=== PATIENT | male | born 1975 | race American Indian/Alaskan Native ===

== ENCOUNTER 2017-11-12 01:58 | Inpatient (IN) | payer OTHER ==
[2017-11-12 03:41] LABS: Hematocrit 23.9 % (35.5-45.6); Mean Corpuscular HGB Conc 33 % (32-34); Mean Corpuscular Hemoglobin 30 pg (28-32); Mean Corpuscular Volume 89 fl (84-94); Platelet Count 671 K/mm3 (140-440); Red Cell Distribution Width 14.8 % (13.2-15.2)
[2017-11-12 03:52] LABS: Albumin 1.8 g/dL (3.9-5); Calcium 8.4 mg/dL (8.4-10.2)
[2017-11-12 04:20] LABS: Total Cells Counted 100
[2017-11-12 04:21] LABS: Anisocytosis 1+; Band Neutrophils # (Manual) 0.3 K/mm3; Basophils % (Manual) 0 % (0.0-1.8); Eosinophils % (Manual) 0 % (0.0-4.3); Giant Platelets Few; Hypochromasia 1+; Large Platelets Few; Platelet Estimate Appears Increased; Stomatocytes Few
[2017-11-12 04:22] LABS: Color,Urine Yellow (Yellow)
[2017-11-12 04:23] LABS: Bacteria,Urine 1+ /HPF (Negative); Bilirubin,Urine NEG (Negative); Blood,Urine SM (Negative); Mucus,Urine FEW /HPF; Protein,Urine >500 mg/dL (Negative); Urobilinogen,Urine < 2.0 mg/dL (<2.0)
[2017-11-12] MEDS ORDERED: NACL 0.9% 250ML 250 ML IV ONE (06:16)
[2017-11-12] MEDS ORDERED: PEPCID IV ONE (06:20)
[2017-11-12] MEDS ORDERED: MORPHINE IV ONE (06:20)
[2017-11-12] MEDS ORDERED: ZOFRAN IV ONE (06:20)
[2017-11-12] MEDS ORDERED: HumuLIN R IV ONE (07:36)
--- NOTE | 2017-11-12 07:42 | Emergency Department Report ---
ED N/V/D HPI - General Chief complaint: Nausea/Vomiting/Diarrhea Stated complaint: NAUSEA AND VOMITING, WEAKNESS Time Seen by Provider: 11/12/17 06:09 Source: patient, family Mode of arrival: Wheelchair Limitations: No Limitations - History of Present Illness Initial comments: Patient is a 42-year-old -[place] male with a past medical history of diabetes who states 8 days ago he started having some swelling to the right knee. At this point he states that he is having difficulty walking on that leg. Patient has pain in the leg and he states is 8 out of 10 in severity. Patient states that the swelling is mostly on the lateral portion of the leg and extending into the thigh. One week ago patient started having some nausea vomiting he states that when he eats he feels as though food goes through them very quickly and he has some diarrhea. Patient does not been able to control his diabetes well secondary to not being able to eat and take his medications. Patient denies any fevers, cough congestion or abdominal pain at this time. - Related Data Home Medications Medication Instructions Recorded Confirmed Last Taken metFORMIN [Glucophage] 500 mg PO BID 05/06/13 05/06/13 Unknown Allergies Allergy/AdvReac Type Severity Reaction Status Date / Time No Known Allergies Allergy Unverified 05/06/13 07:08 ED Review of Systems ROS: Stated complaint: NAUSEA AND VOMITING, WEAKNESS Other details as noted in HPI Comment: All other systems reviewed and negative ED Past Medical Hx - Past Medical History Previous Medical History?: Yes Hx Hypertension: Yes Hx Congestive Heart Failure: No Hx Diabetes: Yes Hx Deep Vein Thrombosis: No Hx Asthma: No Hx COPD: No - Surgical History Past Surgical History?: Yes Hx Pacemaker: No Hx Internal Defibrillator: No Additional Surgical History: 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, great toe and 2nd toe on left foot - Social History Smoking Status: Never Smoker Substance Use Type: Alcohol - Medications Home Medications: Home Medications Medication Instructions Recorded Confirmed Last Taken Type metFORMIN [Glucophage] 500 mg PO BID 05/06/13 05/06/13 Unknown History ED Physical Exam - General Limitations: No Limitations General appearance: alert, in no apparent distress - Head Head exam: Present: atraumatic, normocephalic - Eye Eye exam: Present: normal appearance - ENT ENT exam: Present: mucous membranes moist - Neck Neck exam: Present: normal inspection - Respiratory Respiratory exam: Present: normal lung sounds bilaterally. Absent: respiratory distress, wheezes, rales, rhonchi - Cardiovascular Cardiovascular Exam: Present: normal rhythm, tachycardia. Absent: systolic murmur, diastolic murmur, rubs, gallop - GI/Abdominal GI/Abdominal exam: Present: soft, normal bowel sounds. Absent: distended, tenderness, guarding, rebound, rigid - Rectal Rectal exam: Present: deferred - Extremities Exam Extremities exam: Present: tenderness, joint swelling (patient's right knee shows extensive induration from the proximal calf laterally to the lateral thigh. Patient has knee effusion. The medial knee shows minimal tenderness compared to the lateral aspect of the knee. There is no obvious fluctuance.) - Back Exam Back exam: Present: normal inspection - Neurological Exam Neurological exam: Present: alert, oriented X3 - Psychiatric Psychiatric exam: Present: normal affect, normal mood - Skin Skin exam: Present: warm, dry, intact, normal color. Absent: rash ED Course Vital Signs 11/12/17 11/12/17 11/12/17 02:22 05:04 05:16 Temperature 98.5 F 100 F H Pulse Rate 110 H 101 H Respiratory 18 12 Rate Blood Pressure 126/87 Blood Pressure 131/70 [Left] O2 Sat by Pulse 99 97 97 Oximetry 11/12/17 11/12/17 11/12/17 05:31 06:00 06:30 Temperature Pulse Rate 103 H 101 H 99 H Respiratory 23 17 25 H Rate Blood Pressure 148/64 159/73 146/60 Blood Pressure [Left] O2 Sat by Pulse 95 91 91 Oximetry 11/12/17 07:00 Temperature Pulse Rate 95 H Respiratory 14 Rate Blood Pressure 137/65 Blood Pressure [Left] O2 Sat by Pulse 97 Oximetry ED Medical Decision Making - Lab Data Result diagrams: 11/12/17 03:15 11/12/17 03:15 Lab Results 11/12/17 11/12/17 11/12/17 Range/Units 02:38 03:15 03:15 WBC 30.7 H (4.5-11.0) K/mm3 RBC 2.70 L (3.65-5.03) M/mm3 Hgb 8.0 L (11.8-15.2) gm/dl Hct 23.9 L (35.5-45.6) % MCV 89 (84-94) fl MCH 30 (28-32) pg MCHC 33 (32-34) % RDW 14.8 (13.2-15.2) % Plt Count 671 H (140-440) K/mm3 Add Manual Diff Complete Total Counted 100 Seg Neuts % (Manual) 88.0 H (40.0-70.0) % Band Neutrophils % 1.0 % Lymphocytes % (Manual) 10.0 L (13.4-35.0) % Reactive Lymphs % (Man) 0 % Monocytes % (Manual) 1.0 (0.0-7.3) % Eosinophils % (Manual) 0 (0.0-4.3) % Basophils % (Manual) 0 (0.0-1.8) % Metamyelocytes % 0 % Myelocytes % 0 % Promyelocytes % 0 % Blast Cells % 0 % Nucleated RBC % Not Reportable Seg Neutrophils # Man 27.0 H (1.8-7.7) K/mm3 Band Neutrophils # 0.3 K/mm3 Lymphocytes # (Manual) 3.1 (1.2-5.4) K/mm3 Abs React Lymphs (Man) 0.0 K/mm3 Monocytes # (Manual) 0.3 (0.0-0.8) K/mm3 Eosinophils # (Manual) 0.0 (0.0-0.4) K/mm3 Basophils # (Manual) 0.0 (0.0-0.1) K/mm3 Metamyelocytes # 0.0 K/mm3 Myelocytes # 0.0 K/mm3 Promyelocytes # 0.0 K/mm3 Blast Cells # 0.0 K/mm3 WBC Morphology Not Reportable Hypersegmented Neuts Not Reportable Hyposegmented Neuts Not Reportable Hypogranular Neuts Not Reportable Smudge Cells Not Reportable Toxic Granulation Not Reportable Toxic Vacuolation Not Reportable Dohle Bodies Not Reportable Pelger-Huet Anomaly Not Reportable Romeo Rods Not Reportable Platelet Estimate Appears increased Clumped Platelets Not Reportable Plt Clumps, EDTA Not Reportable Large Platelets Few Giant Platelets Few Platelet Satelliting Not Reportable Plt Morphology Comment Not Reportable RBC Morphology Not Reportable Dimorphic RBCs Not Reportable Polychromasia Not Reportable Hypochromasia 1+ Poikilocytosis Not Reportable Anisocytosis 1+ Microcytosis Not Reportable Macrocytosis Not Reportable Spherocytes Not Reportable Pappenheimer Bodies Not Reportable Sickle Cells Not Reportable Target Cells Not Reportable Tear Drop Cells Not Reportable Ovalocytes Not Reportable Stomatocytes Few Helmet Cells Not Reportable [place] Bodies Not Reportable [place] Not Reportable [place] Cells Not Reportable Bite Cells Not Reportable Crenated Cell Not Reportable Elliptocytes Not Reportable Acanthocytes (Spur) Not Reportable Rouleaux Not Reportable Hemoglobin C Crystals Not Reportable Schistocytes Not Reportable Malaria parasites Not Reportable Roman Bodies Not Reportable Hem Pathologist Commnt No VBG pH (7.320-7.420) Sodium 133 L (137-145) mmol/L Potassium 4.5 (3.6-5.0) mmol/L Chloride 92.7 L (98-107) mmol/L Carbon Dioxide 23 (22-30) mmol/L Anion Gap 22 mmol/L BUN 41 H (9-20) mg/dL Creatinine 2.3 H (0.8-1.5) mg/dL Estimated GFR 38 ml/min BUN/Creatinine Ratio 18 % Glucose 404 H (75-100) mg/dL POC Glucose 438 H (70-105) Lactic Acid (0.7-2.0) mmol/L Calcium 8.4 (8.4-10.2) mg/dL Total Bilirubin 0.40 (0.1-1.2) mg/dL AST 15 (5-40) units/L ALT 7 (7-56) units/L Alkaline Phosphatase 140 H (35-129) units/L Total Creatine Kinase (55-170) units/L Troponin T (0.00-0.029) ng/mL Total Protein 8.1 (6.3-8.2) g/dL Albumin 1.8 L (3.9-5) g/dL Albumin/Globulin Ratio 0.3 % Triglycerides (2-149) mg/dL Cholesterol (50-199) mg/dL LDL Cholesterol Direct (50-130) mg/dL Urine Color (Yellow) Urine Turbidity (Clear) Urine pH (5.0-7.0) Ur Specific [place] (1.003-1.030) Urine Protein (Negative) mg/dL Urine Glucose (UA) (Negative) mg/dL Urine Ketones (Negative) mg/dL Urine Blood (Negative) Urine Nitrite (Negative) Urine Bilirubin (Negative) Urine Urobilinogen (<2.0) mg/dL Ur Leukocyte Esterase (Negative) Urine WBC (Auto) (0.0-6.0) /HPF Urine RBC (Auto) (0.0-6.0) /HPF U Epithel Cells (Auto) (0-13.0) /HPF Urine Bacteria (Auto) (Negative) /HPF Urine Mucus /HPF 11/12/17 11/12/17 11/12/17 Range/Units 03:15 03:15 03:15 WBC (4.5-11.0) K/mm3 RBC (3.65-5.03) M/mm3 Hgb (11.8-15.2) gm/dl Hct (35.5-45.6) % MCV (84-94) fl MCH (28-32) pg MCHC (32-34) % RDW (13.2-15.2) % Plt Count (140-440) K/mm3 Add Manual Diff Total Counted Seg Neuts % (Manual) (40.0-70.0) % Band Neutrophils % % Lymphocytes % (Manual) (13.4-35.0) % Reactive Lymphs % (Man) % Monocytes % (Manual) (0.0-7.3) % Eosinophils % (Manual) (0.0-4.3) % Basophils % (Manual) (0.0-1.8) % Metamyelocytes % % Myelocytes % % Promyelocytes % % Blast Cells % % Nucleated RBC % Seg Neutrophils # Man (1.8-7.7) K/mm3 Band Neutrophils # K/mm3 Lymphocytes # (Manual) (1.2-5.4) K/mm3 Abs React Lymphs (Man) K/mm3 Monocytes # (Manual) (0.0-0.8) K/mm3 Eosinophils # (Manual) (0.0-0.4) K/mm3 Basophils # (Manual) (0.0-0.1) K/mm3 Metamyelocytes # K/mm3 Myelocytes # K/mm3 Promyelocytes # K/mm3 Blast Cells # K/mm3 WBC Morphology Hypersegmented Neuts Hyposegmented Neuts Hypogranular Neuts Smudge Cells Toxic Granulation Toxic Vacuolation Dohle Bodies Pelger-Huet Anomaly Romeo Rods Platelet Estimate Clumped Platelets Plt Clumps, EDTA Large Platelets Giant Platelets Platelet Satelliting Plt Morphology Comment RBC Morphology Dimorphic RBCs Polychromasia Hypochromasia Poikilocytosis Anisocytosis Microcytosis Macrocytosis Spherocytes Pappenheimer Bodies Sickle Cells Target Cells Tear Drop Cells Ovalocytes Stomatocytes Helmet Cells [place] Bodies [place] Cells Bite Cells Crenated Cell Elliptocytes Acanthocytes (Spur) Rouleaux Hemoglobin C Crystals Schistocytes Malaria parasites Roman Bodies Hem Pathologist Commnt VBG pH 7.382 (7.320-7.420) Sodium (137-145) mmol/L Potassium (3.6-5.0) mmol/L Chloride (98-107) mmol/L Carbon Dioxide (22-30) mmol/L Anion Gap mmol/L BUN (9-20) mg/dL Creatinine (0.8-1.5) mg/dL Estimated GFR ml/min BUN/Creatinine Ratio % Glucose (75-100) mg/dL POC Glucose (70-105) Lactic Acid 1.50 (0.7-2.0) mmol/L Calcium (8.4-10.2) mg/dL Total Bilirubin (0.1-1.2) mg/dL AST (5-40) units/L ALT (7-56) units/L Alkaline Phosphatase (35-129) units/L Total Creatine Kinase 63 (55-170) units/L Troponin T 0.106 H* (0.00-0.029) ng/mL Total Protein (6.3-8.2) g/dL Albumin (3.9-5) g/dL Albumin/Globulin Ratio % Triglycerides 95 (2-149) mg/dL Cholesterol 102 (50-199) mg/dL LDL Cholesterol Direct 47 L (50-130) mg/dL Urine Color (Yellow) Urine Turbidity (Clear) Urine pH (5.0-7.0) Ur Specific [place] (1.003-1.030) Urine Protein (Negative) mg/dL Urine Glucose (UA) (Negative) mg/dL Urine Ketones (Negative) mg/dL Urine Blood (Negative) Urine Nitrite (Negative) Urine Bilirubin (Negative) Urine Urobilinogen (<2.0) mg/dL Ur Leukocyte Esterase (Negative) Urine WBC (Auto) (0.0-6.0) /HPF Urine RBC (Auto) (0.0-6.0) /HPF U Epithel Cells (Auto) (0-13.0) /HPF Urine Bacteria (Auto) (Negative) /HPF Urine Mucus /HPF 11/12/17 11/12/17 Range/Units 03:37 05:58 WBC (4.5-11.0) K/mm3 RBC (3.65-5.03) M/mm3 Hgb (11.8-15.2) gm/dl Hct (35.5-45.6) % MCV (84-94) fl MCH (28-32) pg MCHC (32-34) % RDW (13.2-15.2) % Plt Count (140-440) K/mm3 Add Manual Diff Total Counted Seg Neuts % (Manual) (40.0-70.0) % Band Neutrophils % % Lymphocytes % (Manual) (13.4-35.0) % Reactive Lymphs % (Man) % Monocytes % (Manual) (0.0-7.3) % Eosinophils % (Manual) (0.0-4.3) % Basophils % (Manual) (0.0-1.8) % Metamyelocytes % % Myelocytes % % Promyelocytes % % Blast Cells % % Nucleated RBC % Seg Neutrophils # Man (1.8-7.7) K/mm3 Band Neutrophils # K/mm3 Lymphocytes # (Manual) (1.2-5.4) K/mm3 Abs React Lymphs (Man) K/mm3 Monocytes # (Manual) (0.0-0.8) K/mm3 Eosinophils # (Manual) (0.0-0.4) K/mm3 Basophils # (Manual) (0.0-0.1) K/mm3 Metamyelocytes # K/mm3 Myelocytes # K/mm3 Promyelocytes # K/mm3 Blast Cells # K/mm3 WBC Morphology Hypersegmented Neuts Hyposegmented Neuts Hypogranular Neuts Smudge Cells Toxic Granulation Toxic Vacuolation Dohle Bodies Pelger-Huet Anomaly Romeo Rods Platelet Estimate Clumped Platelets Plt Clumps, EDTA Large Platelets Giant Platelets Platelet Satelliting Plt Morphology Comment RBC Morphology Dimorphic RBCs Polychromasia Hypochromasia Poikilocytosis Anisocytosis Microcytosis Macrocytosis Spherocytes Pappenheimer Bodies Sickle Cells Target Cells Tear Drop Cells Ovalocytes Stomatocytes Helmet Cells [place] Bodies [place] Kimber[place] Cells Bite Cells Crenated Cell Elliptocytes Acanthocytes (Spur) Rouleaux Hemoglobin C Crystals Schistocytes Malaria parasites Roman Bodies Hem Pathologist Commnt VBG pH (7.320-7.420) Sodium (137-145) mmol/L Potassium (3.6-5.0) mmol/L Chloride (98-107) mmol/L Carbon Dioxide (22-30) mmol/L Anion Gap mmol/L BUN (9-20) mg/dL Creatinine (0.8-1.5) mg/dL Estimated GFR ml/min BUN/Creatinine Ratio % Glucose (75-100) mg/dL POC Glucose 390 H (70-105) Lactic Acid (0.7-2.0) mmol/L Calcium (8.4-10.2) mg/dL Total Bilirubin (0.1-1.2) mg/dL AST (5-40) units/L ALT (7-56) units/L Alkaline Phosphatase (35-129) units/L Total Creatine Kinase (55-170) units/L Troponin T (0.00-0.029) ng/mL Total Protein (6.3-8.2) g/dL Albumin (3.9-5) g/dL Albumin/Globulin Ratio % Triglycerides (2-149) mg/dL Cholesterol (50-199) mg/dL LDL Cholesterol Direct (50-130) mg/dL Urine Color Yellow (Yellow) Urine Turbidity Clear (Clear) Urine pH 5.0 (5.0-7.0) Ur Specific [place] 1.024 (1.003-1.030) Urine Protein >500 (Negative) mg/dL Urine Glucose (UA) >=500 (Negative) mg/dL Urine Ketones Tr (Negative) mg/dL Urine Blood Sm (Negative) Urine Nitrite Neg (Negative) Urine Bilirubin Neg (Negative) Urine Urobilinogen < 2.0 (<2.0) mg/dL Ur Leukocyte Esterase Neg (Negative) Urine WBC (Auto) 14.0 H (0.0-6.0) /HPF Urine RBC (Auto) 13.0 (0.0-6.0) /HPF U Epithel Cells (Auto) 2.0 (0-13.0) /HPF Urine Bacteria (Auto) 1+ (Negative) /HPF Urine Mucus Few /HPF - EKG Data -: EKG Interpreted by Pr - EKG Data Interpretation: other (EKG shows sinus tachycardia 101, axis normal intervals no ST segment elevation or depression. Interpretation is 303) - Medical Decision Making She is a 42-year-old male past medical history diabetes who appears to have a extensive cellulitis to the right lateral lower extremity. Patient is [place] service criteria. Patient will start on IV fluids. The patient did not require 30 mL per KG bolus since his lactic acid is 1.5 and his blood pressures stayed within normal limits. Patient was started on clindamycin. Blood cultures have been obtained. Patient admitted to the hospitalist service at this time. Critical Care Time: Yes Critical care time in (mins) excluding proc time.: 30 Critical care attestation.: If time is entered above; I have spent that time in minutes in the direct care of this critically ill patient, excluding procedure time. ED Disposition Clinical Impression: Cellulitis, Hyperglycemia, Acute renal injury, SIRS (systemic inflammatory response syndrome) Disposition: OP ADMIT IP TO THIS HOSP Is pt being admited?: Yes Does the pt Need Aspirin: No Condition: Stable Referrals: MIGUEL BENOIT DO [Primary Care Provider] - 3-5 Days
[2017-11-12 07:51] LABS: Chol/HDL Ratio 3.4 %
[2017-11-12] MEDS ORDERED: D50W (25GM) Syringe IV PRN (08:05)
--- NOTE | 2017-11-12 08:08 | History and Physical Report ---
History of Present Illness Date of examination: 11/12/17 Chief complaint: Right knee swelling History of present illness: 42-year-old -[place] male with past medical history significant for diabetes, diabetic foot ulcer s/p amputation of multiple toe; presented to the emergency department complaining of right knee swelling of 8 days duration. Patient is complaining swelling, sharp pain, 10 out of 10 intensity, no radiation, associated with fever ,nausea, vomiting and diarrhea. Patient trauma to the site or insect bite. Patient said he had watery diarrhea for the last 6 days. Denied abdominal pain. Patient had DM which is uncontrolled. REVIEW OF SYSTEMS: GENERAL: no weight change, no fatigue, + fever HEAD: no head ache EYES: no blurry vision, no acute visual loss EARS: no hearing loss, no discharge, no earache NOSE: no stuffiness, no sneezing, no discharge MOUTH, THROAT AND NECK: no bleeding gums, no sore throat, no swollen neck CARDIAC: no palpitations, no dyspnea on exertion, no orthopnea, no PND, no edema , no chest pain RESPIRATORY: no shortness of breath, no wheeze, no cough, no sputum, no hemoptysis, no asthma GI: As stated in HPI. URINARY: no change in frequency, no urgency, no polyuria, no hematuria, no incontinence MUSCULOSKELETAL: As stated in HPI. NEUROLOGIC: no loss of sensation/numbness, no tingling, no tremors, no weakness/ paralysis HEMATOLOGIC: no anemia, no easy bruising ENDOCRINE: no heat/cold intolerance, no polyuria, no polydipsia, no thyroid problems, + diabetes PSYCHIATRIC: no anxiety, no depression, no suicidal ideations Past History Past Medical History: diabetes Past Surgical History: Other (Amputation of left great and 2nd toe, Right great and 5th toe) Social history: full code. denies: smoking, alcohol abuse, prescription drug abuse, IV drug use Family history: diabetes (mother), hypertension (father) Medications and Allergies Allergies Allergy/AdvReac Type Severity Reaction Status Date / Time No Known Allergies Allergy Unverified 05/06/13 07:08 Home Medications Medication Instructions Recorded Confirmed Last Taken Type metFORMIN [Glucophage] 500 mg PO BID 05/06/13 05/06/13 Unknown History Active Meds: Active Medications Dextrose (D50w (25gm) Syringe) 50 ml IV PRN PRN PRN Reason: Hypoglycemia Clindamycin HCl (Cleocin 600 Mg/50 Ml) 600 mg in 50 mls @ 100 mls/hr IV Q8HR DOTTIE; Protocol Sodium Chloride (Nacl 0.9% 1000 Ml) 1,000 mls @ 125 mls/hr IV DIRECT DOTTIE Insulin Human Isoph/Insulin Regular (Humulin 70/30) 10 unit SUB-Q BIDDIAB DOTTIE Insulin Human Lispro (Humalog) 0 unit SUB-Q ACHS DOTTIE; Protocol Exam - Physical Exam Narrative exam: Not in cardiopulmonary distress. The patient is obese. Vital signs as documented. Head exam is unremarkable. No scleral icterus . Neck is without jugular venous distension, thyromegaly, or carotid bruits. Lungs are clear to auscultation. Cardiac exam reveals regular rate and Rhythm. First and second heart sounds normal. No murmurs, rubs or gallops. Abdominal exam reveals normal bowel sounds, no masses, no organomegaly and no aortic enlargement. Extremities swelling, erythema and tenderness of the right leg extending from the right thigh to the bynum. PR[employer] BR[employer]ER: Alert and oriented 3. No focal weakness. - Constitutional Vitals: Temp Pulse Resp BP Pulse Ox 99.8 F H 95 H 12 138/59 96 11/12/17 07:42 11/12/17 07:42 11/12/17 07:42 11/12/17 07:42 11/12/17 07:42 Results - Labs CBC & Chem 7: 11/12/17 03:15 11/12/17 03:15 Labs: Laboratory Last Values WBC 30.7 K/mm3 (4.5-11.0) H 11/12/17 03:15 RBC 2.70 M/mm3 (3.65-5.03) L 11/12/17 03:15 Hgb 8.0 gm/dl (11.8-15.2) L 11/12/17 03:15 Hct 23.9 % (35.5-45.6) L 11/12/17 03:15 MCV 89 fl (84-94) 11/12/17 03:15 MCH 30 pg (28-32) 11/12/17 03:15 MCHC 33 % (32-34) 11/12/17 03:15 RDW 14.8 % (13.2-15.2) 11/12/17 03:15 Plt Count 671 K/mm3 (140-440) H 11/12/17 03:15 Add Manual Diff Complete 11/12/17 03:15 Total Counted 100 11/12/17 03:15 Seg Neuts % (Manual) 88.0 % (40.0-70.0) H 11/12/17 03:15 Band Neutrophils % 1.0 % 11/12/17 03:15 Lymphocytes % (Manual) 10.0 % (13.4-35.0) L 11/12/17 03:15 Reactive Lymphs % (Man) 0 % 11/12/17 03:15 Monocytes % (Manual) 1.0 % (0.0-7.3) 11/12/17 03:15 Eosinophils % (Manual) 0 % (0.0-4.3) 11/12/17 03:15 Basophils % (Manual) 0 % (0.0-1.8) 11/12/17 03:15 Metamyelocytes % 0 % 11/12/17 03:15 Myelocytes % 0 % 11/12/17 03:15 Promyelocytes % 0 % 11/12/17 03:15 Blast Cells % 0 % 11/12/17 03:15 Nucleated RBC % Not Reportable 11/12/17 03:15 Seg Neutrophils # Man 27.0 K/mm3 (1.8-7.7) H 11/12/17 03:15 Band Neutrophils # 0.3 K/mm3 11/12/17 03:15 Lymphocytes # (Manual) 3.1 K/mm3 (1.2-5.4) 11/12/17 03:15 Abs React Lymphs (Man) 0.0 K/mm3 11/12/17 03:15 Monocytes # (Manual) 0.3 K/mm3 (0.0-0.8) 11/12/17 03:15 Eosinophils # (Manual) 0.0 K/mm3 (0.0-0.4) 11/12/17 03:15 Basophils # (Manual) 0.0 K/mm3 (0.0-0.1) 11/12/17 03:15 Metamyelocytes # 0.0 K/mm3 11/12/17 03:15 Myelocytes # 0.0 K/mm3 11/12/17 03:15 Promyelocytes # 0.0 K/mm3 11/12/17 03:15 Blast Cells # 0.0 K/mm3 11/12/17 03:15 WBC Morphology Not Reportable 11/12/17 03:15 Hypersegmented Neuts Not Reportable 11/12/17 03:15 Hyposegmented Neuts Not Reportable 11/12/17 03:15 Hypogranular Neuts Not Reportable 11/12/17 03:15 Smudge Cells Not Reportable 11/12/17 03:15 Toxic Granulation Not Reportable 11/12/17 03:15 Toxic Vacuolation Not Reportable 11/12/17 03:15 Dohle Bodies Not Reportable 11/12/17 03:15 Pelger-Huet Anomaly Not Reportable 11/12/17 03:15 Romeo Rods Not Reportable 11/12/17 03:15 Platelet Estimate Appears increased 11/12/17 03:15 Clumped Platelets Not Reportable 11/12/17 03:15 Plt Clumps, EDTA Not Reportable 11/12/17 03:15 Large Platelets Few 11/12/17 03:15 Giant Platelets Few 11/12/17 03:15 Platelet Satelliting Not Reportable 11/12/17 03:15 Plt Morphology Comment Not Reportable 11/12/17 03:15 RBC Morphology Not Reportable 11/12/17 03:15 Dimorphic RBCs Not Reportable 11/12/17 03:15 Polychromasia Not Reportable 11/12/17 03:15 Hypochromasia 1+ 11/12/17 03:15 Poikilocytosis Not Reportable 11/12/17 03:15 Anisocytosis 1+ 11/12/17 03:15 Microcytosis Not Reportable 11/12/17 03:15 Macrocytosis Not Reportable 11/12/17 03:15 Spherocytes Not Reportable 11/12/17 03:15 Pappenheimer Bodies Not Reportable 11/12/17 03:15 Sickle Cells Not Reportable 11/12/17 03:15 Target Cells Not Reportable 11/12/17 03:15 Tear Drop Cells Not Reportable 11/12/17 03:15 Ovalocytes Not Reportable 11/12/17 03:15 Stomatocytes Few 11/12/17 03:15 Helmet Cells Not Reportable 11/12/17 03:15 [place] Bodies Not Reportable 11/12/17 03:15 [place] Rings Not Reportable 11/12/17 03:15 [place] Cells Not Reportable 11/12/17 03:15 Bite Cells Not Reportable 11/12/17 03:15 Crenated Cell Not Reportable 11/12/17 03:15 Elliptocytes Not Reportable 11/12/17 03:15 Acanthocytes (Spur) Not Reportable 11/12/17 03:15 Rouleaux Not Reportable 11/12/17 03:15 Hemoglobin C Crystals Not Reportable 11/12/17 03:15 Schistocytes Not Reportable 11/12/17 03:15 Malaria parasites Not Reportable 11/12/17 03:15 Roman Bodies Not Reportable 11/12/17 03:15 Hem Pathologist Commnt No 11/12/17 03:15 VBG pH 7.382 (7.320-7.420) 11/12/17 03:15 Sodium 133 mmol/L (137-145) L 11/12/17 03:15 Potassium 4.5 mmol/L (3.6-5.0) 11/12/17 03:15 Chloride 92.7 mmol/L (98-107) L 11/12/17 03:15 Carbon Dioxide 23 mmol/L (22-30) 11/12/17 03:15 Anion Gap 22 mmol/L 11/12/17 03:15 BUN 41 mg/dL (9-20) H 11/12/17 03:15 Creatinine 2.3 mg/dL (0.8-1.5) H 11/12/17 03:15 Estimated GFR 38 ml/min 11/12/17 03:15 BUN/Creatinine Ratio 18 % 11/12/17 03:15 Glucose 404 mg/dL (75-100) H 11/12/17 03:15 POC Glucose 390 (70-105) H 11/12/17 05:58 Lactic Acid 1.50 mmol/L (0.7-2.0) 11/12/17 03:15 Calcium 8.4 mg/dL (8.4-10.2) 11/12/17 03:15 Total Bilirubin 0.40 mg/dL (0.1-1.2) 11/12/17 03:15 AST 15 units/L (5-40) 11/12/17 03:15 ALT 7 units/L (7-56) 11/12/17 03:15 Alkaline Phosphatase 140 units/L (35-129) H 11/12/17 03:15 Total Creatine Kinase 63 units/L (55-170) 11/12/17 03:15 Troponin T 0.106 ng/mL (0.00-0.029) H* 11/12/17 03:15 Total Protein 8.1 g/dL (6.3-8.2) 11/12/17 03:15 Albumin 1.8 g/dL (3.9-5) L 11/12/17 03:15 Albumin/Globulin Ratio 0.3 % 11/12/17 03:15 Triglycerides 95 mg/dL (2-149) 11/12/17 03:15 Cholesterol 102 mg/dL (50-199) 11/12/17 03:15 LDL Cholesterol Direct 47 mg/dL (50-130) L 11/12/17 03:15 HDL Cholesterol 30 mg/dL (40-59) L 11/12/17 03:15 Cholesterol/HDL Ratio 3.40 % 11/12/17 03:15 Urine Color Yellow (Yellow) 11/12/17 03:37 Urine Turbidity Clear (Clear) 11/12/17 03:37 Urine pH 5.0 (5.0-7.0) 11/12/17 03:37 Ur Specific [place] 1.024 (1.003-1.030) 11/12/17 03:37 Urine Protein >500 mg/dL (Negative) 11/12/17 03:37 Urine Glucose (UA) >=500 mg/dL (Negative) 11/12/17 03:37 Urine Ketones Tr mg/dL (Negative) 11/12/17 03:37 Urine Blood Sm (Negative) 11/12/17 03:37 Urine Nitrite Neg (Negative) 11/12/17 03:37 Urine Bilirubin Neg (Negative) 11/12/17 03:37 Urine Urobilinogen < 2.0 mg/dL (<2.0) 11/12/17 03:37 Ur Leukocyte Esterase Neg (Negative) 11/12/17 03:37 Urine WBC (Auto) 14.0 /HPF (0.0-6.0) H 11/12/17 03:37 Urine RBC (Auto) 13.0 /HPF (0.0-6.0) 11/12/17 03:37 U Epithel Cells (Auto) 2.0 /HPF (0-13.0) 11/12/17 03:37 Urine Bacteria (Auto) 1+ /HPF (Negative) 11/12/17 03:37 Urine Mucus Few /HPF 11/12/17 03:37 - Imaging and Cardiology Imaging and Cardiology: MRI right knee Assessment and Plan Assessment and plan: 42-year-old -[place] male with past medical history significant for uncontrolled diabetes mellitus, obesity, status post multiple toe amputation presented to the emergency department complaining of right knee swelling and pain Sepsis - leukocytosis, fever - Patient is on IV vancomycin and Zosyn, IV fluids - ID consulted Right knee cellulitis - Patient is on IV vancomycin and Zosyn - MRI of the right leg was done Large joint effusion is present. Medial meniscus is mildly displaced anteriorly, I suspect there is meniscal capsular separation possibly disruption of the medial meniscal anchor as well. No meniscal tear however is visualized. Mild tendinosis patellar tendon. Large amount of subcutaneous edema visualized medially greater than laterally. I cannot exclude cellulitis. - Orthopedics consulted Obesity - patient is counseled about weight loss, diet and exercise Diabetes mellitus with hyperglycemia - Resumed his home dose of humolog 15 mg TID - Started on insulin 70/30 20 twice a day - Will Monitor Accu-Chek and adjust as needed DVT prophylaxis - Lovenox [facility] Advance Directives: Yes VTE prophylaxis?: Chemical Plan of care discussed with patient/family: Yes
[2017-11-12] MEDS ORDERED: ZOFRAN IV PRN (08:27)
[2017-11-12] MEDS ORDERED: VANCOMYCIN PHARMACY TO DOSE IV SCH (09:00)
[2017-11-12 09:11] LABS: Bilirubin,Urine NEG (Negative); Blood,Urine MOD (Negative); Color,Urine Yellow (Yellow); Hyaline Casts,Urine 1 /LPF; Mucus,Urine FEW /HPF; Urobilinogen,Urine < 2.0 mg/dL (<2.0)
[2017-11-12 09:12] LABS: Protein,Urine >500 mg/dL (Negative)
[2017-11-12] MEDS ORDERED: VANCOMYCIN 2,000 MG in NACL 0.9% 500 ML 500 ML IV ONE (10:00)
[2017-11-12] MEDS ORDERED: PEPCID PO ONE (10:00)
[2017-11-12] MEDS ORDERED: HumaLOG SUB-Q SCH (11:30)
[2017-11-12] MEDS: ZOSYN/NS 3.375GM/50ML 3.375 GM/50 ML BAG IV SCH ×3 (11:58→21:40)
[2017-11-12] MEDS: HumuLIN R SUB-Q SCH ×3 (12:30→22:05)
[2017-11-12] MEDS ORDERED: CLEOCIN 600 MG/50 mL 600 MG/50 ML BAG IV SCH (14:00)
--- NOTE | 2017-11-12 14:57 | Magnetic Resonance Report ---
FINAL REPORT PROCEDURE: MR LE JOINT RT WO CON TECHNIQUE: Magnetic resonance imaging of the RIGHT knee was performed using standard pulse sequences. CPT 42617 HISTORY: Right knee joint pain and swelling COMPARISON: No prior studies are available for comparison. FINDINGS: Due to the patient's body habitus the knee coil would not fit. The knee was visualized in the body coil. This does decrease image quality. The signal intensity from the bones of the knee appear normal. No fracture is visualized. A large joint effusion is present. The anterior and the posterior cruciate ligaments as well as the medial and lateral collateral ligaments and iliotibial band are intact. Patellar retinaculum are intact. There is minimal heterogeneous increased signal in the patellar tendon suggesting mild tendinosis. No discrete meniscal tears are identified. The medial meniscus appears to be mildly displaced anteriorly. The anterior horn no longer completely articulates in the joint space. I cannot exclude disruption of the meniscal anchor as well as meniscal capsular separation. No discrete tear of the meniscus however is visualized. The lateral meniscus is intact. No articular cartilage defects are identified. Large amount of subcutaneous edema present throughout the knee. This is greatest anterior medial aspect of the knee. IMPRESSION: Large joint effusion is present. Medial meniscus is mildly displaced anteriorly, I suspect there is meniscal capsular separation possibly disruption of the medial meniscal anchor as well. No meniscal tear however is visualized. Mild tendinosis patellar tendon. Large amount of subcutaneous edema visualized medially greater than laterally. I cannot exclude cellulitis.
--- NOTE | 2017-11-12 18:19 | Consultation ---
History of Present Illness - Reason for Consult Consult date: 11/12/17 anemia. Requesting physician: LAURY CHRISTENSEN - History of Present Illness Thank you for this consult, patient seen/examined, records reviewed, case d/w patient. He presented to the ER, with intractable N/V, labs revealed elevated BG , mild uti, elevated WBC, with possible cellulites.also low hgb., elevated PLT as a reactive process.Pls see w/u labs.follow you. Past History Past Medical History: diabetes Past Surgical History: Other (Amputation of left great and 2nd toe, Right great and 5th toe) Social history: full code. denies: smoking, alcohol abuse, prescription drug abuse, IV drug use Family history: diabetes (mother), hypertension (father) Medications and Allergies Allergies Allergy/AdvReac Type Severity Reaction Status Date / Time No Known Allergies Allergy Unverified 05/06/13 07:08 Home Medications Medication Instructions Recorded Confirmed Last Taken Type metFORMIN [Glucophage] 500 mg PO BID 05/06/13 05/06/13 Unknown History Active Meds: Active Medications Dextrose (D50w (25gm) Syringe) 50 ml IV PRN PRN PRN Reason: Hypoglycemia Heparin Sodium (Porcine) (Heparin) 5,000 unit SUB-Q Q12HR DOTTIE Sodium Chloride (Nacl 0.9% 1000 Ml) 1,000 mls @ 125 mls/hr IV DIRECT DTOTIE Vancomycin HCl 2,000 mg/ (Sodium Chloride) 520 mls @ 250 mls/hr IV Q12H DOTTIE Piperacillin Sod/Tazobactam Sod (Zosyn/Ns 3.375gm/50ml) 3.375 gm in 50 mls @ 100 mls/hr IV Q8H DOTTIE; Protocol Sodium Chloride (Nacl 0.9% 1000 Ml) 1,000 mls @ 100 mls/hr IV DIRECT DOTTIE Insulin Human Isoph/Insulin Regular (Humulin 70/30) 20 unit SUB-Q BID DOTTIE Insulin Human Regular (Humulin R) 15 units SUB-Q ACHS DOTTIE Last Admin: 11/12/17 17:29 Dose: 15 units Ondansetron HCl (Zofran) 4 mg IV Q8H PRN PRN Reason: N/V unrelieved by Reglan Oxycodone/Acetaminophen (Percocet 5/325) 2 tab PO Q6H PRN PRN Reason: Pain, Moderate (4-6) Vancomycin HCl (Vancomycin Pharmacy To Dose) 1 each IV PKCONSULT DOTTIE; Protocol Review of Systems Constitutional: fatigue, malaise, chronic pain Gastrointestinal: abdominal pain, nausea, vomiting Exam - Constitutional Vitals: Temp Pulse Resp BP Pulse Ox 98.8 F 87 20 147/77 97 11/12/17 15:03 11/12/17 15:03 11/12/17 15:03 11/12/17 15:03 11/12/17 15:03 General appearance: Present: mild distress - EENT Eyes: Present: PERRL ENT: hearing intact, clear oral mucosa - Neck Neck: Present: supple, normal ROM - Respiratory Respiratory effort: normal Respiratory: bilateral: CTA - Cardiovascular Heart Sounds: Present: S1 & S2. Absent: rub, click - Extremities Extremities: pulses symmetrical, No edema Peripheral Pulses: within normal limits - Abdominal General gastrointestinal: Present: soft, non-tender, non-distended, normal bowel sounds Male genitourinary: Present: deferred - Rectal Rectal Exam: deferred - Integumentary Integumentary: Present: clear, warm, dry - Musculoskeletal Musculoskeletal: gait normal, strength equal bilaterally - Psychiatric Psychiatric: appropriate mood/affect, intact judgment & insight - Neurologic Neurologic: CNII-XII intact, moves all extremities Results - Labs CBC & Chem 7: 11/12/17 03:15 11/12/17 03:15 Labs: Abnormal lab results 11/12/17 11/12/17 11/12/17 Range/Units 02:38 03:15 03:15 WBC 30.7 H (4.5-11.0) K/mm3 RBC 2.70 L (3.65-5.03) M/mm3 Hgb 8.0 L (11.8-15.2) gm/dl Hct 23.9 L (35.5-45.6) % Plt Count 671 H (140-440) K/mm3 Seg Neuts % (Manual) 88.0 H (40.0-70.0) % Lymphocytes % (Manual) 10.0 L (13.4-35.0) % Seg Neutrophils # Man 27.0 H (1.8-7.7) K/mm3 Sodium 133 L (137-145) mmol/L Chloride 92.7 L (98-107) mmol/L BUN 41 H (9-20) mg/dL Creatinine 2.3 H (0.8-1.5) mg/dL Glucose 404 H (75-100) mg/dL POC Glucose 438 H (70-105) Hemoglobin A1c (4-6) % Alkaline Phosphatase 140 H (35-129) units/L Troponin T (0.00-0.029) ng/mL Albumin 1.8 L (3.9-5) g/dL LDL Cholesterol Direct (50-130) mg/dL HDL Cholesterol (40-59) mg/dL Urine WBC (Auto) (0.0-6.0) /HPF 11/12/17 11/12/17 11/12/17 Range/Units 03:15 03:15 03:37 WBC (4.5-11.0) K/mm3 RBC (3.65-5.03) M/mm3 Hgb (11.8-15.2) gm/dl Hct (35.5-45.6) % Plt Count (140-440) K/mm3 Seg Neuts % (Manual) (40.0-70.0) % Lymphocytes % (Manual) (13.4-35.0) % Seg Neutrophils # Man (1.8-7.7) K/mm3 Sodium (137-145) mmol/L Chloride (98-107) mmol/L BUN (9-20) mg/dL Creatinine (0.8-1.5) mg/dL Glucose (75-100) mg/dL POC Glucose (70-105) Hemoglobin A1c 9.7 H (4-6) % Alkaline Phosphatase (35-129) units/L Troponin T 0.106 H* (0.00-0.029) ng/mL Albumin (3.9-5) g/dL LDL Cholesterol Direct 47 L (50-130) mg/dL HDL Cholesterol 30 L (40-59) mg/dL Urine WBC (Auto) 14.0 H (0.0-6.0) /HPF 11/12/17 11/12/17 11/12/17 Range/Units 05:58 12:03 Unknown WBC (4.5-11.0) K/mm3 RBC (3.65-5.03) M/mm3 Hgb (11.8-15.2) gm/dl Hct (35.5-45.6) % Plt Count (140-440) K/mm3 Seg Neuts % (Manual) (40.0-70.0) % Lymphocytes % (Manual) (13.4-35.0) % Seg Neutrophils # Man (1.8-7.7) K/mm3 Sodium (137-145) mmol/L Chloride (98-107) mmol/L BUN (9-20) mg/dL Creatinine (0.8-1.5) mg/dL Glucose (75-100) mg/dL POC Glucose 390 H 349 H (70-105) Hemoglobin A1c (4-6) % Alkaline Phosphatase (35-129) units/L Troponin T (0.00-0.029) ng/mL Albumin (3.9-5) g/dL LDL Cholesterol Direct (50-130) mg/dL HDL Cholesterol (40-59) mg/dL Urine WBC (Auto) 14.0 H (0.0-6.0) /HPF Assessment and Plan - Patient Problems (1) Acute renal injury Current Visit: Yes Status: Acute Plan to address problem: probably due to dehydration, due ti N/V.. hydrate, and monitor labs. (2) Cellulitis Current Visit: Yes Status: Acute Plan to address problem: ABX therapy. (3) Hyperglycemia Current Visit: Yes Status: Acute Plan to address problem: Better control of BG. (4) Anemia Current Visit: No Status: Chronic Plan to address problem: see w/up, continue to monitor labs. 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 (6) Leukocytosis Current Visit: No Status: Chronic Plan to address problem: due to uti/cellulites. (7) Osteomyelitis of left foot Current Visit: No Status: Chronic Plan to address problem: once established/confirmed, prolonged ABX.
[2017-11-12] MEDS: NACL 0.9% 1000 ML 1,000 ML IV SCH (21:39)
[2017-11-12] MEDS: HEPARIN SUB-Q SCH (21:43)
[2017-11-12 22:18] LABS: Bilirubin,Direct < 0.2 mg/dL (0-0.2)
[2017-11-13] MEDS ORDERED: VANCOMYCIN 2,000 MG in NACL 0.9% 500 ML 500 ML IV SCH
[2017-11-13] MEDS: ZOSYN/NS 3.375GM/50ML 3.375 GM/50 ML BAG IV SCH (04:22)
[2017-11-13 07:33] LABS: Hematocrit 20.8 % (35.5-45.6); Hemoglobin 6.6 gm/dl (11.8-15.2); Mean Corpuscular HGB Conc 32 % (32-34); Mean Corpuscular Hemoglobin 29 pg (28-32); Mean Corpuscular Volume 91 fl (84-94); Platelet Count 560 K/mm3 (140-440); Red Blood Count 2.29 M/mm3 (3.65-5.03); Red Cell Distribution Width 14.5 % (13.2-15.2)
[2017-11-13 07:52] LABS: Calcium 8.4 mg/dL (8.4-10.2)
[2017-11-13] MEDS ORDERED: NACL 0.9% 500 ML 500 ML IV NR (08:09)
[2017-11-13] MEDS ORDERED: K-DUR PO NR (08:17)
--- NOTE | 2017-11-13 08:18 | Progress Note ---
Assessment and Plan Assessment and plan: 42-year-old -[place] male with past medical history significant for uncontrolled diabetes mellitus, obesity, status post multiple toe amputation presented to the emergency department complaining of right knee swelling and pain Sepsis - leukocytosis, fever - Patient is on IV vancomycin and Zosyn, IV fluids - ID consulted Right knee cellulitis - Patient is on IV vancomycin and Zosyn - MRI of the right leg was done Large joint effusion is present. Medial meniscus is mildly displaced anteriorly, I suspect there is meniscal capsular separation possibly disruption of the medial meniscal anchor as well. No meniscal tear however is visualized. Mild tendinosis patellar tendon. Large amount of subcutaneous edema visualized medially greater than laterally. I cannot exclude cellulitis. - Orthopedics consulted for joint aspiration Obesity - patient is counseled about weight loss, diet and exercise Diabetes mellitus with hyperglycemia - Resumed his home dose of humolog 15 mg TID - Started on insulin 70/30 20 twice a day - Blood sugar is will controlled Acute kidney injury - IV fluids - Nephrology consult DVT prophylaxis - Lovenox Disposition - Continue inpatient care. History Interval history: Patient was seen and evaluated this morning, swelling and pain is getting better. Hospitalist Physical - Physical exam Narrative exam: Not in cardiopulmonary distress. The patient is obese. Vital signs as documented. Head exam is unremarkable. No scleral icterus . Neck is without jugular venous distension, thyromegaly, or carotid bruits. Lungs are clear to auscultation. Cardiac exam reveals regular rate and Rhythm. First and second heart sounds normal. No murmurs, rubs or gallops. Abdominal exam reveals normal bowel sounds, no masses, no organomegaly and no aortic enlargement. Extremities swelling, erythema and tenderness of the right leg extending from the right thigh to the bynum. COMPLIANCE SPECIALIST: Alert and oriented 3. No focal weakness. - Constitutional Vitals: Temp Pulse Resp BP Pulse Ox 99.3 F 86 18 129/69 100 11/12/17 22:59 11/12/17 22:59 11/13/17 00:57 11/12/17 22:59 11/12/17 22:59 General appearance: Present: mild distress Results - Labs CBC & Chem 7: 11/13/17 05:49 11/13/17 05:49 Labs: Laboratory Last Values WBC 26.2 K/mm3 (4.5-11.0) H 11/13/17 05:49 RBC 2.29 M/mm3 (3.65-5.03) L 11/13/17 05:49 Hgb 6.6 gm/dl (11.8-15.2) L 11/13/17 05:49 Hct 20.8 % (35.5-45.6) L 11/13/17 05:49 MCV 91 fl (84-94) 11/13/17 05:49 MCH 29 pg (28-32) 11/13/17 05:49 MCHC 32 % (32-34) 11/13/17 05:49 RDW 14.5 % (13.2-15.2) 11/13/17 05:49 Plt Count 560 K/mm3 (140-440) H 11/13/17 05:49 Add Manual Diff Complete 11/12/17 03:15 Total Counted 100 11/12/17 03:15 Seg Neuts % (Manual) 88.0 % (40.0-70.0) H 11/12/17 03:15 Band Neutrophils % 1.0 % 11/12/17 03:15 Lymphocytes % (Manual) 10.0 % (13.4-35.0) L 11/12/17 03:15 Reactive Lymphs % (Man) 0 % 11/12/17 03:15 Monocytes % (Manual) 1.0 % (0.0-7.3) 11/12/17 03:15 Eosinophils % (Manual) 0 % (0.0-4.3) 11/12/17 03:15 Basophils % (Manual) 0 % (0.0-1.8) 11/12/17 03:15 Metamyelocytes % 0 % 11/12/17 03:15 Myelocytes % 0 % 11/12/17 03:15 Promyelocytes % 0 % 11/12/17 03:15 Blast Cells % 0 % 11/12/17 03:15 Nucleated RBC % Not Reportable 11/12/17 03:15 Seg Neutrophils # Man 27.0 K/mm3 (1.8-7.7) H 11/12/17 03:15 Band Neutrophils # 0.3 K/mm3 11/12/17 03:15 Lymphocytes # (Manual) 3.1 K/mm3 (1.2-5.4) 11/12/17 03:15 Abs React Lymphs (Man) 0.0 K/mm3 11/12/17 03:15 Monocytes # (Manual) 0.3 K/mm3 (0.0-0.8) 11/12/17 03:15 Eosinophils # (Manual) 0.0 K/mm3 (0.0-0.4) 11/12/17 03:15 Basophils # (Manual) 0.0 K/mm3 (0.0-0.1) 11/12/17 03:15 Metamyelocytes # 0.0 K/mm3 11/12/17 03:15 Myelocytes # 0.0 K/mm3 11/12/17 03:15 Promyelocytes # 0.0 K/mm3 11/12/17 03:15 Blast Cells # 0.0 K/mm3 11/12/17 03:15 WBC Morphology Not Reportable 11/12/17 03:15 Hypersegmented Neuts Not Reportable 11/12/17 03:15 Hyposegmented Neuts Not Reportable 11/12/17 03:15 Hypogranular Neuts Not Reportable 11/12/17 03:15 Smudge Cells Not Reportable 11/12/17 03:15 Toxic Granulation Not Reportable 11/12/17 03:15 Toxic Vacuolation Not Reportable 11/12/17 03:15 Dohle Bodies Not Reportable 11/12/17 03:15 Pelger-Huet Anomaly Not Reportable 11/12/17 03:15 Romeo Rods Not Reportable 11/12/17 03:15 Platelet Estimate Appears increased 11/12/17 03:15 Clumped Platelets Not Reportable 11/12/17 03:15 Plt Clumps, EDTA Not Reportable 11/12/17 03:15 Large Platelets Few 11/12/17 03:15 Giant Platelets Few 11/12/17 03:15 Platelet Satelliting Not Reportable 11/12/17 03:15 Plt Morphology Comment Not Reportable 11/12/17 03:15 RBC Morphology Not Reportable 11/12/17 03:15 Dimorphic RBCs Not Reportable 11/12/17 03:15 Polychromasia Not Reportable 11/12/17 03:15 Hypochromasia 1+ 11/12/17 03:15 Poikilocytosis Not Reportable 11/12/17 03:15 Anisocytosis 1+ 11/12/17 03:15 Microcytosis Not Reportable 11/12/17 03:15 Macrocytosis Not Reportable 11/12/17 03:15 Spherocytes Not Reportable 11/12/17 03:15 Pappenheimer Bodies Not Reportable 11/12/17 03:15 Sickle Cells Not Reportable 11/12/17 03:15 Target Cells Not Reportable 11/12/17 03:15 Tear Drop Cells Not Reportable 11/12/17 03:15 Ovalocytes Not Reportable 11/12/17 03:15 Stomatocytes Few 11/12/17 03:15 Helmet Cells Not Reportable 11/12/17 03:15 Valenzuela-Mcgehee Bodies Not Reportable 11/12/17 03:15 [place] Rings Not Reportable 11/12/17 03:15 Canal [place] Cells Not Reportable 11/12/17 03:15 Bite Cells Not Reportable 11/12/17 03:15 Crenated Cell Not Reportable 11/12/17 03:15 Elliptocytes Not Reportable 11/12/17 03:15 Acanthocytes (Spur) Not Reportable 11/12/17 03:15 Rouleaux Not Reportable 11/12/17 03:15 Hemoglobin C Crystals Not Reportable 11/12/17 03:15 Schistocytes Not Reportable 11/12/17 03:15 Malaria parasites Not Reportable 11/12/17 03:15 ESR > 140.0 mm/Hr (0-20) 11/12/17 19:10 Roman Bodies Not Reportable 11/12/17 03:15 Hem Pathologist Commnt No 11/12/17 03:15 VBG pH 7.382 (7.320-7.420) 11/12/17 03:15 Sodium 137 mmol/L (137-145) 11/13/17 05:49 Potassium 3.5 mmol/L (3.6-5.0) L D 11/13/17 05:49 Chloride 100.5 mmol/L (98-107) 11/13/17 05:49 Carbon Dioxide 25 mmol/L (22-30) 11/13/17 05:49 Anion Gap 15 mmol/L 11/13/17 05:49 BUN 45 mg/dL (9-20) H 11/13/17 05:49 Creatinine 3.0 mg/dL (0.8-1.5) H 11/13/17 05:49 Estimated GFR 28 ml/min 11/13/17 05:49 BUN/Creatinine Ratio 15 % 11/13/17 05:49 Glucose 87 mg/dL (75-100) 11/13/17 05:49 POC Glucose 349 (70-105) H 11/12/17 12:03 Hemoglobin A1c 9.7 % (4-6) H 11/12/17 03:15 Lactic Acid 1.10 mmol/L (0.7-2.0) 11/12/17 08:34 Calcium 8.4 mg/dL (8.4-10.2) 11/13/17 05:49 Total Bilirubin 0.30 mg/dL (0.1-1.2) 11/12/17 19:10 Direct Bilirubin < 0.2 mg/dL (0-0.2) 11/12/17 19:10 Indirect Bilirubin 0.1 mg/dL 11/12/17 19:10 AST 15 units/L (5-40) 11/12/17 03:15 ALT 7 units/L (7-56) 11/12/17 03:15 Alkaline Phosphatase 140 units/L (35-129) H 11/12/17 03:15 Lactate Dehydrogenase 425 units/L (91-180) H 11/12/17 19:10 Total Creatine Kinase 63 units/L (55-170) 11/12/17 03:15 Troponin T 0.106 ng/mL (0.00-0.029) H* 11/12/17 03:15 Total Protein 8.1 g/dL (6.3-8.2) 11/12/17 03:15 Albumin 1.8 g/dL (3.9-5) L 11/12/17 03:15 Albumin/Globulin Ratio 0.3 % 11/12/17 03:15 Triglycerides 95 mg/dL (2-149) 11/12/17 03:15 Cholesterol 102 mg/dL (50-199) 11/12/17 03:15 LDL Cholesterol Direct 47 mg/dL (50-130) L 11/12/17 03:15 HDL Cholesterol 30 mg/dL (40-59) L 11/12/17 03:15 Cholesterol/HDL Ratio 3.40 % 11/12/17 03:15 Vitamin B12 1267 pg/mL (211-911) H 11/12/17 19:10 Urine Color Yellow (Yellow) 11/12/17 Unknown Urine Turbidity Clear (Clear) 11/12/17 Unknown Urine pH 5.0 (5.0-7.0) 11/12/17 Unknown Ur Specific [place] 1.022 (1.003-1.030) 11/12/17 Unknown Urine Protein >500 mg/dL (Negative) 11/12/17 Unknown Urine Glucose (UA) >=500 mg/dL (Negative) 11/12/17 Unknown Urine Ketones Tr mg/dL (Negative) 11/12/17 Unknown Urine Blood Mod (Negative) 11/12/17 Unknown Urine Nitrite Neg (Negative) 11/12/17 Unknown Urine Bilirubin Neg (Negative) 11/12/17 Unknown Urine Urobilinogen < 2.0 mg/dL (<2.0) 11/12/17 Unknown Ur Leukocyte Esterase Neg (Negative) 11/12/17 Unknown Urine WBC (Auto) 14.0 /HPF (0.0-6.0) H 11/12/17 Unknown Urine RBC (Auto) 16.0 /HPF (0.0-6.0) 11/12/17 Unknown U Epithel Cells (Auto) < 1.0 /HPF (0-13.0) 11/12/17 Unknown Urine Bacteria (Auto) 1+ /HPF (Negative) 11/12/17 03:37 Hyaline Casts 1 /LPF 11/12/17 Unknown Urine Mucus Few /HPF 11/12/17 Unknown Direct Antiglob Test Negative 11/12/17 19:10 MELINA, Poly Interpret Negative 11/12/17 19:10
[2017-11-13] MEDS: HumuLIN R SUB-Q SCH ×4 (08:41→23:39)
[2017-11-13] MEDS: HEPARIN SUB-Q SCH ×2 (10:21→21:22)
[2017-11-13] MEDS: NACL 0.9% 1000 ML 1,000 ML IV SCH (10:50)
[2017-11-13] MEDS ORDERED: TYLENOL PO ONE (11:00)
[2017-11-13 11:41] LABS: Band Neutrophils # (Manual) 0.4 K/mm3; Basophils % (Manual) 0 % (0.0-1.8); Eosinophils % (Manual) 0.5 % (0.0-4.3); Total Cells Counted 200
[2017-11-13 11:42] LABS: Anisocytosis 1+; Hypochromasia 1+; Ovalocytes Few
--- NOTE | 2017-11-13 13:53 | Consultation ---
History of Present Illness - HPI Consult date: 11/13/17 Consult reason: joint pain History of present illness: 42 y/o male with c/o right knee pain and swelling, hx of DM admitted for cellulitis ...asked to see and aspirate knee joint...6cc straw colored fluid aspirated from knee joint and given to nurse for C/S... Past History Past Medical History: diabetes Past Surgical History: Other (Amputation of left great and 2nd toe, Right great and 5th toe) Social history: full code. denies: smoking, alcohol abuse, prescription drug abuse, IV drug use Family history: diabetes (mother), hypertension (father) Medications and Allergies Allergies Allergy/AdvReac Type Severity Reaction Status Date / Time No Known Allergies Allergy Unverified 05/06/13 07:08 Home Medications Medication Instructions Recorded Confirmed Last Taken Type metFORMIN [Glucophage] 500 mg PO BID 05/06/13 05/06/13 Unknown History Active Meds: Active Medications Dextrose (D50w (25gm) Syringe) 50 ml IV PRN PRN PRN Reason: Hypoglycemia Heparin Sodium (Porcine) (Heparin) 5,000 unit SUB-Q Q12HR COUNT INCLUDES THE [facility] Last Admin: 11/12/17 21:43 Dose: 5,000 unit Sodium Chloride (Nacl 0.9% 1000 Ml) 1,000 mls @ 125 mls/hr IV DIRECT DOTTIE Last Admin: 11/13/17 10:50 Dose: 125 mls/hr Sodium Chloride (Nacl 0.9% 1000 Ml) 1,000 mls @ 100 mls/hr IV DIRECT DOTTIE Last Admin: 11/12/17 21:39 Dose: 100 mls/hr Piperacillin Sod/Tazobactam Sod (Zosyn/Ns 4.5gm/100ml) 4.5 gm in 100 mls @ 200 mls/hr IV Q8HR COUNT INCLUDES THE [facility] Insulin Human Isoph/Insulin Regular (Humulin 70/30) 20 unit SUB-Q BID DOTTIE Last Admin: 11/13/17 10:45 Dose: 20 unit Insulin Human Regular (Humulin R) 15 units SUB-Q ACHS COUNT INCLUDES THE [facility] Last Admin: 11/13/17 08:41 Dose: Not Given Ondansetron HCl (Zofran) 4 mg IV Q8H PRN PRN Reason: N/V unrelieved by Reglan Oxycodone/Acetaminophen (Percocet 5/325) 2 tab PO Q6H PRN PRN Reason: Pain, Moderate (4-6) Vancomycin HCl (Vancomycin Pharmacy To Dose) 1 each IV PKCONSULT DOTTIE; Protocol
--- NOTE | 2017-11-13 14:03 | Consultation ---
History of Present Illness - Reason for Consult Consult date: 11/13/17 acute renal failure, chronic renal failure - History of Present Illness patient with h/o DM who was admitted to [facility] yesterday for worsening swelling and pain of right knee, he was started IN antibiotics for possible septic arthritis and ortho consult was requested for knee aspiration. kidney function was not to be abnormal and renal consult was requested Past History Past Medical History: diabetes Past Surgical History: Other (Amputation of left great and 2nd toe, Right great and 5th toe) Social history: full code. denies: smoking, alcohol abuse, prescription drug abuse, IV drug use Family history: diabetes (mother), hypertension (father) Medications and Allergies Allergies Allergy/AdvReac Type Severity Reaction Status Date / Time No Known Allergies Allergy Unverified 05/06/13 07:08 Home Medications Medication Instructions Recorded Confirmed Last Taken Type metFORMIN [Glucophage] 500 mg PO BID 05/06/13 05/06/13 Unknown History Active Meds: Active Medications Dextrose (D50w (25gm) Syringe) 50 ml IV PRN PRN PRN Reason: Hypoglycemia Heparin Sodium (Porcine) (Heparin) 5,000 unit SUB-Q Q12HR [facility] Last Admin: 11/12/17 21:43 Dose: 5,000 unit Sodium Chloride (Nacl 0.9% 1000 Ml) 1,000 mls @ 125 mls/hr IV DIRECT DOTTIE Last Admin: 11/13/17 10:50 Dose: 125 mls/hr Sodium Chloride (Nacl 0.9% 1000 Ml) 1,000 mls @ 100 mls/hr IV DIRECT DOTTIE Last Admin: 11/12/17 21:39 Dose: 100 mls/hr Piperacillin Sod/Tazobactam Sod (Zosyn/Ns 4.5gm/100ml) 4.5 gm in 100 mls @ 200 mls/hr IV Q8HR [facility] Insulin Human Isoph/Insulin Regular (Humulin 70/30) 20 unit SUB-Q BID DOTTIE Last Admin: 11/13/17 10:45 Dose: 20 unit Insulin Human Regular (Humulin R) 15 units SUB-Q ACHS DOTTIE Last Admin: 11/13/17 08:41 Dose: Not Given Ondansetron HCl (Zofran) 4 mg IV Q8H PRN PRN Reason: N/V unrelieved by Reglan Oxycodone/Acetaminophen (Percocet 5/325) 2 tab PO Q6H PRN PRN Reason: Pain, Moderate (4-6) Vancomycin HCl (Vancomycin Pharmacy To Dose) 1 each IV PKCONSULT DOTTIE; Protocol Review of Systems All systems: negative (R knee pain) Exam - Vital Signs Vital signs: Vital Signs Temp Pulse Resp BP Pulse Ox 98.5 F 110 H 18 126/87 99 11/12/17 02:22 11/12/17 02:22 11/12/17 02:22 11/12/17 02:11/12/17 02:22 - General Appearance General appearance: well-developed, well-nourished, appears stated age EENT: ATNC, PERRL, mucous membranes moist Neck: Present: neck supple Respiratory: Clear to Ascultation Heart: regular, S1S2 Gastrointestinal: Present: normoactive bowel sounds. 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, Cr in 2012 was 1.8, possibel progression of CKD - no signs of volume overload, will cnt IVF - noted have proteinuria, very likely due to DM, but will order secondary GN and vasculitia work up (HCV, HBV, HIV, SPEP, ANCA, NATHAN, C3,C4 and anti GBM) - will check urine lytes and protein - will check renal US - no indication for [employer] - renally dose meds - strict I&O - daily weights Sepsis Right knee cellulites - s/p R knee aspiration, cultures and cell count are pending - on vanc and zosyn - ID consult is pending Anemia - being transfused today - could be due to CKD DM type II - off metformin now - per primary team please call me if you have questions. cell phone [phone]
[2017-11-13] MEDS: ZOSYN/NS 4.5GM/100ML 4.5 GM/100 ML VIAL IV SCH ×2 (16:03→21:21)
[2017-11-13 17:04] LABS: Smear for Schistocytes None Seen
--- NOTE | 2017-11-13 17:10 | Ultrasound Report ---
FINAL REPORT EXAM: US RENAL BILAT HISTORY: renal failure TECHNIQUE: Retroperitoneal ultrasound PRIORS: None. FINDINGS: The right kidney measures 15.2 x 5.3 x 5.7 centimeters The left kidney measures 15.5 x 6.6 x 5.1 centimeters There is no evidence of hydronephrosis or nephrolithiasis. Renal parenchyma is within normal limits. IMPRESSION: No evidence of obstructive uropathy.
[2017-11-13] MEDS: PERCOCET 5/325 PO PRN (21:19)
--- NOTE | 2017-11-13 21:40 | Progress Note ---
Assessment and Plan - Patient Problems (1) Acute renal injury Current Visit: Yes Status: Acute Plan to address problem: probably due to dehydration, due ti N/V.. hydrate, and monitor labs. (2) Cellulitis Current Visit: Yes Status: Acute Plan to address problem: ABX therapy. (3) Hyperglycemia Current Visit: Yes Status: Acute Plan to address problem: Better control of BG. (4) Anemia Current Visit: No Status: Chronic Plan to address problem: see w/up, continue to monitor labs. 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 (6) Leukocytosis Current Visit: No Status: Chronic Plan to address problem: due to uti/cellulites. (7) Osteomyelitis of left foot Current Visit: No Status: Chronic Plan to address problem: once established/confirmed, prolonged ABX. Subjective Date of service: 11/13/17 Interval history: Patient seen/examined, resting in bed, vss, afebrile, family at the bed side.Records reviewed, case d/w patient. Hgb dropped, and replacement transfusion given. Patient s/p small right knee fluid asp. Objective - Constitutional Vitals: Vital Signs - 12hr 11/13/17 11/13/17 11/13/17 12:12 12:23 12:27 Temperature 99.4 F 98.9 F 98.8 F Pulse Rate 91 H 93 H 95 H Respiratory 16 16 16 Rate Blood Pressure 129/62 131/66 118/61 O2 Sat by Pulse 97 Oximetry 11/13/17 11/13/17 11/13/17 12:57 17:45 19:32 Temperature 98.8 F 99.1 F 101.9 F H Pulse Rate 89 94 H 93 H Respiratory 16 20 19 Rate Blood Pressure 145/71 144/65 163/75 O2 Sat by Pulse 92 96 97 Oximetry 11/13/17 21:19 Temperature Pulse Rate Respiratory 18 Rate Blood Pressure O2 Sat by Pulse Oximetry General appearance: Present: mild distress, well-nourished - EENT Eyes: PERRL, EOM intact ENT: hearing intact, clear oral mucosa Ears: bilateral: normal - Neck Neck: supple, normal ROM - Respiratory Respiratory effort: normal Respiratory: bilateral: CTA - Breasts Breasts: deferred - Cardiovascular Rhythm: regular Heart Sounds: Present: S1 & S2. Absent: gallop, rub Extremities: pulses intact, No edema, normal color, Full ROM - Gastrointestinal General gastrointestinal: Present: soft, non-tender, non-distended, normal bowel sounds Rectal Exam: deferred - Genitourinary Male genitourinary: deferred - Integumentary Integumentary: clear, warm, dry - Musculoskeletal Musculoskeletal: 1, strength equal bilaterally - Neurologic Neurologic: moves all extremities - Psychiatric Psychiatric: memory intact, appropriate mood/affect, intact judgment & insight - Labs CBC & Chem 7: 11/13/17 05:49 11/13/17 05:49 Labs: Abnormal lab results 11/12/17 11/12/17 11/13/17 Range/Units 17:01 21:07 05:49 WBC 26.2 H (4.5-11.0) K/mm3 RBC 2.29 L (3.65-5.03) M/mm3 Hgb 6.6 L (11.8-15.2) gm/dl Hct 20.8 L (35.5-45.6) % Plt Count 560 H (140-440) K/mm3 Seg Neuts % (Manual) 76.5 H (40.0-70.0) % Seg Neutrophils # Man 20.0 H (1.8-7.7) K/mm3 Monocytes # (Manual) 1.8 H (0.0-0.8) K/mm3 Potassium (3.6-5.0) mmol/L BUN (9-20) mg/dL Creatinine (0.8-1.5) mg/dL POC Glucose 291 H 184 H (70-105) Lactate Dehydrogenase (91-180) units/L Crossmatch 11/13/17 11/13/17 11/13/17 Range/Units 05:49 06:37 08:20 WBC (4.5-11.0) K/mm3 RBC (3.65-5.03) M/mm3 Hgb (11.8-15.2) gm/dl Hct (35.5-45.6) % Plt Count (140-440) K/mm3 Seg Neuts % (Manual) (40.0-70.0) % Seg Neutrophils # Man (1.8-7.7) K/mm3 Monocytes # (Manual) (0.0-0.8) K/mm3 Potassium 3.5 L D (3.6-5.0) mmol/L BUN 45 H (9-20) mg/dL Creatinine 3.0 H (0.8-1.5) mg/dL POC Glucose 129 H (70-105) Lactate Dehydrogenase (91-180) units/L Crossmatch See Detail 11/13/17 11/13/17 11/13/17 Range/Units 11:31 15:22 17:55 WBC (4.5-11.0) K/mm3 RBC (3.65-5.03) M/mm3 Hgb (11.8-15.2) gm/dl Hct (35.5-45.6) % Plt Count (140-440) K/mm3 Seg Neuts % (Manual) (40.0-70.0) % Seg Neutrophils # Man (1.8-7.7) K/mm3 Monocytes # (Manual) (0.0-0.8) K/mm3 Potassium (3.6-5.0) mmol/L BUN (9-20) mg/dL Creatinine (0.8-1.5) mg/dL POC Glucose 154 H 143 H (70-105) Lactate Dehydrogenase 342 H (91-180) units/L Crossmatch 11/13/17 Range/Units 21:07 WBC (4.5-11.0) K/mm3 RBC (3.65-5.03) M/mm3 Hgb (11.8-15.2) gm/dl Hct (35.5-45.6) % Plt Count (140-440) K/mm3 Seg Neuts % (Manual) (40.0-70.0) % Seg Neutrophils # Man (1.8-7.7) K/mm3 Monocytes # (Manual) (0.0-0.8) K/mm3 Potassium (3.6-5.0) mmol/L BUN (9-20) mg/dL Creatinine (0.8-1.5) mg/dL POC Glucose 124 H (70-105) Lactate Dehydrogenase (91-180) units/L Crossmatch
[2017-11-14] MEDS: ZOSYN/NS 4.5GM/100ML 4.5 GM/100 ML VIAL IV SCH (06:13)
[2017-11-14 07:18] LABS: Bacteria,Urine 1+ /HPF (Negative); Bilirubin,Urine NEG (Negative); Blood,Urine SM (Negative); Color,Urine Yellow (Yellow); Mucus,Urine FEW /HPF; Urobilinogen,Urine < 2.0 mg/dL (<2.0)
[2017-11-14 07:48] LABS: Creatinine,Urine 112.3 mg/dL (0.1-20.0)
[2017-11-14 08:01] LABS: Protein/Creatinine Ratio,Urine 4.47
[2017-11-14 08:11] LABS: Creatinine,Urine 109.8 mg/dL (0.1-20.0)
[2017-11-14] MEDS: HumuLIN R SUB-Q SCH ×4 (08:39→23:38)
[2017-11-14 10:12] LABS: Hematocrit 26.3 % (35.5-45.6); Mean Corpuscular HGB Conc 31 % (32-34); Mean Corpuscular Hemoglobin 29 pg (28-32); Mean Corpuscular Volume 96 fl (84-94); Platelet Count 588 K/mm3 (140-440); Red Blood Count 2.74 M/mm3 (3.65-5.03); Red Cell Distribution Width 16.6 % (13.2-15.2)
[2017-11-14 10:28] LABS: Calcium 8.3 mg/dL (8.4-10.2)
[2017-11-14] MEDS: HEPARIN SUB-Q SCH ×2 (10:56→23:36)
[2017-11-14 11:01] LABS: Band Neutrophils # (Manual) 0.3 K/mm3; Basophils % (Manual) 0 % (0.0-1.8); Hypochromasia 2+; Monocytes % (Manual) 3.5 % (0.0-7.3); Total Cells Counted 200
[2017-11-14 11:02] LABS: Platelet Estimate Consistent w Auto
--- NOTE | 2017-11-14 11:03 | Consultation ---
History of Present Illness - Reason for Consult Consult date: 11/13/17 right knee infection Requesting physician: ARIA DURÁN - History of Present Illness LATE ENTRY- patient seen on 11/13/17 42 y/o male with history of diabetes, diabetic foot ulcer s/p amputation of multiple toes; admitted on 11/12/17 due to a week-history of right knee swelling and pain. Pain is 10/10. Denies any injury or falls. Denies fever ,nausea, vomiting. He also was c/o watery diarrhea for the last 6 days. Denied abdominal pain. Denies sick contact. In the ED, temp 100 --> 101.2, HR 110, R 18, BP 126/87. WBC 30.7. Hg 8. Plat 671. Crat 2.3. A1C 9.7. Flucose 404. UA 14 wbc no LE. HIV neg. MRI showed large joint effusion ? disrruption of medial meniscus. Micro: Blood cx: 11/12 ngtd Urine culture: 11/12 neg Synovial fluid: Many PMN, no organism Past History Past Medical History: diabetes Past Surgical History: Other (Amputation of left great and 2nd toe, Right great and 5th toe) Social history: full code. denies: smoking, alcohol abuse, prescription drug abuse, IV drug use Family history: diabetes (mother), hypertension (father) Medications and Allergies Allergies Allergy/AdvReac Type Severity Reaction Status Date / Time No Known Allergies Allergy Unverified 05/06/13 07:08 Home Medications Medication Instructions Recorded Confirmed Last Taken Type metFORMIN [Glucophage] 500 mg PO BID 05/06/13 05/06/13 Unknown History Active Meds: Active Medications Dextrose (D50w (25gm) Syringe) 50 ml IV PRN PRN PRN Reason: Hypoglycemia Heparin Sodium (Porcine) (Heparin) 5,000 unit SUB-Q Q12HR DOTTIE Last Admin: 11/14/17 10:56 Dose: 5,000 unit Sodium Chloride (Nacl 0.9% 1000 Ml) 1,000 mls @ 125 mls/hr IV DIRECT DOTTIE Last Admin: 11/13/17 10:50 Dose: 125 mls/hr Sodium Chloride (Nacl 0.9% 1000 Ml) 1,000 mls @ 100 mls/hr IV DIRECT DOTTIE Last Admin: 11/12/17 21:39 Dose: 100 mls/hr Piperacillin Sod/Tazobactam Sod (Zosyn/Ns 4.5gm/100ml) 4.5 gm in 100 mls @ 200 mls/hr IV Q8HR [facility] Last Admin: 11/14/17 06:13 Dose: 200 mls/hr Insulin Human Isoph/Insulin Regular (Humulin 70/30) 20 unit SUB-Q BID [facility] Last Admin: 11/14/17 10:52 Dose: 20 unit Insulin Human Regular (Humulin R) 15 units SUB-Q ACHS [facility] Last Admin: 11/14/17 08:39 Dose: Not Given Ondansetron HCl (Zofran) 4 mg IV Q8H PRN PRN Reason: N/V unrelieved by Reglan Oxycodone/Acetaminophen (Percocet 5/325) 2 tab PO Q6H PRN PRN Reason: Pain, Moderate (4-6) Last Admin: 11/13/17 21:19 Dose: 2 tab Vancomycin HCl (Vancomycin Pharmacy To Dose) 1 each IV PKCONSULT [facility]; Protocol Review of Systems All systems: negative (as per HPI rest negative) Physical Examination - Physical Exam Narrative exam: Alert in NAD Clear OP Lungs CTA yuriy CV RRR Abd soft NT ND Ext right knee swelling, heat and mild tenderness, no erythema. Multiple missing yuriy toes. Left fore foot deformity - Constitutional Vitals: Vital Signs Temp Pulse Resp BP Pulse Ox 100.0 F H 94 H 20 162/87 96 11/14/17 08:22 11/14/17 08:22 11/14/17 08:22 11/14/17 08:22 11/14/17 08:22 Temperature -Last 24 Hours Temperature 100.0 F Temperature 98.2 F Temperature 99.2 F Temperature 101.9 F Temperature 99.1 F Temperature 98.8 F Temperature 98.8 F Temperature 98.9 F Temperature 99.4 F Results - Labs CBC & Chem 7: 11/14/17 09:30 11/14/17 09:30 Labs: Abnormal lab results 11/13/17 11/13/17 11/13/17 Range/Units 05:49 08:20 11:31 WBC (4.5-11.0) K/mm3 RBC (3.65-5.03) M/mm3 Hgb (11.8-15.2) gm/dl Hct (35.5-45.6) % MCV (84-94) fl MCHC (32-34) % RDW (13.2-15.2) % Plt Count (140-440) K/mm3 Seg Neuts % (Manual) 76.5 H (40.0-70.0) % Seg Neutrophils # Man 20.0 H (1.8-7.7) K/mm3 Monocytes # (Manual) 1.8 H (0.0-0.8) K/mm3 Carbon Dioxide (22-30) mmol/L BUN (9-20) mg/dL Creatinine (0.8-1.5) mg/dL Glucose (75-100) mg/dL POC Glucose 154 H (70-105) Calcium (8.4-10.2) mg/dL Lactate Dehydrogenase (91-180) units/L Urine WBC (Auto) (0.0-6.0) /HPF Urine Creatinine (0.1-20.0) mg/dL Urine Total Protein (5-11.8) mg/dL Crossmatch See Detail 11/13/17 11/13/17 11/13/17 Range/Units 15:22 17:55 21:07 WBC (4.5-11.0) K/mm3 RBC (3.65-5.03) M/mm3 Hgb (11.8-15.2) gm/dl Hct (35.5-45.6) % MCV (84-94) fl MCHC (32-34) % RDW (13.2-15.2) % Plt Count (140-440) K/mm3 Seg Neuts % (Manual) (40.0-70.0) % Seg Neutrophils # Man (1.8-7.7) K/mm3 Monocytes # (Manual) (0.0-0.8) K/mm3 Carbon Dioxide (22-30) mmol/L BUN (9-20) mg/dL Creatinine (0.8-1.5) mg/dL Glucose (75-100) mg/dL POC Glucose 143 H 124 H (70-105) Calcium (8.4-10.2) mg/dL Lactate Dehydrogenase 342 H (91-180) units/L Urine WBC (Auto) (0.0-6.0) /HPF Urine Creatinine (0.1-20.0) mg/dL Urine Total Protein (5-11.8) mg/dL Crossmatch 11/14/17 11/14/17 11/14/17 Range/Units 06:31 07:03 07:03 WBC (4.5-11.0) K/mm3 RBC (3.65-5.03) M/mm3 Hgb (11.8-15.2) gm/dl Hct (35.5-45.6) % MCV (84-94) fl MCHC (32-34) % RDW (13.2-15.2) % Plt Count (140-440) K/mm3 Seg Neuts % (Manual) (40.0-70.0) % Seg Neutrophils # Man (1.8-7.7) K/mm3 Monocytes # (Manual) (0.0-0.8) K/mm3 Carbon Dioxide (22-30) mmol/L BUN (9-20) mg/dL Creatinine (0.8-1.5) mg/dL Glucose (75-100) mg/dL POC Glucose 121 H (70-105) Calcium (8.4-10.2) mg/dL Lactate Dehydrogenase (91-180) units/L Urine WBC (Auto) 8.0 H (0.0-6.0) /HPF Urine Creatinine 109.8 H (0.1-20.0) mg/dL Urine Total Protein (5-11.8) mg/dL Crossmatch 11/14/17 11/14/17 11/14/17 Range/Units 07:03 09:30 09:30 WBC 26.6 H (4.5-11.0) K/mm3 RBC 2.74 L (3.65-5.03) M/mm3 Hgb 8.0 L (11.8-15.2) gm/dl Hct 26.3 L (35.5-45.6) % MCV 96 H (84-94) fl MCHC 31 L (32-34) % RDW 16.6 H (13.2-15.2) % Plt Count 588 H (140-440) K/mm3 Seg Neuts % (Manual) (40.0-70.0) % Seg Neutrophils # Man (1.8-7.7) K/mm3 Monocytes # (Manual) (0.0-0.8) K/mm3 Carbon Dioxide 21 L (22-30) mmol/L BUN 43 H (9-20) mg/dL Creatinine 2.9 H (0.8-1.5) mg/dL Glucose 127 H (75-100) mg/dL POC Glucose (70-105) Calcium 8.3 L (8.4-10.2) mg/dL Lactate Dehydrogenase (91-180) units/L Urine WBC (Auto) (0.0-6.0) /HPF Urine Creatinine 112.3 H (0.1-20.0) mg/dL Urine Total Protein 502 H (5-11.8) mg/dL Crossmatch Assessment and Plan Assessment: 1) Sepsis: present on admission with fever, tachycardia and leukocytosis; likely due to right knee arthritis 2) Right knee arthritis: Septic vs. reactive (gout/pseudogout/other inflammatory arthritis) -MRI showed large effusion -S/P joint aspiration fluid with many PMNs and no organism 3) DM-uncontrolled 4) Anemia 5) BLAS 6) Recent diarrhea Plan: -f/u synovial fluid crystals and cell count and differential -f/u synovial fluid cultures -check uric acid, CCP, CRP -stop zosynh -continue vancomycin -start ceftriaxone -will need to see WBC count to determine if he needs antibiotics Thanks for consultation Perla No MD
[2017-11-14] MEDS ORDERED: ROCEPHIN/NS 2 GM/100 ML 2 GM/100 ML BAG IV SCH (12:00)
--- NOTE | 2017-11-14 14:20 | Progress Note ---
Assessment and Plan Acute on chronic kidney disease: -Renal function reviewed, SCr level was 2.9 today, yesterday's SCr level was 3.0 -CKD possibly secondary to Diabetic nephropathy, review of labs in 2012 showed SCr level between 1.5-2.0 -Calculated protein/cr ratio > 4 g, possibly secondary to diabetic nephropathy, however, will obtain secondary GN and vasculitis work up -HBV, HCV, HIV - negative -ANCA, NATHAN, C3, C4, Anti-GBM pending -Renal US showed no hydronephrosis -On 0.9% NS infusion at 100 ml/hr -Renally dose meds -Strict intake and output -[place] Catheter: No -Renal plan d/w Dr Lamb -Continue supportive therapy Sepsis: Possible Right Knee cellulitis: -S/p Right knee aspiration, cultures and cell count are pending -Uric acid level was 9.3 today -On rocephin -MRI showed large joint effusion, questionable disruption of medial meniscus. -ID and Ortho consulted, f/u recs Anemia: -Possibly secondary to CKD -S/p transfusion of 1 unit of PRBCs on 11/13/17 -Monitor for need for blood transfusion Diabetes Mellitus Type 2 insulin dependent: -On insulin -As per primary team Subjective Date of service: 11/14/17 Interval history: Pt reports feeling better today, no acute distress. No family at bedside Objective - Vital Signs Vital signs: Vital Signs - 12hr 11/14/17 11/14/17 04:15 08:22 Temperature 98.2 F 100.0 F H Pulse Rate 82 94 H Respiratory 18 20 Rate Blood Pressure 158/86 162/87 O2 Sat by Pulse 93 96 Oximetry - General Appearance General appearance: well-developed (no acute distress) EENT: ATNC Neck: no JVD Respiratory: Present: Clear to Ascultation Cardiology: regular, S1S2 Gastrointestinal: normoactive bowel sounds, no tenderness Integumentary: other (left foot wound with dressing in place) Neurologic: alert and oriented x3 Musculoskeletal: joint swelling (right knee swelling) Psychiatric: mood/affect appropriate, cooperative - Lab 11/14/17 09:30 11/14/17 09:30 Most recent lab results Calcium 8.3 mg/dL (8.4-10.2) L 11/14/17 09:30 Phosphorus 4.50 mg/dL (2.5-4.5) 11/14/17 09:30 Urine Creatinine 109.8 mg/dL (0.1-20.0) H 11/14/17 07:03 Urine Sodium 33 mmol/L 11/14/17 07:03 Urine Total Protein 502 mg/dL (5-11.8) H 11/14/17 07:03
--- NOTE | 2017-11-14 14:28 | Progress Note ---
Assessment and Plan Assessment and plan: 42-year-old -[place] male with past medical history significant for uncontrolled diabetes mellitus, obesity, status post multiple toe amputation presented to the emergency department complaining of right knee swelling and pain Sepsis - leukocytosis - Patient is on IV vancomycin and Zosyn - ID consulted Right knee cellulitis - Patient is on IV vancomycin and Zosyn - MRI of the right leg was done Large joint effusion is present. Medial meniscus is mildly displaced anteriorly, I suspect there is meniscal capsular separation possibly disruption of the medial meniscal anchor as well. No meniscal tear however is visualized. Mild tendinosis patellar tendon. Large amount of subcutaneous edema visualized medially greater than laterally. I cannot exclude cellulitis. - Orthopedics consulted for joint aspiration 6ml Obesity - patient is counseled about weight loss, diet and exercise Diabetes mellitus with hyperglycemia - Resumed his home dose of humolog 15 mg TID - Started on insulin 70/30 20 twice a day - Blood sugar is will controlled Acute kidney injury - IV fluids - Nephrology consult Severe Anemia - Hgb was 6.6, and post transfusion hgb is 8 DVT prophylaxis - Lovenox Disposition - Continue inpatient care. History Interval history: Patient was seen and evaluated this morning, swelling and pain is getting better. Management plan was discussed with the patient and his who was in the room with him. Hospitalist Physical - Physical exam Narrative exam: Not in cardiopulmonary distress. The patient is obese. Vital signs as documented. Head exam is unremarkable. No scleral icterus . Neck is without jugular venous distension, thyromegaly, or carotid bruits. Lungs are clear to auscultation. Cardiac exam reveals regular rate and Rhythm. First and second heart sounds normal. No murmurs, rubs or gallops. Abdominal exam reveals normal bowel sounds, no masses, no organomegaly and no aortic enlargement. Extremities swelling, erythema and tenderness of the right leg extending from the right thigh to the bynum. FLORIST DESIGNER: Alert and oriented 3. No focal weakness. - Constitutional Vitals: Temp Pulse Resp BP Pulse Ox 100.0 F H 94 H 20 162/87 96 11/14/17 08:22 11/14/17 08:22 11/14/17 08:22 11/14/17 08:22 11/14/17 08:22 General appearance: Present: mild distress, well-nourished Results - Labs CBC & Chem 7: 11/14/17 09:30 11/14/17 09:30 Labs: Laboratory Last Values WBC 26.6 K/mm3 (4.5-11.0) H 11/14/17 09:30 RBC 2.74 M/mm3 (3.65-5.03) L 11/14/17 09:30 Hgb 8.0 gm/dl (11.8-15.2) L 11/14/17 09:30 Hct 26.3 % (35.5-45.6) L 11/14/17 09:30 MCV 96 fl (84-94) H 11/14/17 09:30 MCH 29 pg (28-32) 11/14/17 09:30 MCHC 31 % (32-34) L 11/14/17 09:30 RDW 16.6 % (13.2-15.2) H 11/14/17 09:30 Plt Count 588 K/mm3 (140-440) H 11/14/17 09:30 Lymph % (Auto) Counter Roller 11/14/17 09:30 [place] % (Auto) Counter Roller 11/14/17 09:30 Eos % (Auto) Counter Roller 11/14/17 09:30 Baso % (Auto) Counter Roller 11/14/17 09:30 Lymph # Counter Roller 11/14/17 09:30 [place] # Counter Roller 11/14/17 09:30 Eos # Counter Roller 11/14/17 09:30 Baso # Counter Roller 11/14/17 09:30 Add Manual Diff Complete 11/14/17 09:30 Total Counted 200 11/14/17 09:30 Seg Neutrophils % Counter Roller 11/14/17 09:30 Seg Neuts % (Manual) 90.5 % (40.0-70.0) H 11/14/17 09:30 Band Neutrophils % 1.0 % 11/14/17 09:30 Lymphocytes % (Manual) 3.0 % (13.4-35.0) L 11/14/17 09:30 Reactive Lymphs % (Man) 0 % 11/14/17 09:30 Monocytes % (Manual) 3.5 % (0.0-7.3) 11/14/17 09:30 Eosinophils % (Manual) 2.0 % (0.0-4.3) 11/14/17 09:30 Basophils % (Manual) 0 % (0.0-1.8) 11/14/17 09:30 Metamyelocytes % 0 % 11/14/17 09:30 Myelocytes % 0 % 11/14/17 09:30 Promyelocytes % 0 % 11/14/17 09:30 Blast Cells % 0 % 11/14/17 09:30 Nucleated RBC % Not Reportable 11/14/17 09:30 Seg Neutrophils # Counter Roller 11/14/17 09:30 Seg Neutrophils # Man 24.1 K/mm3 (1.8-7.7) H 11/14/17 09:30 Band Neutrophils # 0.3 K/mm3 11/14/17 09:30 Lymphocytes # (Manual) 0.8 K/mm3 (1.2-5.4) L 11/14/17 09:30 Abs React Lymphs (Man) 0.0 K/mm3 11/14/17 09:30 Monocytes # (Manual) 0.9 K/mm3 (0.0-0.8) H 11/14/17 09:30 Eosinophils # (Manual) 0.5 K/mm3 (0.0-0.4) H 11/14/17 09:30 Basophils # (Manual) 0.0 K/mm3 (0.0-0.1) 11/14/17 09:30 Metamyelocytes # 0.0 K/mm3 11/14/17 09:30 Myelocytes # 0.0 K/mm3 11/14/17 09:30 Promyelocytes # 0.0 K/mm3 11/14/17 09:30 Blast Cells # 0.0 K/mm3 11/14/17 09:30 WBC Morphology Not Reportable 11/14/17 09:30 Hypersegmented Neuts Not Reportable 11/14/17 09:30 Hyposegmented Neuts Not Reportable 11/14/17 09:30 Hypogranular Neuts Not Reportable 11/14/17 09:30 Smudge Cells Not Reportable 11/14/17 09:30 Toxic Granulation Not Reportable 11/14/17 09:30 Toxic Vacuolation Not Reportable 11/14/17 09:30 Dohle Bodies Not Reportable 11/14/17 09:30 Pelger-Huet Anomaly Not Reportable 11/14/17 09:30 Romeo Rods Not Reportable 11/14/17 09:30 Platelet Estimate Consistent w auto 11/14/17 09:30 Clumped Platelets Not Reportable 11/14/17 09:30 Plt Clumps, EDTA Not Reportable 11/14/17 09:30 Large Platelets Not Reportable 11/14/17 09:30 Giant Platelets Not Reportable 11/14/17 09:30 Platelet Satelliting Not Reportable 11/14/17 09:30 Plt Morphology Comment Not Reportable 11/14/17 09:30 RBC Morphology Not Reportable 11/14/17 09:30 Dimorphic RBCs Not Reportable 11/14/17 09:30 Polychromasia Not Reportable 11/14/17 09:30 Hypochromasia 2+ 11/14/17 09:30 Poikilocytosis Not Reportable 11/14/17 09:30 Anisocytosis Not Reportable 11/14/17 09:30 Microcytosis Not Reportable 11/14/17 09:30 Macrocytosis Not Reportable 11/14/17 09:30 Spherocytes Not Reportable 11/14/17 09:30 Pappenheimer Bodies Not Reportable 11/14/17 09:30 Sickle Cells Not Reportable 11/14/17 09:30 Target Cells Not Reportable 11/14/17 09:30 Tear Drop Cells Not Reportable 11/14/17 09:30 Ovalocytes Not Reportable 11/14/17 09:30 Stomatocytes Few 11/12/17 03:15 Helmet Cells Not Reportable 11/14/17 09:30 Val[place] Bodies Not Reportable 11/14/17 09:30 [place] Rings Not Reportable 11/14/17 09:30 Kimberly Cells Not Reportable 11/14/17 09:30 Bite Cells Not Reportable 11/14/17 09:30 Crenated Cell Not Reportable 11/14/17 09:30 Elliptocytes Not Reportable 11/14/17 09:30 Acanthocytes (Spur) Not Reportable 11/14/17 09:30 Rouleaux Not Reportable 11/14/17 09:30 Hemoglobin C Crystals Not Reportable 11/14/17 09:30 Schistocytes Not Reportable 11/14/17 09:30 Malaria parasites Not Reportable 11/14/17 09:30 ESR > 140.0 mm/Hr (0-20) 11/12/17 19:10 Roman Bodies Not Reportable 11/14/17 09:30 Hem Pathologist Commnt No 11/14/17 09:30 VBG pH 7.382 (7.320-7.420) 11/12/17 03:15 Sodium 138 mmol/L (137-145) 11/14/17 09:30 Potassium 4.2 mmol/L (3.6-5.0) 11/14/17 09:30 Chloride 101.4 mmol/L (98-107) 11/14/17 09:30 Carbon Dioxide 21 mmol/L (22-30) L 11/14/17 09:30 Anion Gap 20 mmol/L 11/14/17 09:30 BUN 43 mg/dL (9-20) H 11/14/17 09:30 Creatinine 2.9 mg/dL (0.8-1.5) H 11/14/17 09:30 Estimated GFR 29 ml/min 11/14/17 09:30 BUN/Creatinine Ratio 15 % 11/14/17 09:30 Glucose 127 mg/dL (75-100) H 11/14/17 09:30 POC Glucose 121 (70-105) H 11/14/17 06:31 Hemoglobin A1c 9.7 % (4-6) H 11/12/17 03:15 Lactic Acid 1.10 mmol/L (0.7-2.0) 11/12/17 08:34 Uric Acid 9.3 mg/dL (3.5-7.6) H 11/14/17 09:30 Calcium 8.3 mg/dL (8.4-10.2) L 11/14/17 09:30 Phosphorus 4.50 mg/dL (2.5-4.5) 11/14/17 09:30 Total Bilirubin 0.30 mg/dL (0.1-1.2) 11/12/17 19:10 Direct Bilirubin < 0.2 mg/dL (0-0.2) 11/12/17 19:10 Indirect Bilirubin 0.1 mg/dL 11/12/17 19:10 AST 15 units/L (5-40) 11/12/17 03:15 ALT 7 units/L (7-56) 11/12/17 03:15 Alkaline Phosphatase 140 units/L (35-129) H 11/12/17 03:15 Lactate Dehydrogenase 342 units/L (91-180) H 11/13/17 15:22 Total Creatine Kinase 63 units/L (55-170) 11/12/17 03:15 Troponin T 0.106 ng/mL (0.00-0.029) H* 11/12/17 03:15 C-Reactive Protein 26.60 mg/dL (0.00-1.30) H 11/14/17 09:30 Total Protein 8.1 g/dL (6.3-8.2) 11/12/17 03:15 Albumin 1.8 g/dL (3.9-5) L 11/12/17 03:15 Albumin/Globulin Ratio 0.3 % 11/12/17 03:15 Triglycerides 95 mg/dL (2-149) 11/12/17 03:15 Cholesterol 102 mg/dL (50-199) 11/12/17 03:15 LDL Cholesterol Direct 47 mg/dL (50-130) L 11/12/17 03:15 HDL Cholesterol 30 mg/dL (40-59) L 11/12/17 03:15 Cholesterol/HDL Ratio 3.40 % 11/12/17 03:15 Vitamin B12 1267 pg/mL (211-911) H 11/12/17 19:10 Urine Color Yellow (Yellow) 11/14/17 07:03 Urine Turbidity Clear (Clear) 11/14/17 07:03 Urine pH 5.0 (5.0-7.0) 11/14/17 07:03 Ur Specific [place] 1.016 (1.003-1.030) 11/14/17 07:03 Urine Protein 100 mg/dl mg/dL (Negative) 11/14/17 07:03 Urine Glucose (UA) 50 mg/dL (Negative) 11/14/17 07:03 Urine Ketones Neg mg/dL (Negative) 11/14/17 07:03 Urine Blood Sm (Negative) 11/14/17 07:03 Urine Nitrite Neg (Negative) 11/14/17 07:03 Urine Bilirubin Neg (Negative) 11/14/17 07:03 Urine Urobilinogen < 2.0 mg/dL (<2.0) 11/14/17 07:03 Ur Leukocyte Esterase Neg (Negative) 11/14/17 07:03 Urine WBC (Auto) 8.0 /HPF (0.0-6.0) H 11/14/17 07:03 Urine RBC (Auto) 10.0 /HPF (0.0-6.0) 11/14/17 07:03 U Epithel Cells (Auto) < 1.0 /HPF (0-13.0) 11/14/17 07:03 Urine Bacteria (Auto) 1+ /HPF (Negative) 11/14/17 07:03 Hyaline Casts 1 /LPF 11/12/17 Unknown Urine Mucus Few /HPF 11/14/17 07:03 Urine Creatinine 109.8 mg/dL (0.1-20.0) H 11/14/17 07:03 Protein/Creatinin Ratio 4.47 11/14/17 07:03 Urine Sodium 33 mmol/L 11/14/17 07:03 Urine Total Protein 502 mg/dL (5-11.8) H 11/14/17 07:03 Random Vancomycin 35.9 ug/mL (0-40.0) 11/14/17 09:30 Hep Bs Antigen Non-reactive (Negative) 11/13/17 15:23 Hepatitis C Antibody Non-reactive (NonReactive) 11/13/17 15:22 HIV 1&2 Antibody Rapid Non react (Non React) 11/13/17 15:10 HIV P24 Antigen Non react (Non React) 11/13/17 15:10 Schistocytes Smear None seen 11/13/17 15:10 Blood Type O POSITIVE 11/13/17 08:20 Antibody Screen Negative 11/13/17 08:20 Direct Antiglob Test Negative 11/12/17 19:10 MELINA, Poly Interpret Negative 11/12/17 19:10 Crossmatch See Detail 11/13/17 08:20
[2017-11-14] MEDS: NACL 0.9% 1000 ML 1,000 ML IV SCH (14:49)
[2017-11-14] MEDS: cefTRIAXone 2 GM in NACL 0.9% 20 ML IV SCH (14:50)
--- NOTE | 2017-11-14 18:40 | Progress Note ---
Assessment and Plan - Patient Problems (1) Acute renal injury Current Visit: Yes Status: Acute Plan to address problem: probably due to dehydration, due ti N/V.. hydrate, and monitor labs. (2) Cellulitis Current Visit: Yes Status: Acute Plan to address problem: ABX therapy. (3) Hyperglycemia Current Visit: Yes Status: Acute Plan to address problem: Better control of BG. (4) Anemia Current Visit: No Status: Chronic Plan to address problem: see w/up, continue to monitor labs. 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 (6) Leukocytosis Current Visit: No Status: Chronic Plan to address problem: due to uti/cellulites. (7) Osteomyelitis of left foot Current Visit: No Status: Chronic Plan to address problem: once established/confirmed, prolonged ABX. Subjective Date of service: 11/14/17 Interval history: Patient seen/examined, resting in bed, vss, afebrile, family at the bed side.Records reviewed, case d/w patient. Hgb dropped, and replacement transfusion given. Patient s/p small right knee fluid asp. Patient seen/examined, resting in bed, records reviewed, case d/w patient.he still complains of right leg pain. Objective - Constitutional Vitals: Vital Signs - 12hr 11/14/17 08:22 Temperature 100.0 F H Pulse Rate 94 H Respiratory 20 Rate Blood Pressure 162/87 O2 Sat by Pulse 96 Oximetry General appearance: Present: mild distress, well-nourished - EENT Eyes: PERRL, EOM intact ENT: hearing intact, clear oral mucosa Ears: bilateral: normal - Neck Neck: supple, normal ROM - Respiratory Respiratory effort: normal Respiratory: bilateral: CTA - Breasts Breasts: deferred - Cardiovascular Rhythm: regular Heart Sounds: Present: S1 & S2. Absent: gallop, rub Extremities: pulses intact, No edema, normal color, Full ROM - Gastrointestinal General gastrointestinal: Present: soft, non-tender, non-distended, normal bowel sounds Rectal Exam: deferred - Genitourinary Male genitourinary: deferred - Integumentary Integumentary: clear, warm, dry - Musculoskeletal Musculoskeletal: 1, strength equal bilaterally - Neurologic Neurologic: moves all extremities - Psychiatric Psychiatric: memory intact, appropriate mood/affect, intact judgment & insight - Labs CBC & Chem 7: 11/14/17 09:30 11/14/17 09:30 Labs: Abnormal lab results 11/13/17 11/13/17 11/14/17 Range/Units 08:20 21:07 06:31 WBC (4.5-11.0) K/mm3 RBC (3.65-5.03) M/mm3 Hgb (11.8-15.2) gm/dl Hct (35.5-45.6) % MCV (84-94) fl MCHC (32-34) % RDW (13.2-15.2) % Plt Count (140-440) K/mm3 Seg Neuts % (Manual) (40.0-70.0) % Lymphocytes % (Manual) (13.4-35.0) % Seg Neutrophils # Man (1.8-7.7) K/mm3 Lymphocytes # (Manual) (1.2-5.4) K/mm3 Monocytes # (Manual) (0.0-0.8) K/mm3 Eosinophils # (Manual) (0.0-0.4) K/mm3 Carbon Dioxide (22-30) mmol/L BUN (9-20) mg/dL Creatinine (0.8-1.5) mg/dL Glucose (75-100) mg/dL POC Glucose 124 H 121 H (70-105) Uric Acid (3.5-7.6) mg/dL Calcium (8.4-10.2) mg/dL C-Reactive Protein (0.00-1.30) mg/dL Urine WBC (Auto) (0.0-6.0) /HPF Urine Creatinine (0.1-20.0) mg/dL Urine Total Protein (5-11.8) mg/dL Crossmatch See Detail 11/14/17 11/14/17 11/14/17 Range/Units 07:03 07:03 07:03 WBC (4.5-11.0) K/mm3 RBC (3.65-5.03) M/mm3 Hgb (11.8-15.2) gm/dl Hct (35.5-45.6) % MCV (84-94) fl MCHC (32-34) % RDW (13.2-15.2) % Plt Count (140-440) K/mm3 Seg Neuts % (Manual) (40.0-70.0) % Lymphocytes % (Manual) (13.4-35.0) % Seg Neutrophils # Man (1.8-7.7) K/mm3 Lymphocytes # (Manual) (1.2-5.4) K/mm3 Monocytes # (Manual) (0.0-0.8) K/mm3 Eosinophils # (Manual) (0.0-0.4) K/mm3 Carbon Dioxide (22-30) mmol/L BUN (9-20) mg/dL Creatinine (0.8-1.5) mg/dL Glucose (75-100) mg/dL POC Glucose (70-105) Uric Acid (3.5-7.6) mg/dL Calcium (8.4-10.2) mg/dL C-Reactive Protein (0.00-1.30) mg/dL Urine WBC (Auto) 8.0 H (0.0-6.0) /HPF Urine Creatinine 109.8 H 112.3 H (0.1-20.0) mg/dL Urine Total Protein 502 H (5-11.8) mg/dL Crossmatch 11/14/17 11/14/17 11/14/17 Range/Units 09:30 09:30 09:30 WBC 26.6 H (4.5-11.0) K/mm3 RBC 2.74 L (3.65-5.03) M/mm3 Hgb 8.0 L (11.8-15.2) gm/dl Hct 26.3 L (35.5-45.6) % MCV 96 H (84-94) fl MCHC 31 L (32-34) % RDW 16.6 H (13.2-15.2) % Plt Count 588 H (140-440) K/mm3 Seg Neuts % (Manual) 90.5 H (40.0-70.0) % Lymphocytes % (Manual) 3.0 L (13.4-35.0) % Seg Neutrophils # Man 24.1 H (1.8-7.7) K/mm3 Lymphocytes # (Manual) 0.8 L (1.2-5.4) K/mm3 Monocytes # (Manual) 0.9 H (0.0-0.8) K/mm3 Eosinophils # (Manual) 0.5 H (0.0-0.4) K/mm3 Carbon Dioxide 21 L (22-30) mmol/L BUN 43 H (9-20) mg/dL Creatinine 2.9 H (0.8-1.5) mg/dL Glucose 127 H (75-100) mg/dL POC Glucose (70-105) Uric Acid (3.5-7.6) mg/dL Calcium 8.3 L (8.4-10.2) mg/dL C-Reactive Protein 26.60 H (0.00-1.30) mg/dL Urine WBC (Auto) (0.0-6.0) /HPF Urine Creatinine (0.1-20.0) mg/dL Urine Total Protein (5-11.8) mg/dL Crossmatch 11/14/17 11/14/17 Range/Units 09:30 11:54 WBC (4.5-11.0) K/mm3 RBC (3.65-5.03) M/mm3 Hgb (11.8-15.2) gm/dl Hct (35.5-45.6) % MCV (84-94) fl MCHC (32-34) % RDW (13.2-15.2) % Plt Count (140-440) K/mm3 Seg Neuts % (Manual) (40.0-70.0) % Lymphocytes % (Manual) (13.4-35.0) % Seg Neutrophils # Man (1.8-7.7) K/mm3 Lymphocytes # (Manual) (1.2-5.4) K/mm3 Monocytes # (Manual) (0.0-0.8) K/mm3 Eosinophils # (Manual) (0.0-0.4) K/mm3 Carbon Dioxide (22-30) mmol/L BUN (9-20) mg/dL Creatinine (0.8-1.5) mg/dL Glucose (75-100) mg/dL POC Glucose 169 H (70-105) Uric Acid 9.3 H (3.5-7.6) mg/dL Calcium (8.4-10.2) mg/dL C-Reactive Protein (0.00-1.30) mg/dL Urine WBC (Auto) (0.0-6.0) /HPF Urine Creatinine (0.1-20.0) mg/dL Urine Total Protein (5-11.8) mg/dL Crossmatch
[2017-11-14] MEDS: PERCOCET 5/325 PO PRN (23:32)
[2017-11-15] MEDS: NACL 0.9% 1000 ML 1,000 ML IV SCH ×3 (01:22→18:41)
[2017-11-15] MEDS: HumuLIN R SUB-Q SCH ×4 (09:31→23:48)
[2017-11-15] MEDS: HEPARIN SUB-Q SCH ×2 (09:32→23:49)
--- NOTE | 2017-11-15 10:16 | Progress Note ---
Assessment and Plan Acute on chronic kidney disease: -Labs pending today -CKD possibly secondary to Diabetic nephropathy, review of labs in 2013 showed SCr level between 1.5-2.0 -Calculated protein/cr ratio > 4 g, possibly secondary to diabetic nephropathy, however, will obtain secondary GN and vasculitis work up -HBV, HCV, HIV - negative -ANCA, NATHAN, C3, C4, Anti-GBM pending -Renal US showed no hydronephrosis -On 0.9% NS infusion at 100 ml/hr -Renally dose meds -Strict intake and output -[place] Catheter: No -Renal plan d/w Dr Lamb -Continue supportive therapy Sepsis: Possible Right Knee cellulitis: -S/p Right knee aspiration, follow up cultures and cell count -Uric acid level was 9.3 on 11/14/17 -On rocephin -MRI showed large joint effusion, questionable disruption of medial meniscus. -ID and Ortho consulted, f/u recs Anemia: -Possibly secondary to CKD -S/p transfusion of 1 unit of PRBCs on 11/13/17 -Monitor for need for blood transfusion Diabetes Mellitus Type 2 insulin dependent: -On insulin -As per primary team Subjective Date of service: 11/15/17 Interval history: Pt reports having right knee pain, no acute distress, family at bedside Objective - Vital Signs Vital signs: Vital Signs - 12hr 11/14/17 11/14/17 11/15/17 23:32 23:58 05:44 Temperature 100.1 F H 99.0 F Pulse Rate 92 H 93 H Respiratory 18 18 18 Rate Blood Pressure 136/66 139/72 O2 Sat by Pulse 94 93 Oximetry 11/15/17 09:17 Temperature 100.2 F H Pulse Rate 94 H Respiratory 20 Rate Blood Pressure 147/77 O2 Sat by Pulse 95 Oximetry - General Appearance General appearance: well-developed (no acute distress) EENT: ATNC Neck: no JVD Respiratory: Present: Clear to Ascultation Cardiology: regular, S1S2 Gastrointestinal: normoactive bowel sounds, no tenderness Integumentary: other (left foot wound with dressing in place) Neurologic: alert and oriented x3 Musculoskeletal: other (right knee edema) Psychiatric: mood/affect appropriate - Lab 11/14/17 09:30 11/14/17 09:30 Most recent lab results Calcium 8.3 mg/dL (8.4-10.2) L 11/14/17 09:30 Phosphorus 4.50 mg/dL (2.5-4.5) 11/14/17 09:30 Urine Creatinine 109.8 mg/dL (0.1-20.0) H 11/14/17 07:03 Urine Sodium 33 mmol/L 11/14/17 07:03 Urine Total Protein 502 mg/dL (5-11.8) H 11/14/17 07:03
[2017-11-15 10:44] LABS: Calcium 8.2 mg/dL (8.4-10.2)
[2017-11-15 10:49] LABS: Hematocrit 23.2 % (35.5-45.6); Hemoglobin 7.3 gm/dl (11.8-15.2); Mean Corpuscular HGB Conc 32 % (32-34); Mean Corpuscular Hemoglobin 29 pg (28-32); Mean Corpuscular Volume 90 fl (84-94); Red Blood Count 2.57 M/mm3 (3.65-5.03); Red Cell Distribution Width 16.8 % (13.2-15.2)
[2017-11-15 10:50] LABS: Platelet Count 612 K/mm3 (140-440)
[2017-11-15 10:56] LABS: Hematocrit 21.9 % (35.5-45.6); Hemoglobin 7.1 gm/dl (11.8-15.2); Mean Corpuscular HGB Conc 32 % (32-34); Mean Corpuscular Hemoglobin 29 pg (28-32); Mean Corpuscular Volume 89 fl (84-94); Platelet Count 575 K/mm3 (140-440); Red Blood Count 2.47 M/mm3 (3.65-5.03); Red Cell Distribution Width 16.4 % (13.2-15.2)
[2017-11-15 11:31] LABS: Band Neutrophils # (Manual) 0.3 K/mm3; Basophils % (Manual) 0 % (0.0-1.8); Total Cells Counted 100
[2017-11-15 11:33] LABS: Hypochromasia 2+; Platelet Estimate Consistent w Auto
[2017-11-15] MEDS: cefTRIAXone 2 GM in NACL 0.9% 20 ML IV SCH (12:46)
--- NOTE | 2017-11-15 13:17 | Progress Note ---
Assessment and Plan Assessment: 1) Sepsis: still fever and increasing WBC 29K; likely due to right knee arthritis 2) Right knee arthritis: unclear ? Septic vs. reactive (gout/pseudogout/other inflammatory arthritis) -MRI showed large effusion -S/P joint aspiration fluid with many PMNs and no organism -Uric acid 9.6 -CRP 26 3) DM-uncontrolled 4) Anemia 5) BLAS 6) Recent diarrhea Plan: -f/u synovial fluid crystals and cell count and differential -f/u synovial fluid cultures -f/u CCP -continue vancomycin and ceftriaxone for now -consider trial of IV steroids +/- colchinine (gouty arthritis) Thanks for consultation Perla No MD Subjective Date of service: 11/15/17 Principal diagnosis: right knee swelling Interval history: Feels better, still knee pain and swelling unable to walk on the leg, still fever at 100.2 Micro: Blood cx: 11/12 ngtd Urine culture: 11/12 neg Synovial fluid: Many PMN, no organism, no growth for 2 days Objective - Exam Narrative Exam: Alert in NAD Clear OP Lungs CTA yuriy CV RRR Abd soft NT ND Ext right knee swelling, heat and mild tenderness, no erythema. Multiple missing yuriy toes. Left fore foot deformity - Constitutional Vitals: Vital Signs Temp Pulse Resp BP Pulse Ox 100.2 F H 94 H 20 147/77 95 11/15/17 09:17 11/15/17 09:17 11/15/17 09:17 11/15/17 09:17 11/15/17 09:17 Temperature -Last 24 Hours Temperature 100.2 F Temperature 99.0 F Temperature 100.1 F Temperature 100.2 F Temperature 97.7 F - Labs CBC & Chem 7: 11/15/17 10:27 11/15/17 09:28 Labs: Abnormal lab results 11/14/17 11/14/17 11/15/17 Range/Units 11:54 21:38 06:58 WBC (4.5-11.0) K/mm3 RBC (3.65-5.03) M/mm3 Hgb (11.8-15.2) gm/dl Hct (35.5-45.6) % RDW (13.2-15.2) % Plt Count (140-440) K/mm3 Seg Neuts % (Manual) (40.0-70.0) % Lymphocytes % (Manual) (13.4-35.0) % Seg Neutrophils # Man (1.8-7.7) K/mm3 Monocytes # (Manual) (0.0-0.8) K/mm3 Eosinophils # (Manual) (0.0-0.4) K/mm3 BUN (9-20) mg/dL Creatinine (0.8-1.5) mg/dL Glucose (75-100) mg/dL POC Glucose 169 H 142 H 144 H (70-105) Calcium (8.4-10.2) mg/dL 11/15/17 11/15/17 11/15/17 Range/Units 09:28 09:28 10:27 WBC 30.8 H 29.5 H (4.5-11.0) K/mm3 RBC 2.57 L 2.47 L (3.65-5.03) M/mm3 Hgb 7.3 L 7.1 L (11.8-15.2) gm/dl Hct 23.2 L 21.9 L (35.5-45.6) % RDW 16.8 H 16.4 H (13.2-15.2) % Plt Count 612 H 575 H (140-440) K/mm3 Seg Neuts % (Manual) 86.0 H (40.0-70.0) % Lymphocytes % (Manual) 7.0 L (13.4-35.0) % Seg Neutrophils # Man 26.5 H (1.8-7.7) K/mm3 Monocytes # (Manual) 1.2 H (0.0-0.8) K/mm3 Eosinophils # (Manual) 0.6 H (0.0-0.4) K/mm3 BUN 44 H (9-20) mg/dL Creatinine 2.9 H (0.8-1.5) mg/dL Glucose 123 H (75-100) mg/dL POC Glucose (70-105) Calcium 8.2 L (8.4-10.2) mg/dL
--- NOTE | 2017-11-15 15:30 | Progress Note ---
Assessment and Plan Assessment and plan: 42-year-old -Iranian male with past medical history significant for uncontrolled diabetes mellitus, obesity, status post multiple toe amputation presented to the emergency department complaining of right knee swelling and pain Sepsis - leukocytosis getting worse - Patient is on IV vancomycin and ceftriaxone - ID consult appreciated Right knee cellulitis - Patient is on IV vancomycin and Zosyn - MRI of the right leg was done Large joint effusion is present. Medial meniscus is mildly displaced anteriorly, I suspect there is meniscal capsular separation possibly disruption of the medial meniscal anchor as well. No meniscal tear however is visualized. Mild tendinosis patellar tendon. Large amount of subcutaneous edema visualized medially greater than laterally. I cannot exclude cellulitis. - Orthopedics consulted for joint aspiration 6ml ? Gouty vs Septic Arthritis - Patient started with IV solu-medrol, and will reconsult surgery for therapeutic and diagnostic joint aspiration Obesity - patient is counseled about weight loss, diet and exercise Diabetes mellitus with hyperglycemia - Resumed his home dose of humolog 15 mg TID - Started on insulin 70/30 20 twice a day - Blood sugar is will controlled Acute kidney injury - IV fluids - Nephrology consult Severe Anemia - Hgb was 6.6, and post transfusion hgb is 7.1 DVT prophylaxis - Lovenox Disposition - Continue inpatient care. History Interval history: Patient was seen and evaluated this morning, swelling and pain is getting better. Management plan was discussed with the patient and his who was in the room with him. Hospitalist Physical - Physical exam Narrative exam: Not in cardiopulmonary distress. The patient is obese. Vital signs as documented. Head exam is unremarkable. No scleral icterus . Neck is without jugular venous distension, thyromegaly, or carotid bruits. Lungs are clear to auscultation. Cardiac exam reveals regular rate and Rhythm. First and second heart sounds normal. No murmurs, rubs or gallops. Abdominal exam reveals normal bowel sounds, no masses, no organomegaly and no aortic enlargement. Extremities swelling, erythema and tenderness of the right leg extending from the right thigh to the bynum. INSTRUMENTATION MANAGER: Alert and oriented 3. No focal weakness. - Constitutional Vitals: Temp Pulse Resp BP Pulse Ox 100.2 F H 94 H 20 147/77 95 11/15/17 09:17 11/15/17 09:17 11/15/17 09:17 11/15/17 09:17 11/15/17 09:17 General appearance: Present: mild distress, well-nourished Results - Labs CBC & Chem 7: 11/15/17 10:27 11/15/17 09:28 Labs: Laboratory Last Values WBC 29.5 K/mm3 (4.5-11.0) H 11/15/17 10:27 RBC 2.47 M/mm3 (3.65-5.03) L 11/15/17 10:27 Hgb 7.1 gm/dl (11.8-15.2) L 11/15/17 10:27 Hct 21.9 % (35.5-45.6) L 11/15/17 10:27 MCV 89 fl (84-94) 11/15/17 10:27 MCH 29 pg (28-32) 11/15/17 10:27 MCHC 32 % (32-34) 11/15/17 10:27 RDW 16.4 % (13.2-15.2) H 11/15/17 10:27 Plt Count 575 K/mm3 (140-440) H 11/15/17 10:27 Lymph % (Auto) Senior Copywriter 11/14/17 09:30 [place] % (Auto) Senior Copywriter 11/14/17 09:30 Eos % (Auto) Senior Copywriter 11/14/17 09:30 Baso % (Auto) Senior Copywriter 11/14/17 09:30 Lymph # Senior Copywriter 11/14/17 09:30 [place] # Senior Copywriter 11/14/17 09:30 Eos # Senior Copywriter 11/14/17 09:30 Baso # Senior Copywriter 11/14/17 09:30 Add Manual Diff Complete 11/15/17 09:28 Total Counted 100 11/15/17 09:28 Seg Neutrophils % Senior Copywriter 11/14/17 09:30 Seg Neuts % (Manual) 86.0 % (40.0-70.0) H 11/15/17 09:28 Band Neutrophils % 1.0 % 11/15/17 09:28 Lymphocytes % (Manual) 7.0 % (13.4-35.0) L 11/15/17 09:28 Reactive Lymphs % (Man) 0 % 11/15/17 09:28 Monocytes % (Manual) 4.0 % (0.0-7.3) 11/15/17 09:28 Eosinophils % (Manual) 2.0 % (0.0-4.3) 11/15/17 09:28 Basophils % (Manual) 0 % (0.0-1.8) 11/15/17 09:28 Metamyelocytes % 0 % 11/15/17 09:28 Myelocytes % 0 % 11/15/17 09:28 Promyelocytes % 0 % 11/15/17 09:28 Blast Cells % 0 % 11/15/17 09:28 Nucleated RBC % Not Reportable 11/15/17 09:28 Seg Neutrophils # Senior Copywriter 11/14/17 09:30 Seg Neutrophils # Man 26.5 K/mm3 (1.8-7.7) H 11/15/17 09:28 Band Neutrophils # 0.3 K/mm3 11/15/17 09:28 Lymphocytes # (Manual) 2.2 K/mm3 (1.2-5.4) 11/15/17 09:28 Abs React Lymphs (Man) 0.0 K/mm3 11/15/17 09:28 Monocytes # (Manual) 1.2 K/mm3 (0.0-0.8) H 11/15/17 09:28 Eosinophils # (Manual) 0.6 K/mm3 (0.0-0.4) H 11/15/17 09:28 Basophils # (Manual) 0.0 K/mm3 (0.0-0.1) 11/15/17 09:28 Metamyelocytes # 0.0 K/mm3 11/15/17 09:28 Myelocytes # 0.0 K/mm3 11/15/17 09:28 Promyelocytes # 0.0 K/mm3 11/15/17 09:28 Blast Cells # 0.0 K/mm3 11/15/17 09:28 WBC Morphology Not Reportable 11/15/17 09:28 Hypersegmented Neuts Not Reportable 11/15/17 09:28 Hyposegmented Neuts Not Reportable 11/15/17 09:28 Hypogranular Neuts Not Reportable 11/15/17 09:28 Smudge Cells Not Reportable 11/15/17 09:28 Toxic Granulation Not Reportable 11/15/17 09:28 Toxic Vacuolation Not Reportable 11/15/17 09:28 Dohle Bodies Not Reportable 11/15/17 09:28 Pelger-Huet Anomaly Not Reportable 11/15/17 09:28 Romeo Rods Not Reportable 11/15/17 09:28 Platelet Estimate Consistent w auto 11/15/17 09:28 Clumped Platelets Not Reportable 11/15/17 09:28 Plt Clumps, EDTA Not Reportable 11/15/17 09:28 Large Platelets Not Reportable 11/15/17 09:28 Giant Platelets Not Reportable 11/15/17 09:28 Platelet Satelliting Not Reportable 11/15/17 09:28 Plt Morphology Comment Not Reportable 11/15/17 09:28 RBC Morphology Not Reportable 11/15/17 09:28 Dimorphic RBCs Not Reportable 11/15/17 09:28 Polychromasia Not Reportable 11/15/17 09:28 Hypochromasia 2+ 11/15/17 09:28 Poikilocytosis Not Reportable 11/15/17 09:28 Anisocytosis Not Reportable 11/15/17 09:28 Microcytosis Not Reportable 11/15/17 09:28 Macrocytosis Not Reportable 11/15/17 09:28 Spherocytes Not Reportable 11/15/17 09:28 Pappenheimer Bodies Not Reportable 11/15/17 09:28 Sickle Cells Not Reportable 11/15/17 09:28 Target Cells Not Reportable 11/15/17 09:28 Tear Drop Cells Not Reportable 11/15/17 09:28 Ovalocytes Not Reportable 11/15/17 09:28 Stomatocytes Few 11/12/17 03:15 Helmet Cells Not Reportable 11/15/17 09:28 [place] Bodies Not Reportable 11/15/17 09:28 [place] Rings Not Reportable 11/15/17 09:28 [place] Cells Not Reportable 11/15/17 09:28 Bite Cells Not Reportable 11/15/17 09:28 Crenated Cell Not Reportable 11/15/17 09:28 Elliptocytes Not Reportable 11/15/17 09:28 Acanthocytes (Spur) Not Reportable 11/15/17 09:28 Rouleaux Not Reportable 11/15/17 09:28 Hemoglobin C Crystals Not Reportable 11/15/17 09:28 Schistocytes Not Reportable 11/15/17 09:28 Malaria parasites Not Reportable 11/15/17 09:28 ESR > 140.0 mm/Hr (0-20) 11/12/17 19:10 Roman Bodies Not Reportable 11/15/17 09:28 Hem Pathologist Commnt No 11/15/17 09:28 VBG pH 7.382 (7.320-7.420) 11/12/17 03:15 Sodium 139 mmol/L (137-145) 11/15/17 09:28 Potassium 4.0 mmol/L (3.6-5.0) 11/15/17 09:28 Chloride 104.8 mmol/L (98-107) 11/15/17 09:28 Carbon Dioxide 22 mmol/L (22-30) 11/15/17 09:28 Anion Gap 16 mmol/L 11/15/17 09:28 BUN 44 mg/dL (9-20) H 11/15/17 09:28 Creatinine 2.9 mg/dL (0.8-1.5) H 11/15/17 09:28 Estimated GFR 29 ml/min 11/15/17 09:28 BUN/Creatinine Ratio 15 % 11/15/17 09:28 Glucose 123 mg/dL (75-100) H 11/15/17 09:28 POC Glucose 101 (70-105) 11/15/17 12:35 Hemoglobin A1c 9.7 % (4-6) H 11/12/17 03:15 Lactic Acid 1.10 mmol/L (0.7-2.0) 11/12/17 08:34 Uric Acid 9.3 mg/dL (3.5-7.6) H 11/14/17 09:30 Calcium 8.2 mg/dL (8.4-10.2) L 11/15/17 09:28 Phosphorus 4.40 mg/dL (2.5-4.5) 11/15/17 09:28 Total Bilirubin 0.30 mg/dL (0.1-1.2) 11/12/17 19:10 Direct Bilirubin < 0.2 mg/dL (0-0.2) 11/12/17 19:10 Indirect Bilirubin 0.1 mg/dL 11/12/17 19:10 AST 15 units/L (5-40) 11/12/17 03:15 ALT 7 units/L (7-56) 11/12/17 03:15 Alkaline Phosphatase 140 units/L (35-129) H 11/12/17 03:15 Lactate Dehydrogenase 342 units/L (91-180) H 11/13/17 15:22 Total Creatine Kinase 63 units/L (55-170) 11/12/17 03:15 Troponin T 0.106 ng/mL (0.00-0.029) H* 11/12/17 03:15 C-Reactive Protein 26.60 mg/dL (0.00-1.30) H 11/14/17 09:30 Total Protein 8.1 g/dL (6.3-8.2) 11/12/17 03:15 Albumin 1.8 g/dL (3.9-5) L 11/12/17 03:15 Albumin/Globulin Ratio 0.3 % 11/12/17 03:15 Triglycerides 95 mg/dL (2-149) 11/12/17 03:15 Cholesterol 102 mg/dL (50-199) 11/12/17 03:15 LDL Cholesterol Direct 47 mg/dL (50-130) L 11/12/17 03:15 HDL Cholesterol 30 mg/dL (40-59) L 11/12/17 03:15 Cholesterol/HDL Ratio 3.40 % 11/12/17 03:15 Vitamin B12 1267 pg/mL (211-911) H 11/12/17 19:10 Urine Color Yellow (Yellow) 11/14/17 07:03 Urine Turbidity Clear (Clear) 11/14/17 07:03 Urine pH 5.0 (5.0-7.0) 11/14/17 07:03 Ur Specific [place] 1.016 (1.003-1.030) 11/14/17 07:03 Urine Protein 100 mg/dl mg/dL (Negative) 11/14/17 07:03 Urine Glucose (UA) 50 mg/dL (Negative) 11/14/17 07:03 Urine Ketones Neg mg/dL (Negative) 11/14/17 07:03 Urine Blood Sm (Negative) 11/14/17 07:03 Urine Nitrite Neg (Negative) 11/14/17 07:03 Urine Bilirubin Neg (Negative) 11/14/17 07:03 Urine Urobilinogen < 2.0 mg/dL (<2.0) 11/14/17 07:03 Ur Leukocyte Esterase Neg (Negative) 11/14/17 07:03 Urine WBC (Auto) 8.0 /HPF (0.0-6.0) H 11/14/17 07:03 Urine RBC (Auto) 10.0 /HPF (0.0-6.0) 11/14/17 07:03 U Epithel Cells (Auto) < 1.0 /HPF (0-13.0) 11/14/17 07:03 Urine Bacteria (Auto) 1+ /HPF (Negative) 11/14/17 07:03 Hyaline Casts 1 /LPF 11/12/17 Unknown Urine Mucus Few /HPF 11/14/17 07:03 Urine Creatinine 109.8 mg/dL (0.1-20.0) H 11/14/17 07:03 Protein/Creatinin Ratio 4.47 11/14/17 07:03 Urine Sodium 33 mmol/L 11/14/17 07:03 Urine Total Protein 502 mg/dL (5-11.8) H 11/14/17 07:03 Random Vancomycin 35.9 ug/mL (0-40.0) 11/14/17 09:30 Hep Bs Antigen Non-reactive (Negative) 11/13/17 15:23 Hepatitis C Antibody Non-reactive (NonReactive) 11/13/17 15:22 HIV 1&2 Antibody Rapid Non react (Non React) 11/13/17 15:10 HIV P24 Antigen Non react (Non React) 11/13/17 15:10 Schistocytes Smear None seen 11/13/17 15:10 Blood Type O POSITIVE 11/13/17 08:20 Antibody Screen Negative 11/13/17 08:20 Direct Antiglob Test Negative 11/12/17 19:10 MELINA, Poly Interpret Negative 11/12/17 19:10 Crossmatch See Detail 11/13/17 08:20
--- NOTE | 2017-11-15 21:49 | Progress Note ---
Assessment and Plan - Patient Problems (1) Acute renal injury Current Visit: Yes Status: Acute Plan to address problem: probably due to dehydration, due ti N/V.. hydrate, and monitor labs. (2) Cellulitis Current Visit: Yes Status: Acute Plan to address problem: ABX therapy. (3) Hyperglycemia Current Visit: Yes Status: Acute Plan to address problem: Better control of BG. known non compliant with office visit, and diabetes management in the office, same is true for his wound care, which again is dependent on diabetes tight control of his A1c. (4) Anemia Current Visit: No Status: Chronic Plan to address problem: see w/up, continue to monitor labs. 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 (6) Leukocytosis Current Visit: No Status: Chronic Plan to address problem: due to uti/cellulites. (7) Osteomyelitis of left foot Current Visit: No Status: Chronic Plan to address problem: once established/confirmed, prolonged ABX. Subjective Date of service: 11/15/17 Principal diagnosis: right knee swelling Interval history: Patient seen/examined, resting in bed, vss, afebrile, family at the bed side.Records reviewed, case d/w patient. Hgb dropped, and replacement transfusion given. Patient s/p small right knee fluid asp. Patient seen/examined, resting in bed, records reviewed, case d/w patient.he still complains of right leg pain. Patient seen/examined, resting in bed, spouse at the bed side, records reviewed , case d/w both. Hopefully, he will get right knee drainage tomorrow. Objective - Constitutional Vitals: Vital Signs - 12hr 11/15/17 16:30 Temperature 99.5 F Pulse Rate 96 H Respiratory 18 Rate Blood Pressure 138/76 [Left] O2 Sat by Pulse 97 Oximetry General appearance: Present: mild distress, well-nourished - EENT Eyes: PERRL, EOM intact ENT: hearing intact, clear oral mucosa Ears: bilateral: normal - Neck Neck: supple, normal ROM - Respiratory Respiratory effort: normal Respiratory: bilateral: CTA - Breasts Breasts: deferred - Cardiovascular Rhythm: regular Heart Sounds: Present: S1 & S2. Absent: gallop, rub Extremities: pulses intact, No edema, normal color, Full ROM - Gastrointestinal General gastrointestinal: Present: soft, non-tender, non-distended, normal bowel sounds Rectal Exam: deferred - Genitourinary Male genitourinary: deferred - Integumentary Integumentary: clear, warm, dry - Musculoskeletal Musculoskeletal: 1, strength equal bilaterally - Neurologic Neurologic: moves all extremities - Psychiatric Psychiatric: memory intact, appropriate mood/affect, intact judgment & insight - Labs CBC & Chem 7: 11/15/17 10:27 11/15/17 09:28 Labs: Abnormal lab results 11/12/17 11/14/17 11/15/17 Range/Units 19:10 21:38 06:58 WBC (4.5-11.0) K/mm3 RBC (3.65-5.03) M/mm3 Hgb (11.8-15.2) gm/dl Hct (35.5-45.6) % RDW (13.2-15.2) % Plt Count (140-440) K/mm3 Seg Neuts % (Manual) (40.0-70.0) % Lymphocytes % (Manual) (13.4-35.0) % Seg Neutrophils # Man (1.8-7.7) K/mm3 Monocytes # (Manual) (0.0-0.8) K/mm3 Eosinophils # (Manual) (0.0-0.4) K/mm3 Haptoglobin 793 H (43-212) mg/dL BUN (9-20) mg/dL Creatinine (0.8-1.5) mg/dL Glucose (75-100) mg/dL POC Glucose 142 H 144 H (70-105) Calcium (8.4-10.2) mg/dL 11/15/17 11/15/17 11/15/17 Range/Units 09:28 09:28 10:27 WBC 30.8 H 29.5 H (4.5-11.0) K/mm3 RBC 2.57 L 2.47 L (3.65-5.03) M/mm3 Hgb 7.3 L 7.1 L (11.8-15.2) gm/dl Hct 23.2 L 21.9 L (35.5-45.6) % RDW 16.8 H 16.4 H (13.2-15.2) % Plt Count 612 H 575 H (140-440) K/mm3 Seg Neuts % (Manual) 86.0 H (40.0-70.0) % Lymphocytes % (Manual) 7.0 L (13.4-35.0) % Seg Neutrophils # Man 26.5 H (1.8-7.7) K/mm3 Monocytes # (Manual) 1.2 H (0.0-0.8) K/mm3 Eosinophils # (Manual) 0.6 H (0.0-0.4) K/mm3 Haptoglobin (43-212) mg/dL BUN 44 H (9-20) mg/dL Creatinine 2.9 H (0.8-1.5) mg/dL Glucose 123 H (75-100) mg/dL POC Glucose (70-105) Calcium 8.2 L (8.4-10.2) mg/dL 11/15/17 Range/Units 18:21 WBC (4.5-11.0) K/mm3 RBC (3.65-5.03) M/mm3 Hgb (11.8-15.2) gm/dl Hct (35.5-45.6) % RDW (13.2-15.2) % Plt Count (140-440) K/mm3 Seg Neuts % (Manual) (40.0-70.0) % Lymphocytes % (Manual) (13.4-35.0) % Seg Neutrophils # Man (1.8-7.7) K/mm3 Monocytes # (Manual) (0.0-0.8) K/mm3 Eosinophils # (Manual) (0.0-0.4) K/mm3 Haptoglobin (43-212) mg/dL BUN (9-20) mg/dL Creatinine (0.8-1.5) mg/dL Glucose (75-100) mg/dL POC Glucose 144 H (70-105) Calcium (8.4-10.2) mg/dL
[2017-11-16 06:23] LABS: Hematocrit 22.2 % (35.5-45.6); Hemoglobin 6.8 gm/dl (11.8-15.2); Mean Corpuscular HGB Conc 31 % (32-34); Mean Corpuscular Hemoglobin 27 pg (28-32); Mean Corpuscular Volume 89 fl (84-94); Platelet Count 633 K/mm3 (140-440); Red Blood Count 2.49 M/mm3 (3.65-5.03); Red Cell Distribution Width 15.9 % (13.2-15.2)
[2017-11-16] MEDS: NACL 0.9% 1000 ML 1,000 ML IV SCH (06:26)
[2017-11-16 06:44] LABS: Calcium 8.1 mg/dL (8.4-10.2)
[2017-11-16 08:24] LABS: Band Neutrophils # (Manual) 3.1 K/mm3; Basophils % (Manual) 0 % (0.0-1.8); Eosinophils % (Manual) 0 % (0.0-4.3); Platelet Estimate Consistent w Auto; RBC Morphology Normal; Total Cells Counted 100
[2017-11-16] MEDS: HEPARIN SUB-Q SCH (10:43)
[2017-11-16 10:45] LABS: % Iron Saturation 33.33 %
[2017-11-16] MEDS: HumuLIN R SUB-Q SCH ×2 (10:45→12:07)
--- NOTE | 2017-11-16 11:10 | Progress Note ---
Assessment and Plan Acute on chronic kidney disease: -Renal function reviewed, SCr level was 3.0 today, yesterday's SCr level was 2.9 -CKD possibly secondary to Diabetic nephropathy, review of labs in 2012 showed SCr level between 1.5-2.0 -Calculated protein/cr ratio > 4 g, possibly secondary to diabetic nephropathy, however, will obtain secondary GN and vasculitis work up -HBV, HCV, HIV - negative -ANCA, NATHAN, C3, C4, Anti-GBM pending -Renal US showed no hydronephrosis -Decrease 0.9% NS infusion to 50 ml/hr for now, if no significant improvement in renal function tomorrow, will likely discontinue IV fluids -Renally dose meds -Strict intake and output -Encarnacion Catheter: No -Intake= 6120 ml Output= 2850 ml (Net= 3270 ml) -Renal plan d/w Dr Lamb -Continue supportive therapy Sepsis: Possible Right Knee cellulitis: -S/p Right knee aspiration, follow up cultures -Uric acid level was 9.3 on 11/14/17 -On rocephin, steroids -MRI showed large joint effusion, questionable disruption of medial meniscus. -ID and Ortho consulted, f/u recs Anemia: -Possibly secondary to CKD -S/p transfusion of 1 unit of PRBCs on 11/13/17 -Hgb level 6.8 today, 2 units of PRBCs ordered Diabetes Mellitus Type 2 insulin dependent: -On insulin -As per primary team Subjective Date of service: 11/16/17 Principal diagnosis: right knee swelling Interval history: Pt reports having right knee pain, no acute distress, family at bedside Objective - Vital Signs Vital signs: Vital Signs - 12hr 11/15/17 11/16/17 11/16/17 23:30 03:47 08:56 Temperature 99.3 F 97.8 F 98.5 F Pulse Rate 93 H 76 82 Respiratory 18 16 20 Rate Blood Pressure 158/80 145/81 150/75 O2 Sat by Pulse 94 92 97 Oximetry - General Appearance General appearance: well-developed (no acute distress) EENT: ATNC Neck: no JVD Respiratory: Present: Other (Lung sounds decreased bilaterally, unlabored) Cardiology: regular, S1S2 Gastrointestinal: normoactive bowel sounds, no tenderness Integumentary: other (left foot wound with dressing in place) Neurologic: alert and oriented x3 Musculoskeletal: other (right knee swelling/pain) Psychiatric: mood/affect appropriate - Lab 11/16/17 05:58 11/16/17 05:58 Most recent lab results Calcium 8.1 mg/dL (8.4-10.2) L 11/16/17 05:58 Phosphorus 4.60 mg/dL (2.5-4.5) H 11/16/17 05:58 Urine Creatinine 109.8 mg/dL (0.1-20.0) H 11/14/17 07:03 Urine Sodium 33 mmol/L 11/14/17 07:03 Urine Total Protein 502 mg/dL (5-11.8) H 11/14/17 07:03
[2017-11-16] MEDS ORDERED: NACL 0.9% 1000 ML 1,000 ML IV SCH (12:00)
[2017-11-16] MEDS: cefTRIAXone 2 GM in NACL 0.9% 20 ML IV SCH (12:11)
[2017-11-16] MEDS ORDERED: NACL 0.9% 500 ML 500 ML IV ONE (13:00)
--- NOTE | 2017-11-16 14:27 | Progress Note ---
Assessment and Plan Assessment and plan: 42-year-old -[place] male with past medical history significant for uncontrolled diabetes mellitus, obesity, status post multiple toe amputation presented to the emergency department complaining of right knee swelling and pain Sepsis - leukocytosis getting worse, likely due to the steroid - Patient is on IV vancomycin and ceftriaxone - ID consult appreciated Right knee cellulitis - Patient is on IV vancomycin and Zosyn - MRI of the right leg was done Large joint effusion is present. Medial meniscus is mildly displaced anteriorly, I suspect there is meniscal capsular separation possibly disruption of the medial meniscal anchor as well. No meniscal tear however is visualized. Mild tendinosis patellar tendon. Large amount of subcutaneous edema visualized medially greater than laterally. I cannot exclude cellulitis. - Orthopedics consulted for repeat joint aspiration ? Gouty vs Septic Arthritis - Patient started with IV solu-medrol, and will reconsult surgery for therapeutic and diagnostic joint aspiration Obesity - patient is counseled about weight loss, diet and exercise Diabetes mellitus with hyperglycemia - Resumed his home dose of humolog 15 mg TID - Started on insulin 70/30 20 twice a day - Blood sugar is will controlled Acute kidney injury - IV fluids - Nephrology consult Severe Anemia - Hgb was 6.8, and order 2 units of blood DVT prophylaxis - Lovenox Disposition - Continue inpatient care. History Interval history: Patient was seen and evaluated this morning, swelling and pain is getting better. Management plan was discussed with the patient about the management plan. I also notified Dr Calles for the repeat joint fluid aspirations. Hospitalist Physical - Physical exam Narrative exam: Not in cardiopulmonary distress. The patient is obese. Vital signs as documented. Head exam is unremarkable. No scleral icterus . Neck is without jugular venous distension, thyromegaly, or carotid bruits. Lungs are clear to auscultation. Cardiac exam reveals regular rate and Rhythm. First and second heart sounds normal. No murmurs, rubs or gallops. Abdominal exam reveals normal bowel sounds, no masses, no organomegaly and no aortic enlargement. Extremities swelling, erythema and tenderness of the right leg extending from the right thigh to the bynum. POURER BUGGY LADLE: Alert and oriented 3. No focal weakness. - Constitutional Vitals: Temp Pulse Resp BP Pulse Ox 98.5 F 82 20 150/75 97 11/16/17 08:56 11/16/17 08:56 11/16/17 08:56 11/16/17 08:56 11/16/17 08:56 General appearance: Present: mild distress, well-nourished Results - Labs CBC & Chem 7: 11/16/17 05:58 11/16/17 05:58 Labs: Laboratory Last Values WBC 34.1 K/mm3 (4.5-11.0) H 11/16/17 05:58 RBC 2.49 M/mm3 (3.65-5.03) L 11/16/17 05:58 Hgb 6.8 gm/dl (11.8-15.2) L 11/16/17 05:58 Hct 22.2 % (35.5-45.6) L 11/16/17 05:58 MCV 89 fl (84-94) 11/16/17 05:58 MCH 27 pg (28-32) L 11/16/17 05:58 MCHC 31 % (32-34) L 11/16/17 05:58 RDW 15.9 % (13.2-15.2) H 11/16/17 05:58 Plt Count 633 K/mm3 (140-440) H 11/16/17 05:58 Lymph % (Auto) Order Control Clerk Blood Bank 11/14/17 09:30 Irion % (Auto) Order Control Clerk Blood Bank 11/14/17 09:30 Eos % (Auto) Order Control Clerk Blood Bank 11/14/17 09:30 Baso % (Auto) Order Control Clerk Blood Bank 11/14/17 09:30 Lymph # Order Control Clerk Blood Bank 11/14/17 09:30 Irion # Order Control Clerk Blood Bank 11/14/17 09:30 Eos # Order Control Clerk Blood Bank 11/14/17 09:30 Baso # Order Control Clerk Blood Bank 11/14/17 09:30 Add Manual Diff Complete 11/16/17 05:58 Total Counted 100 11/16/17 05:58 Seg Neutrophils % Order Control Clerk Blood Bank 11/16/17 05:58 Seg Neuts % (Manual) 86.0 % (40.0-70.0) H 11/16/17 05:58 Band Neutrophils % 9.0 % 11/16/17 05:58 Lymphocytes % (Manual) 4.0 % (13.4-35.0) L 11/16/17 05:58 Reactive Lymphs % (Man) 0 % 11/16/17 05:58 Monocytes % (Manual) 1.0 % (0.0-7.3) 11/16/17 05:58 Eosinophils % (Manual) 0 % (0.0-4.3) 11/16/17 05:58 Basophils % (Manual) 0 % (0.0-1.8) 11/16/17 05:58 Metamyelocytes % 0 % 11/16/17 05:58 Myelocytes % 0 % 11/16/17 05:58 Promyelocytes % 0 % 11/16/17 05:58 Blast Cells % 0 % 11/16/17 05:58 Nucleated RBC % Not Reportable 11/16/17 05:58 Seg Neutrophils # Order Control Clerk Blood Bank 11/14/17 09:30 Seg Neutrophils # Man 29.3 K/mm3 (1.8-7.7) H 11/16/17 05:58 Band Neutrophils # 3.1 K/mm3 11/16/17 05:58 Lymphocytes # (Manual) 1.4 K/mm3 (1.2-5.4) 11/16/17 05:58 Abs React Lymphs (Man) 0.0 K/mm3 11/16/17 05:58 Monocytes # (Manual) 0.3 K/mm3 (0.0-0.8) 11/16/17 05:58 Eosinophils # (Manual) 0.0 K/mm3 (0.0-0.4) 11/16/17 05:58 Basophils # (Manual) 0.0 K/mm3 (0.0-0.1) 11/16/17 05:58 Metamyelocytes # 0.0 K/mm3 11/16/17 05:58 Myelocytes # 0.0 K/mm3 11/16/17 05:58 Promyelocytes # 0.0 K/mm3 11/16/17 05:58 Blast Cells # 0.0 K/mm3 11/16/17 05:58 WBC Morphology Not Reportable 11/16/17 05:58 Hypersegmented Neuts Not Reportable 11/16/17 05:58 Hyposegmented Neuts Not Reportable 11/16/17 05:58 Hypogranular Neuts Not Reportable 11/16/17 05:58 Smudge Cells Not Reportable 11/16/17 05:58 Toxic Granulation Not Reportable 11/16/17 05:58 Toxic Vacuolation Not Reportable 11/16/17 05:58 Dohle Bodies Not Reportable 11/16/17 05:58 Pelger-Huet Anomaly Not Reportable 11/16/17 05:58 Romeo Rods Not Reportable 11/16/17 05:58 Platelet Estimate Consistent w auto 11/16/17 05:58 Clumped Platelets Not Reportable 11/16/17 05:58 Plt Clumps, EDTA Not Reportable 11/16/17 05:58 Large Platelets Not Reportable 11/16/17 05:58 Giant Platelets Not Reportable 11/16/17 05:58 Platelet Satelliting Not Reportable 11/16/17 05:58 Plt Morphology Comment Not Reportable 11/16/17 05:58 RBC Morphology Normal 11/16/17 05:58 Dimorphic RBCs Not Reportable 11/16/17 05:58 Polychromasia Not Reportable 11/16/17 05:58 Hypochromasia Not Reportable 11/16/17 05:58 Poikilocytosis Not Reportable 11/16/17 05:58 Anisocytosis Not Reportable 11/16/17 05:58 Microcytosis Not Reportable 11/16/17 05:58 Macrocytosis Not Reportable 11/16/17 05:58 Spherocytes Not Reportable 11/16/17 05:58 Pappenheimer Bodies Not Reportable 11/16/17 05:58 Sickle Cells Not Reportable 11/16/17 05:58 Target Cells Not Reportable 11/16/17 05:58 Tear Drop Cells Not Reportable 11/16/17 05:58 Ovalocytes Not Reportable 11/16/17 05:58 Stomatocytes Few 11/12/17 03:15 Helmet Cells Not Reportable 11/16/17 05:58 Valenzuel[place] Bodies Not Reportable 11/16/17 05:58 [place] Rings Not Reportable 11/16/17 05:58 Allons Cells Not Reportable 11/16/17 05:58 Bite Cells Not Reportable 11/16/17 05:58 Crenated Cell Not Reportable 11/16/17 05:58 Elliptocytes Not Reportable 11/16/17 05:58 Acanthocytes (Spur) Not Reportable 11/16/17 05:58 Rouleaux Not Reportable 11/16/17 05:58 Hemoglobin C Crystals Not Reportable 11/16/17 05:58 Schistocytes Not Reportable 11/16/17 05:58 Malaria parasites Not Reportable 11/16/17 05:58 ESR > 140.0 mm/Hr (0-20) 11/12/17 19:10 Roman Bodies Not Reportable 11/16/17 05:58 Haptoglobin 793 mg/dL (43-212) H 11/12/17 19:10 Hem Pathologist Commnt No 11/16/17 05:58 VBG pH 7.382 (7.320-7.420) 11/12/17 03:15 Sodium 136 mmol/L (137-145) L 11/16/17 05:58 Potassium 4.6 mmol/L (3.6-5.0) 11/16/17 05:58 Chloride 101.3 mmol/L (98-107) 11/16/17 05:58 Carbon Dioxide 19 mmol/L (22-30) L 11/16/17 05:58 Anion Gap 20 mmol/L 11/16/17 05:58 BUN 48 mg/dL (9-20) H 11/16/17 05:58 Creatinine 3.0 mg/dL (0.8-1.5) H 11/16/17 05:58 Estimated GFR 28 ml/min 11/16/17 05:58 BUN/Creatinine Ratio 16 % 11/16/17 05:58 Glucose 288 mg/dL (75-100) H 11/16/17 05:58 POC Glucose 417 (70-105) H 11/16/17 12:13 Hemoglobin A1c 9.7 % (4-6) H 11/12/17 03:15 Lactic Acid 1.10 mmol/L (0.7-2.0) 11/12/17 08:34 Uric Acid 9.3 mg/dL (3.5-7.6) H 11/14/17 09:30 Calcium 8.1 mg/dL (8.4-10.2) L 11/16/17 05:58 Phosphorus 4.60 mg/dL (2.5-4.5) H 11/16/17 05:58 Iron 21 ug/dL (49-181) L 11/16/17 09:27 TIBC 63 mcg/dL (250-450) L 11/16/17 09:27 % Saturation 33.33 % 11/16/17 09:27 Transferrin 59 mg/dl (180-329) L 11/16/17 09:27 Ferritin 2000.0 ng/mL (13.0-400.0) H 11/16/17 09:27 Total Bilirubin 0.30 mg/dL (0.1-1.2) 11/12/17 19:10 Direct Bilirubin < 0.2 mg/dL (0-0.2) 11/12/17 19:10 Indirect Bilirubin 0.1 mg/dL 11/12/17 19:10 AST 15 units/L (5-40) 11/12/17 03:15 ALT 7 units/L (7-56) 11/12/17 03:15 Alkaline Phosphatase 140 units/L (35-129) H 11/12/17 03:15 Lactate Dehydrogenase 342 units/L (91-180) H 11/13/17 15:22 Total Creatine Kinase 63 units/L (55-170) 11/12/17 03:15 Troponin T 0.106 ng/mL (0.00-0.029) H* 11/12/17 03:15 C-Reactive Protein 26.60 mg/dL (0.00-1.30) H 11/14/17 09:30 Total Protein 8.1 g/dL (6.3-8.2) 11/12/17 03:15 Albumin 1.8 g/dL (3.9-5) L 11/12/17 03:15 Albumin/Globulin Ratio 0.3 % 11/12/17 03:15 Triglycerides 95 mg/dL (2-149) 11/12/17 03:15 Cholesterol 102 mg/dL (50-199) 11/12/17 03:15 LDL Cholesterol Direct 47 mg/dL (50-130) L 11/12/17 03:15 HDL Cholesterol 30 mg/dL (40-59) L 11/12/17 03:15 Cholesterol/HDL Ratio 3.40 % 11/12/17 03:15 Vitamin B12 1365 pg/mL (211-911) H 11/16/17 09:27 Folate 4.15 ng/mL (7.3-26.0) L 11/16/17 09:27 Urine Color Yellow (Yellow) 11/14/17 07:03 Urine Turbidity Clear (Clear) 11/14/17 07:03 Urine pH 5.0 (5.0-7.0) 11/14/17 07:03 Ur Specific Bryant 1.016 (1.003-1.030) 11/14/17 07:03 Urine Protein 100 mg/dl mg/dL (Negative) 11/14/17 07:03 Urine Glucose (UA) 50 mg/dL (Negative) 11/14/17 07:03 Urine Ketones Neg mg/dL (Negative) 11/14/17 07:03 Urine Blood Sm (Negative) 11/14/17 07:03 Urine Nitrite Neg (Negative) 11/14/17 07:03 Urine Bilirubin Neg (Negative) 11/14/17 07:03 Urine Urobilinogen < 2.0 mg/dL (<2.0) 11/14/17 07:03 Ur Leukocyte Esterase Neg (Negative) 11/14/17 07:03 Urine WBC (Auto) 8.0 /HPF (0.0-6.0) H 11/14/17 07:03 Urine RBC (Auto) 10.0 /HPF (0.0-6.0) 11/14/17 07:03 U Epithel Cells (Auto) < 1.0 /HPF (0-13.0) 11/14/17 07:03 Urine Bacteria (Auto) 1+ /HPF (Negative) 11/14/17 07:03 Hyaline Casts 1 /LPF 11/12/17 Unknown Urine Mucus Few /HPF 11/14/17 07:03 Urine Creatinine 109.8 mg/dL (0.1-20.0) H 11/14/17 07:03 Protein/Creatinin Ratio 4.47 11/14/17 07:03 Urine Sodium 33 mmol/L 11/14/17 07:03 Urine Total Protein 502 mg/dL (5-11.8) H 11/14/17 07:03 Random Vancomycin 18.6 ug/mL (0-40.0) 11/16/17 05:58 Hep Bs Antigen Non-reactive (Negative) 11/13/17 15:23 Hepatitis C Antibody Non-reactive (NonReactive) 11/13/17 15:22 HIV 1&2 Antibody Rapid Non react (Non React) 11/13/17 15:10 HIV P24 Antigen Non react (Non React) 11/13/17 15:10 Schistocytes Smear None seen 11/13/17 15:10 Blood Type O POSITIVE 11/16/17 09:27 Antibody Screen Negative 11/16/17 09:27 Direct Antiglob Test Negative 11/12/17 19:10 MELINA, Poly Interpret Negative 11/12/17 19:10 Crossmatch See Detail 11/16/17 09:27
[2017-11-16] MEDS ORDERED: HumuLIN R SUB-Q SCH (16:30)
[2017-11-16] MEDS ORDERED: VANCOMYCIN 2,000 MG in NACL 0.9% 500 ML 500 ML IV ONE (18:00)
[2017-11-16 21:31] VITALS: BP 142/76
--- NOTE | 2017-11-16 22:39 | Progress Note ---
Assessment and Plan Assessment: 1) Sepsis: fever trending down and increasing WBC 29-->34K; likely due to right knee arthritis + IV solumedrol 2) Right knee arthritis: unclear ? most likely reactive (gout/pseudogout/other inflammatory arthritis) -MRI showed large effusion -S/P joint aspiration fluid with many PMNs and no organism -Uric acid 9.6 -CRP 26 3) DM-uncontrolled 4) Anemia 5) BLAS 6) Recent diarrhea Plan: -f/u synovial fluid crystals and cell count and differential - pending -f/u CCP -continue vancomycin and ceftriaxone for now -will probably stop all abx soon Thanks for consultation Perla No MD Subjective Date of service: 11/16/17 Principal diagnosis: right knee swelling Interval history: Feels better, fever trending down. Micro: Blood cx: 11/12 ngtd Urine culture: 11/12 neg Synovial fluid: Many PMN, no organism, no growth for 3 days Objective - Exam Narrative Exam: Alert in NAD Clear OP Lungs CTA yuriy CV RRR Abd soft NT ND Ext decreased right knee swelling, heat and mild tenderness, no erythema. Multiple missing yuriy toes. Left fore foot deformity - Constitutional Vitals: Vital Signs Temp Pulse Resp BP Pulse Ox 98.0 F 76 20 142/76 96 11/16/17 16:28 11/16/17 16:28 11/16/17 16:28 11/16/17 16:28 11/16/17 16:28 Temperature -Last 24 Hours Temperature 98.0 F Temperature 98.5 F Temperature 97.8 F Temperature 99.3 F - Labs CBC & Chem 7: 11/16/17 05:58 11/16/17 05:58 Labs: Abnormal lab results 11/16/17 11/16/17 11/16/17 Range/Units 05:35 05:58 05:58 WBC 34.1 H (4.5-11.0) K/mm3 RBC 2.49 L (3.65-5.03) M/mm3 Hgb 6.8 L (11.8-15.2) gm/dl Hct 22.2 L (35.5-45.6) % MCH 27 L (28-32) pg MCHC 31 L (32-34) % RDW 15.9 H (13.2-15.2) % Plt Count 633 H (140-440) K/mm3 Seg Neuts % (Manual) 86.0 H (40.0-70.0) % Lymphocytes % (Manual) 4.0 L (13.4-35.0) % Seg Neutrophils # Man 29.3 H (1.8-7.7) K/mm3 Sodium 136 L (137-145) mmol/L Carbon Dioxide 19 L (22-30) mmol/L BUN 48 H (9-20) mg/dL Creatinine 3.0 H (0.8-1.5) mg/dL Glucose 288 H (75-100) mg/dL POC Glucose 286 H (70-105) Calcium 8.1 L (8.4-10.2) mg/dL Phosphorus 4.60 H (2.5-4.5) mg/dL Iron (49-181) ug/dL TIBC (250-450) mcg/dL Transferrin (180-329) mg/dl Ferritin (13.0-400.0) ng/mL Vitamin B12 (211-911) pg/mL Folate (7.3-26.0) ng/mL Crossmatch 11/16/17 11/16/17 11/16/17 Range/Units 09:27 09:27 09:27 WBC (4.5-11.0) K/mm3 RBC (3.65-5.03) M/mm3 Hgb (11.8-15.2) gm/dl Hct (35.5-45.6) % MCH (28-32) pg MCHC (32-34) % RDW (13.2-15.2) % Plt Count (140-440) K/mm3 Seg Neuts % (Manual) (40.0-70.0) % Lymphocytes % (Manual) (13.4-35.0) % Seg Neutrophils # Man (1.8-7.7) K/mm3 Sodium (137-145) mmol/L Carbon Dioxide (22-30) mmol/L BUN (9-20) mg/dL Creatinine (0.8-1.5) mg/dL Glucose (75-100) mg/dL POC Glucose (70-105) Calcium (8.4-10.2) mg/dL Phosphorus (2.5-4.5) mg/dL Iron 21 L (49-181) ug/dL TIBC 63 L (250-450) mcg/dL Transferrin 59 L (180-329) mg/dl Ferritin (13.0-400.0) ng/mL Vitamin B12 1365 H (211-911) pg/mL Folate (7.3-26.0) ng/mL Crossmatch See Detail 11/16/17 11/16/17 11/16/17 Range/Units 09:27 09:27 12:13 WBC (4.5-11.0) K/mm3 RBC (3.65-5.03) M/mm3 Hgb (11.8-15.2) gm/dl Hct (35.5-45.6) % MCH (28-32) pg MCHC (32-34) % RDW (13.2-15.2) % Plt Count (140-440) K/mm3 Seg Neuts % (Manual) (40.0-70.0) % Lymphocytes % (Manual) (13.4-35.0) % Seg Neutrophils # Man (1.8-7.7) K/mm3 Sodium (137-145) mmol/L Carbon Dioxide (22-30) mmol/L BUN (9-20) mg/dL Creatinine (0.8-1.5) mg/dL Glucose (75-100) mg/dL POC Glucose 417 H (70-105) Calcium (8.4-10.2) mg/dL Phosphorus (2.5-4.5) mg/dL Iron (49-181) ug/dL TIBC (250-450) mcg/dL Transferrin (180-329) mg/dl Ferritin 2000.0 H (13.0-400.0) ng/mL Vitamin B12 (211-911) pg/mL Folate 4.15 L (7.3-26.0) ng/mL Crossmatch 11/16/17 Range/Units 17:22 WBC (4.5-11.0) K/mm3 RBC (3.65-5.03) M/mm3 Hgb (11.8-15.2) gm/dl Hct (35.5-45.6) % MCH (28-32) pg MCHC (32-34) % RDW (13.2-15.2) % Plt Count (140-440) K/mm3 Seg Neuts % (Manual) (40.0-70.0) % Lymphocytes % (Manual) (13.4-35.0) % Seg Neutrophils # Man (1.8-7.7) K/mm3 Sodium (137-145) mmol/L Carbon Dioxide (22-30) mmol/L BUN (9-20) mg/dL Creatinine (0.8-1.5) mg/dL Glucose (75-100) mg/dL POC Glucose 338 H (70-105) Calcium (8.4-10.2) mg/dL Phosphorus (2.5-4.5) mg/dL Iron (49-181) ug/dL TIBC (250-450) mcg/dL Transferrin (180-329) mg/dl Ferritin (13.0-400.0) ng/mL Vitamin B12 (211-911) pg/mL Folate (7.3-26.0) ng/mL Crossmatch
--- NOTE | 2017-11-16 22:42 | Progress Note ---
Assessment and Plan - Patient Problems (1) Acute renal injury Current Visit: Yes Status: Acute Plan to address problem: probably due to dehydration, due ti N/V.. hydrate, and monitor labs. (2) Cellulitis Current Visit: Yes Status: Acute Plan to address problem: ABX therapy. (3) Hyperglycemia Current Visit: Yes Status: Acute Plan to address problem: Better control of BG. known non compliant with office visit, and diabetes management in the office, same is true for his wound care, which again is dependent on diabetes tight control of his A1c. (4) Anemia Current Visit: No Status: Chronic Plan to address problem: see w/up, continue to monitor labs. 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 (6) Leukocytosis Current Visit: No Status: Chronic Plan to address problem: due to uti/cellulites. (7) Osteomyelitis of left foot Current Visit: No Status: Chronic Plan to address problem: once established/confirmed, prolonged ABX. Subjective Date of service: 11/16/17 Principal diagnosis: right knee swelling Interval history: Patient seen/examined, resting in bed, vss, afebrile, family at the bed side.Records reviewed, case d/w patient. Hgb dropped, and replacement transfusion given. Patient s/p small right knee fluid asp. Patient seen/examined, resting in bed, records reviewed, case d/w patient.he still complains of right leg pain. Patient seen/examined, resting in bed, spouse at the bed side, records reviewed , case d/w both. Hopefully, he will get right knee drainage tomorrow. Patient seen/resting in bed, labs reviewed, hgb dropped by about 1gm, T/c/T already ordered.see further labs ordered. Objective - Constitutional Vitals: Vital Signs - 12hr 11/16/17 16:28 Temperature 98.0 F Pulse Rate 76 Respiratory 20 Rate Blood Pressure 142/76 O2 Sat by Pulse 96 Oximetry General appearance: Present: mild distress, well-nourished - EENT Eyes: PERRL, EOM intact ENT: hearing intact, clear oral mucosa Ears: bilateral: normal - Neck Neck: supple, normal ROM - Respiratory Respiratory effort: normal Respiratory: bilateral: CTA - Breasts Breasts: deferred - Cardiovascular Rhythm: regular Heart Sounds: Present: S1 & S2. Absent: gallop, rub Extremities: pulses intact, No edema, normal color, Full ROM - Gastrointestinal General gastrointestinal: Present: soft, non-tender, non-distended, normal bowel sounds Rectal Exam: deferred - Genitourinary Male genitourinary: deferred - Integumentary Integumentary: clear, warm, dry - Musculoskeletal Musculoskeletal: 1, strength equal bilaterally - Neurologic Neurologic: moves all extremities - Psychiatric Psychiatric: memory intact, appropriate mood/affect, intact judgment & insight - Labs CBC & Chem 7: 11/16/17 05:58 18 05:58 Labs: Abnormal lab results 11/16/17 11/16/1718 Range/Units 05:35 05:58 05:58 WBC 34.1 H (4.5-11.0) K/mm3 RBC 2.49 L (3.65-5.03) M/mm3 Hgb 6.8 L (11.8-15.2) gm/dl Hct 22.2 L (35.5-45.6) % MCH 27 L (28-32) pg MCHC 31 L (32-34) % RDW 15.9 H (13.2-15.2) % Plt Count 633 H (140-440) K/mm3 Seg Neuts % (Manual) 86.0 H (40.0-70.0) % Lymphocytes % (Manual) 4.0 L (13.4-35.0) % Seg Neutrophils # Man 29.3 H (1.8-7.7) K/mm3 Sodium 136 L (137-145) mmol/L Carbon Dioxide 19 L (22-30) mmol/L BUN 48 H (9-20) mg/dL Creatinine 3.0 H (0.8-1.5) mg/dL Glucose 288 H (75-100) mg/dL POC Glucose 286 H (70-105) Calcium 8.1 L (8.4-10.2) mg/dL Phosphorus 4.60 H (2.5-4.5) mg/dL Iron (49-181) ug/dL TIBC (250-450) mcg/dL Transferrin (180-329) mg/dl Ferritin (13.0-400.0) ng/mL Vitamin B12 (211-911) pg/mL Folate (7.3-26.0) ng/mL Crossmatch 11/16/17 11/16/17 11/16/17 Range/Units 09: 09:27 09:27 WBC (4.5-11.0) K/mm3 RBC (3.65-5.03) M/mm3 Hgb (11.8-15.2) gm/dl Hct (35.5-45.6) % MCH (28-32) pg MCHC (32-34) % RDW (13.2-15.2) % Plt Count (140-440) K/mm3 Seg Neuts % (Manual) (40.0-70.0) % Lymphocytes % (Manual) (13.4-35.0) % Seg Neutrophils # Man (1.8-7.7) K/mm3 Sodium (137-145) mmol/L Carbon Dioxide (22-30) mmol/L BUN (9-20) mg/dL Creatinine (0.8-1.5) mg/dL Glucose (75-100) mg/dL POC Glucose (70-105) Calcium (8.4-10.2) mg/dL Phosphorus (2.5-4.5) mg/dL Iron 21 L (49-181) ug/dL TIBC 63 L (250-450) mcg/dL Transferrin 59 L (180-329) mg/dl Ferritin (13.0-400.0) ng/mL Vitamin B12 1365 H (211-911) pg/mL Folate (7.3-26.0) ng/mL Crossmatch See Detail 11/16/17 11/16/17 11/16/17 Range/Units 09:27 09:27 12:13 WBC (4.5-11.0) K/mm3 RBC (3.65-5.03) M/mm3 Hgb (11.8-15.2) gm/dl Hct (35.5-45.6) % MCH (28-32) pg MCHC (32-34) % RDW (13.2-15.2) % Plt Count (140-440) K/mm3 Seg Neuts % (Manual) (40.0-70.0) % Lymphocytes % (Manual) (13.4-35.0) % Seg Neutrophils # Man (1.8-7.7) K/mm3 Sodium (137-145) mmol/L Carbon Dioxide (22-30) mmol/L BUN (9-20) mg/dL Creatinine (0.8-1.5) mg/dL Glucose (75-100) mg/dL POC Glucose 417 H (70-105) Calcium (8.4-10.2) mg/dL Phosphorus (2.5-4.5) mg/dL Iron (49-181) ug/dL TIBC (250-450) mcg/dL Transferrin (180-329) mg/dl Ferritin 2000.0 H (13.0-400.0) ng/mL Vitamin B12 (211-911) pg/mL Folate 4.15 L (7.3-26.0) ng/mL Crossmatch 11/16/17 Range/Units 17:22 WBC (4.5-11.0) K/mm3 RBC (3.65-5.03) M/mm3 Hgb (11.8-15.2) gm/dl Hct (35.5-45.6) % MCH (28-32) pg MCHC (32-34) % RDW (13.2-15.2) % Plt Count (140-440) K/mm3 Seg Neuts % (Manual) (40.0-70.0) % Lymphocytes % (Manual) (13.4-35.0) % Seg Neutrophils # Man (1.8-7.7) K/mm3 Sodium (137-145) mmol/L Carbon Dioxide (22-30) mmol/L BUN (9-20) mg/dL Creatinine (0.8-1.5) mg/dL Glucose (75-100) mg/dL POC Glucose 338 H (70-105) Calcium (8.4-10.2) mg/dL Phosphorus (2.5-4.5) mg/dL Iron (49-181) ug/dL TIBC (250-450) mcg/dL Transferrin (180-329) mg/dl Ferritin (13.0-400.0) ng/mL Vitamin B12 (211-911) pg/mL Folate (7.3-26.0) ng/mL Crossmatch
== END 2017-11-16 21:30 | disposition left against medical advice (07) | DRG 872 ==
LOC: ED 01:58 → 4A 07:44 → 3A 08:55
PROVIDERS: ADMIT Internal Medicine; ATTEND Internal Medicine
PROC: 30233N1 Transfusion of Nonautologous Red Blood Cells into Peripheral Vein, Percutaneous Approach (ICD-10-PCS; principal; 2017-11-13)
DX: A41.9 Sepsis, unspecified organism (principal); N17.9 Acute kidney failure, unspecified; L03.115 Cellulitis of right lower limb; M86.8X7 Other osteomyelitis, ankle and foot; M76.51 Patellar tendinitis, right knee; E66.9 Obesity, unspecified; E11.65 Type 2 diabetes mellitus with hyperglycemia; E11.69 Type 2 diabetes mellitus with other specified complication; E11.21 Type 2 diabetes mellitus with diabetic nephropathy; E11.22 Type 2 diabetes mellitus with diabetic chronic kidney disease; N18.9 Chronic kidney disease, unspecified; D64.9 Anemia, unspecified; I12.9 Hypertensive chronic kidney disease with stage 1 through stage 4 chronic kidney disease, or unspecified chronic kidney disease; Z83.3 Family history of diabetes mellitus; Z82.49 Family history of ischemic heart disease and other diseases of the circulatory system; Z89.421 Acquired absence of other right toe(s); Z89.411 Acquired absence of right great toe; Z89.412 Acquired absence of left great toe; Z89.422 Acquired absence of other left toe(s); Z79.84 Long term (current) use of oral hypoglycemic drugs; Z68.36 Body mass index [BMI] 36.0-36.9, adult
CPT/HCPCS: 36415; 73721; 76770; 80048; 80053; 80061; 80202; 81001; 82140; 82248; 82550; 82570; 82607; 82728; 82747; 82805; 82962; 83010; 83036; 83520; 83550; 83615; 84100; 84156; 84165; 84300; 84484; 84550; 85007; 85025; 85027; 85652; 86021; 86038; 86140; 86160; 86706; 86803; 86850; 86880; 86900; 86901; 86920; 87040; 87086; 87116; 87806; 93005; 93010; 96361; 96374; 96375; 99291; J0696; J1644; J1815; J2270; J2405; J2543; J2920; J3370; J7030; J7040; J7050; P9016

== ENCOUNTER 2017-12-03 08:04 | Day surgery (SDC) | payer MEDICARE ==
--- NOTE | 2017-12-03 10:42 | Ultrasound Report ---
ULTRASOUND ARTHROCENTESIS LARGE JOINT RIGHT HISTORY: Joint pain. DESCRIPTION OF PROCEDURE: Informed consent was obtained. A sterile technique was utilized. 1% lidocaine for skin anesthesia. Using ultrasound guidance, a 16-gauge needle was advanced into a large complex right knee effusion. There was spontaneous return of slightly brown cloudy fluid. 170 cc of fluid were aspirated. Samples were saved for laboratory analysis if needed. The patient tolerated the procedure without difficulty. IMPRESSION: Successful ultrasound guided arthrocentesis of the right knee.
--- NOTE | 2017-12-03 10:45 | Short Stay Summary ---
Short Stay Documentation Date of service: 12/03/17 - History Principal diagnosis: right knee effusion H&P: obtained from office - Allergies and Medications Current Medications: Allergies No Known Allergies Allergy (Unverified 05/06/13 07:08) Home Medications Medication Instructions Recorded Confirmed Last Taken Type Cholestyramine (with Sugar) 4 gm PO BID 12/03/17 12/03/17 12/02/17 History [Questran] 4gm Clindamycin [Clindamycin CAP] 150 mg PO TID 12/03/17 12/03/17 12/02/17 History 150mg Insulin Aspart Prot/Aspart(Nf) 15 units SQ TID 12/03/17 12/03/17 12/02/17 History [NovoLOG Mix 70/30 VIAL] 15 units traMADol [Ultram 50 MG tab] 50 mg PO BID PRN 12/03/17 12/03/17 11/30/17 History 50mg - Physical exam General appearance: no acute distress Extremities: abnormal (swollen right knee, no erythemia) - Brief post op/procedure progress note Date of procedure: 12/03/17 Pre-op diagnosis: right knee effusion Post-op diagnosis: same Procedure: US arthrocentesis Anesthesia: local Findings: large complex right knee effusion Surgeon: ELLEN VALDOVINOS Estimated blood loss: none Pathology: list (samples saved for lab but no lab orders from ordering MD) Condition: stable - Hospital course Hospital course: uneventful - Disposition Condition at discharge: Good Disposition: DC-01 TO HOME OR SELFCARE Short Stay Discharge Plan Follow up with: MIGUEL BENOIT DO [Primary Care Provider] - 7 Days
[2017-12-03 12:22] VITALS: BP 163/83
== END 2017-12-03 08:05 | disposition home or self-care (01) ==
LOC: CATHLABREC 08:04
PROVIDERS: ATTEND Internal Medicine Hematology & Oncology
DX: M25.461 Effusion, right knee (principal); E11.9 Type 2 diabetes mellitus without complications; Z79.4 Long term (current) use of insulin; Z79.899 Other long term (current) drug therapy
CPT/HCPCS: 76942; 87116; 88112

== ENCOUNTER 2017-12-28 10:45 | Day surgery (SDC) | payer MEDICARE ==
[~2017-12-28 10:45] MED LIST: NACL 0.9% 1000 ML 1,000 ML IV SCH
--- NOTE | 2017-12-28 11:06 | Short Stay Summary ---
Short Stay Documentation Date of service: 12/28/17 Narrative H&P: 42 year old referred for GI work up of anemia which was being treated with iron supplementation and which required blood transfusions. Per chart review, that patient reported having had colon polyps in the late , and denied any gross bleeding or other GI/abdominal symptoms. The [facility] provider scheduled patient for same-day EGD and colonoscopy and prescribed omeprazole. Subsequently his fecal occult blood test returned negative, and his iron studies returned showing elevated serum iron level and elevated serum ferritin level at 1585. Today patient describes problems with intermittent vomiting, including last night while taking his bowel prep. He confirms that he thinks he had polyps in late or early although he cannot recall being told that they were removed. - History Principal diagnosis: anemia, personal history colon polyps H&P: obtained from office - Allergies and Medications Current Medications: Allergies No Known Allergies Allergy (Verified 12/23/17 11:45) Home Medications Medication Instructions Recorded Confirmed Last Taken Type Cholestyramine (with Sugar) 4 gm PO BID 12/03/17 12/03/17 12/02/17 History [Questran] 4gm Clindamycin [Clindamycin CAP] 150 mg PO TID 12/03/17 12/03/17 12/02/17 History 150mg Insulin Aspart Prot/Aspart(Nf) 15 units SQ TID 12/03/17 12/03/17 12/02/17 History [NovoLOG Mix 70/30 VIAL] 15 units traMADol [Ultram 50 MG tab] 50 mg PO BID PRN 12/03/17 12/03/17 11/30/17 History 50mg Active Medications Sodium Chloride (Nacl 0.9% 1000 Ml) 1,000 mls @ 50 mls/hr IV DIRECT DOTTIE - Hospital course Hospital course: Uneventful EGD and colonoscopy. - Disposition Condition at discharge: Good Disposition: DC-01 TO HOME OR SELFCARE - Discharge Diagnoses (1) Personal history of colonic polyps Status: Acute (2) Gastritis Status: Acute (3) Hiatal hernia Status: Acute (4) Internal hemorrhoids Status: Acute (5) Anemia Status: Chronic Comment: Iron and ferritin level are elevated. Short Stay Discharge Plan Activity: other (no driving today) Diet: other (may resume usual diet) Additional Instructions: 1. Patient to call for biopsy results in 14 days if he has not heard from us by then. 2. Patient advised to repeat colonoscopy in 5 years in view of his stated previous history of colon polyps, and that if he indeed had polyps, his first degree relatives (siblings and children) should begin their colon screening when they are 10 years younger than he was at the time when he was first found to have polyps. 3. Patient advised that his iron levels are high and he likely does not require iron supplementation. 4. Patient advised that he may benefit from evaluation by a drop crew laborer. Follow up with: MIGUEL BENOIT DO [Primary Care Provider] - 7 Days
[2017-12-28] MEDS ORDERED: WATER FOR IRRIG STERILE IR ONE (11:40)
[2017-12-28] MEDS ORDERED: VERSED ONE (11:44)
[2017-12-28] MEDS ORDERED: DIPRIVAN 10 MG/ML IV ONE ×2 (11:44)
--- NOTE | 2017-12-28 11:50 | Anesthesia Day of Surgery ---
Anesthesia Day of Surgery - Day of Surgery Patient Examined: Yes Patient H&P Reviewed: Yes Patient is NPO: Yes Beta Blockers: No
--- NOTE | 2017-12-28 11:51 | Anesthesia Consultation ---
Anesthesia Consult and Med Hx - Airway Anesthetic Teeth Evaluation: Good, Partials (upper partial loose, pt aware of risks involved;possibility of permanent partial coming out ) ROM Head & Neck: Adequate Mental/Hyoid Distance: Adequate Mallampati Class: Class II Intubation Access Assessment: Probably Good - Pulmonary Exam CTA: Yes - Cardiac Exam Cardiac Exam: No Murmur - Pre-Operative Health Status ASA Pre-Surgery Classification: ASA3 Proposed Anesthetic Plan: MAC - Pulmonary Hx Asthma: No COPD: No Hx Pneumonia: No - Cardiovascular System Hx Hypertension: Yes Hx Pacemaker: No Hx Internal Defibrillator: No Hx Peripheral Vascular Disease: Yes (pt states he was seen at [facility]) - Central Nervous System Hx Psychiatric Problems: No - Endocrine Hx End Stage Renal Disease: No Hx Insulin Dependent Diabetes: Yes (admitted in DKA) - Hematic Hx Anemia: Yes - Other Systems Hx Cancer: No Hx Obesity: Yes
--- NOTE | 2017-12-28 12:42 | Operative Report ---
Operative Report Operative Report: Date: 12/28/2017 Preprocedure diagnoses: Anemia requiring transfusion, vomiting, stated personal history of colon polyps Postprocedure diagnoses: Possible mild gastritis, internal hemorrhoids Procedures: Esophagogastroduodenoscopy with biopsy, and colonoscopy Medication: Monitored anesthesia care Estimated blood loss: None Complication: None evident Description of procedures: The indications, techniques, dental complications and alternatives had been discussed with him in detail at his office visit prior to the date of the exam, and were completely reviewed again with him on the morning of the exam. His questions were encouraged and answered any granted consent for esophagogastroduodenoscopy and for colonoscopy. He was placed in the left lateral decubitus position and sedated by anesthesia services. The tip of a [employer] video panendoscope was passed without difficulty through the pharynx and into the esophagus which appeared normal throughout its entire length. A very small hiatal hernia was traversed as the endoscope was advanced into the stomach. Once in the stomach, air was insufflated. The stomach distended well, gastric folds were normal in thickness and contour, the pylorus was patent and there was no retained gastric content. The mucosal pattern in the antrum suggesting mild hemosiderosis or possibly gastritis, and biopsies were obtained for histology. The remainder of the gastric mucosa appeared normal. No pathology was seen in the duodenal bulb , the second or third portions of duodenum. Retroflexion in the stomach disclosed no pathology involving the lesser curvature or fundus. The cardia was remarkable only for the anatomic defect associated with the small hiatal hernia. The endoscope was then straightened and withdrawn, with repeat examination of the duodenum, stomach, esophagogastric junction and esophagus. There were no additional findings. The procedure was very well tolerated. He was then placed in position for colonoscopy. The anal sphincter was digitally dilated. The tip of a [employer] video colonoscope was inserted through the anal sphincter and into the rectal vault. It was advanced proximally under continuous visualization of the lumen to the cecum without difficulty. The prep was adequate. Lavage was employed as needed. No pathology was found in the cecum. The appendiceal orifice and ileocecal valve appeared normal. Cannulation of the valve revealed normal terminal ileum. The instrument was withdrawn back into the cecum, and then slowly withdrawn, with careful circumferential examination of the colonic mucosa. No pathology was found in the ascending colon, hepatic flexure, transverse colon, splenic flexure, descending colon, sigmoid colon or the rectum from the forward view. Retroflexion in the rectum revealed very small internal hemorrhoids. The instrument was straightened and withdrawn. The procedure was very well tolerated. He was then monitored in the recovery area of the GI lab to ensure stability prior to his release. See the outpatient record for details regarding instructions to patient, medications and plans for follow-up. Endoscopic assessments 1. Possible mild antral gastritis versus focal hemosiderosis or perhaps artifact 2. Very small hiatal hernia 3. Otherwise normal upper endoscopy 4. Very small internal hemorrhoids 5. Otherwise normal colonoscopy including terminal ileum Pedro Nolan M.D. Dictated 12/28/2017 at 12:36 PM
[2017-12-28 12:56] VITALS: BP 145/93
== END 2017-12-28 10:46 | disposition home or self-care (01) ==
LOC: GIO 10:45
PROVIDERS: ATTEND Internal Medicine Gastroenterology
DX: Z12.11 Encounter for screening for malignant neoplasm of colon (principal); K29.50 Unspecified chronic gastritis without bleeding; K64.8 Other hemorrhoids; K44.9 Diaphragmatic hernia without obstruction or gangrene; I10 Essential (primary) hypertension; E66.9 Obesity, unspecified; E11.9 Type 2 diabetes mellitus without complications; E11.51 Type 2 diabetes mellitus with diabetic peripheral angiopathy without gangrene; I73.9 Peripheral vascular disease, unspecified; Z98.890 Other specified postprocedural states; Z86.010 Personal history of colon polyps
CPT/HCPCS: 43239; 45378; 82962; 88305; 88342; J2250; J2704; J7030

== ENCOUNTER 2018-02-19 10:28 | Outpatient (CLI) | payer MEDICARE ==
[2018-02-19] MEDS ORDERED: XYLOCAINE TOPICAL 4% TP ONE ×2 (10:45→15:19)
== END 2018-02-19 10:29 | disposition home or self-care (01) ==
LOC: WOUND 10:28
PROVIDERS: ATTEND Surgery
DX: E11.621 Type 2 diabetes mellitus with foot ulcer (principal); L97.521 Non-pressure chronic ulcer of other part of left foot limited to breakdown of skin; L97.511 Non-pressure chronic ulcer of other part of right foot limited to breakdown of skin; E11.40 Type 2 diabetes mellitus with diabetic neuropathy, unspecified
CPT/HCPCS: 11042; G0463

== ENCOUNTER 2018-03-11 12:56 | Outpatient (CLI) | payer MEDICARE ==
--- NOTE | 2018-03-11 13:53 | XRay Report ---
RIGHT TOES, 2 views: History: Osteomyelitis of second toe. The great toe has been previously amputated. The remaining bony structures are mildly demineralized. There appears to be soft tissue ulceration and swelling of the distal second toe. The distal phalanx of the second toe appears irregular with possible bony destruction. Osteomyelitis cannot be excluded. The remaining bony structures are intact. No erosive joint pathology is appreciated. IMPRESSION: Probable osteomyelitis of the distal phalanx of the second toe.
== END 2018-03-11 12:57 | disposition home or self-care (01) ==
LOC: XRAY 12:56
PROVIDERS: ATTEND Surgery
DX: M86.171 Other acute osteomyelitis, right ankle and foot (principal); I10 Essential (primary) hypertension; E11.9 Type 2 diabetes mellitus without complications; I73.9 Peripheral vascular disease, unspecified; E66.9 Obesity, unspecified

== ENCOUNTER 2018-03-12 09:41 | Outpatient (CLI) | payer MEDICARE ==
[2018-03-12] MEDS ORDERED: AD OINTMENT TP ONE (10:01)
[2018-03-12] MEDS ORDERED: AD OINTMENT TP PRN (10:09)
== END 2018-03-12 09:42 | disposition home or self-care (01) ==
LOC: WOUND 09:41
PROVIDERS: ATTEND Surgery
DX: E11.621 Type 2 diabetes mellitus with foot ulcer (principal); L97.511 Non-pressure chronic ulcer of other part of right foot limited to breakdown of skin; L97.521 Non-pressure chronic ulcer of other part of left foot limited to breakdown of skin; E11.40 Type 2 diabetes mellitus with diabetic neuropathy, unspecified
CPT/HCPCS: A6250

== ENCOUNTER 2018-03-26 09:41 | Outpatient (CLI) | payer MEDICARE ==
[2018-03-26] MEDS ORDERED: SILVER NITRATE TP ONE ×2 (10:51→11:56)
== END 2018-03-26 09:42 | disposition home or self-care (01) ==
LOC: WOUND 09:41
PROVIDERS: ATTEND Surgery
DX: E11.621 Type 2 diabetes mellitus with foot ulcer (principal); L97.521 Non-pressure chronic ulcer of other part of left foot limited to breakdown of skin; E11.40 Type 2 diabetes mellitus with diabetic neuropathy, unspecified

== ENCOUNTER 2018-04-02 09:39 | Outpatient (CLI) | payer MEDICARE | END 2018-04-02 09:40 | disposition home or self-care (01) | LOC: WOUND 09:39 | PROVIDERS: ATTEND Surgery | DX: E11.621 Type 2 diabetes mellitus with foot ulcer (principal); L97.521 Non-pressure chronic ulcer of other part of left foot limited to breakdown of skin; L97.511 Non-pressure chronic ulcer of other part of right foot limited to breakdown of skin; E11.40 Type 2 diabetes mellitus with diabetic neuropathy, unspecified ==

== ENCOUNTER 2018-07-23 09:50 | Outpatient (CLI) | payer MEDICARE | END 2018-07-23 09:51 | disposition home or self-care (01) | LOC: WOUND 09:50 ==

== ENCOUNTER 2018-09-03 08:56 | Outpatient (CLI) | payer MEDICARE ==
[2018-09-03] MEDS ORDERED: SILVER NITRATE TP ONE (10:00)
== END 2018-09-03 08:57 | disposition home or self-care (01) ==
LOC: WOUND 08:56
PROVIDERS: ATTEND Surgery
DX: E11.621 Type 2 diabetes mellitus with foot ulcer (principal); L97.522 Non-pressure chronic ulcer of other part of left foot with fat layer exposed; L84 Corns and callosities; S81.819A Laceration without foreign body, unspecified lower leg, initial encounter; L97.511 Non-pressure chronic ulcer of other part of right foot limited to breakdown of skin; E11.40 Type 2 diabetes mellitus with diabetic neuropathy, unspecified; X58.XXXA Exposure to other specified factors, initial encounter; Y93.89 Activity, other specified; Y92.89 Other specified places as the place of occurrence of the external cause; Y99.8 Other external cause status

== ENCOUNTER 2018-09-10 10:36 | Outpatient (CLI) | payer MEDICARE ==
[2018-09-10] MEDS ORDERED: SILVER NITRATE TP ONE (11:30)
[2018-09-11] MEDS ORDERED: AD OINTMENT TP SCH (11:30)
== END 2018-09-10 10:37 | disposition home or self-care (01) ==
LOC: WOUND 10:36
PROVIDERS: ATTEND Surgery
DX: E11.621 Type 2 diabetes mellitus with foot ulcer (principal); L97.522 Non-pressure chronic ulcer of other part of left foot with fat layer exposed; L84 Corns and callosities; S81.811D Laceration without foreign body, right lower leg, subsequent encounter; E11.40 Type 2 diabetes mellitus with diabetic neuropathy, unspecified; X58.XXXD Exposure to other specified factors, subsequent encounter

== ENCOUNTER 2018-09-16 07:50 | Outpatient (CLI) | payer MEDICARE ==
--- NOTE | 2018-09-17 17:41 | Vascular Lab Report ---
PROCEDURE: VL VENOUS DUPLEX LE BILAT TECHNIQUE: Ultrasound deep venous system bilateral lower extremities HISTORY: Non-pressure chronic ulcer of other part of right foot limited to COMPARISONS: FINDINGS: Within the deep venous system of the lower extremities bilaterally from the common femoral through th e visualized proximal calf veins there is normal sonographic appearance. Normal flow seen on pulsed a nd color Doppler evaluation Note is made of deep venous reflux within the right common and left common femoral veins no superfici al venous reflux noted in the visualized superficial femoral veins prominent lymph nodes noted at bot h groins with normal fatty pankaj.. There is subcutaneous edema noted right calf IMPRESSION: No evidence for deep venous thrombosis Reflux noted in the common femoral veins Subcutaneous edema noted in the calf This document is electronically signed by Estuardo Long MD., September 17 2018 05:38:21 PM ET
--- NOTE | 2018-09-18 01:45 | Vascular Lab Report ---
PROCEDURE: LEFT LOWER EXTREMITY ARTERIAL DUPLEX DOPPLER TECHNIQUE: Duplex Doppler ultrasound of either the bilateral lower extremity arteries or arterial by pass grafts was performed with image documentation. HISTORY: There are wounds identified in both feet COMPARISONS: None . FINDINGS: Arterial waveforms: Triphasic . Thrombus/Stenosis: There is no evidence of hemodynamically significant stenosis in the arterial stru ctures of the lower extremities. There is moderate atherosclerotic plaque formation identified in the lower extremity arterial structures . Color signal: Normal . Significant segmental velocity differential: None . Arterial bypass graft: Not present . IMPRESSION: No evidence of significant arterial insufficiency in the bilateral lower extremities. This document is electronically signed by Emma Clark DO., September 18 2018 01:43:10 AM ET
== END 2018-09-16 07:51 | disposition home or self-care (01) ==
LOC: VAS 07:50
PROVIDERS: ATTEND Surgery
DX: L97.511 Non-pressure chronic ulcer of other part of right foot limited to breakdown of skin (principal); R60.0 Localized edema; I10 Essential (primary) hypertension; E66.9 Obesity, unspecified; E11.9 Type 2 diabetes mellitus without complications
CPT/HCPCS: 93925; 93970

== ENCOUNTER 2018-09-17 08:56 | Outpatient (CLI) | payer MEDICARE ==
[2018-09-17] MEDS ORDERED: XYLOCAINE TOPICAL 4% TP ONE (09:30)
[2018-09-17] MEDS ORDERED: SODIUM CHLORIDE FLUSH SYRINGE 10 ML IV PRN (09:38)
[2018-09-17] MEDS ORDERED: AD OINTMENT TP SCH (10:00)
== END 2018-09-17 08:57 | disposition home or self-care (01) ==
LOC: WOUND 08:56
PROVIDERS: ATTEND Surgery
DX: E11.621 Type 2 diabetes mellitus with foot ulcer (principal); L97.522 Non-pressure chronic ulcer of other part of left foot with fat layer exposed; L97.511 Non-pressure chronic ulcer of other part of right foot limited to breakdown of skin; E11.40 Type 2 diabetes mellitus with diabetic neuropathy, unspecified
CPT/HCPCS: A6250

== ENCOUNTER 2018-09-24 09:36 | Outpatient (CLI) | payer MEDICARE ==
[2018-09-24] MEDS ORDERED: SILVER NITRATE TP ONE (10:36)
[2018-09-24] MEDS ORDERED: AD OINTMENT TP PRN (10:36)
== END 2018-09-24 09:37 | disposition home or self-care (01) ==
LOC: WOUND 09:36
PROVIDERS: ATTEND Surgery
DX: E11.621 Type 2 diabetes mellitus with foot ulcer (principal); L97.522 Non-pressure chronic ulcer of other part of left foot with fat layer exposed; L97.511 Non-pressure chronic ulcer of other part of right foot limited to breakdown of skin; L84 Corns and callosities; E11.40 Type 2 diabetes mellitus with diabetic neuropathy, unspecified
CPT/HCPCS: A6250

== ENCOUNTER 2018-09-28 13:06 | Outpatient (CLI) | payer MEDICARE | END 2018-09-28 13:07 | disposition home or self-care (01) | LOC: WOUND 13:06 | PROVIDERS: ATTEND Surgery | DX: E11.621 Type 2 diabetes mellitus with foot ulcer (principal); L97.521 Non-pressure chronic ulcer of other part of left foot limited to breakdown of skin; L84 Corns and callosities; S91.111D Laceration without foreign body of right great toe without damage to nail, subsequent encounter; S91.114D Laceration without foreign body of right lesser toe(s) without damage to nail, subsequent encounter; E11.40 Type 2 diabetes mellitus with diabetic neuropathy, unspecified; X58.XXXD Exposure to other specified factors, subsequent encounter ==

== ENCOUNTER 2018-10-01 09:20 | Outpatient (CLI) | payer MEDICARE | END 2018-10-01 09:21 | disposition home or self-care (01) | LOC: WOUND 09:20 | PROVIDERS: ATTEND Surgery | DX: E11.621 Type 2 diabetes mellitus with foot ulcer (principal); L97.522 Non-pressure chronic ulcer of other part of left foot with fat layer exposed; L97.512 Non-pressure chronic ulcer of other part of right foot with fat layer exposed; L84 Corns and callosities; E11.40 Type 2 diabetes mellitus with diabetic neuropathy, unspecified ==

== ENCOUNTER 2018-10-05 11:42 | Outpatient (CLI) | payer MEDICARE | END 2018-10-05 11:43 | disposition home or self-care (01) | LOC: WOUND 11:42 | PROVIDERS: ATTEND Surgery | DX: E11.621 Type 2 diabetes mellitus with foot ulcer (principal); L97.522 Non-pressure chronic ulcer of other part of left foot with fat layer exposed; L84 Corns and callosities; S91.111D Laceration without foreign body of right great toe without damage to nail, subsequent encounter; S91.114D Laceration without foreign body of right lesser toe(s) without damage to nail, subsequent encounter; E11.40 Type 2 diabetes mellitus with diabetic neuropathy, unspecified; X58.XXXD Exposure to other specified factors, subsequent encounter ==

== ENCOUNTER 2018-10-08 09:34 | Outpatient (CLI) | payer MEDICARE ==
[2018-10-08] MEDS ORDERED: XYLOCAINE TOPICAL 4% TP ONE (09:44)
[2018-10-08] MEDS ORDERED: SODIUM CHLORIDE FLUSH SYRINGE 10 ML IV PRN (09:45)
[2018-10-08] MEDS ORDERED: AD OINTMENT TP SCH (10:00)
== END 2018-10-08 09:35 | disposition home or self-care (01) ==
LOC: WOUND 09:34
PROVIDERS: ATTEND Surgery
DX: E11.621 Type 2 diabetes mellitus with foot ulcer (principal); L97.522 Non-pressure chronic ulcer of other part of left foot with fat layer exposed; L84 Corns and callosities; E11.40 Type 2 diabetes mellitus with diabetic neuropathy, unspecified

== ENCOUNTER 2018-10-12 11:12 | Outpatient (CLI) | payer MEDICARE ==
[2018-10-12] MEDS ORDERED: AD OINTMENT TP SCH (12:00)
== END 2018-10-12 11:13 | disposition home or self-care (01) ==
LOC: WOUND 11:12
PROVIDERS: ATTEND Surgery
DX: E11.621 Type 2 diabetes mellitus with foot ulcer (principal); L97.521 Non-pressure chronic ulcer of other part of left foot limited to breakdown of skin; L84 Corns and callosities; L97.511 Non-pressure chronic ulcer of other part of right foot limited to breakdown of skin; E11.40 Type 2 diabetes mellitus with diabetic neuropathy, unspecified
CPT/HCPCS: A6250

== ENCOUNTER 2018-10-19 09:39 | Outpatient (CLI) | payer MEDICARE | END 2018-10-19 09:40 | disposition home or self-care (01) | LOC: WOUND 09:39 | PROVIDERS: ATTEND Surgery | DX: E11.621 Type 2 diabetes mellitus with foot ulcer (principal); L97.521 Non-pressure chronic ulcer of other part of left foot limited to breakdown of skin; L97.511 Non-pressure chronic ulcer of other part of right foot limited to breakdown of skin; E11.40 Type 2 diabetes mellitus with diabetic neuropathy, unspecified; L84 Corns and callosities ==

== ENCOUNTER 2018-10-26 08:24 | Outpatient (CLI) | payer MEDICARE | END 2018-10-26 08:25 | disposition home or self-care (01) | LOC: WOUND 08:24 | PROVIDERS: ATTEND Surgery | DX: E11.621 Type 2 diabetes mellitus with foot ulcer (principal); L97.521 Non-pressure chronic ulcer of other part of left foot limited to breakdown of skin; L97.511 Non-pressure chronic ulcer of other part of right foot limited to breakdown of skin; E11.40 Type 2 diabetes mellitus with diabetic neuropathy, unspecified; L84 Corns and callosities ==

== ENCOUNTER 2018-11-01 13:27 | Outpatient (CLI) | payer MEDICARE ==
[2018-11-01] MEDS ORDERED: XYLOCAINE TOPICAL 4% TP ONE (14:00)
== END 2018-11-01 13:28 | disposition home or self-care (01) ==
LOC: WOUND 13:27
PROVIDERS: ATTEND Surgery
DX: E11.621 Type 2 diabetes mellitus with foot ulcer (principal); L97.511 Non-pressure chronic ulcer of other part of right foot limited to breakdown of skin; L97.521 Non-pressure chronic ulcer of other part of left foot limited to breakdown of skin; E11.622 Type 2 diabetes mellitus with other skin ulcer; L97.812 Non-pressure chronic ulcer of other part of right lower leg with fat layer exposed; E11.40 Type 2 diabetes mellitus with diabetic neuropathy, unspecified; L84 Corns and callosities

== ENCOUNTER 2018-11-24 11:27 | Outpatient (CLI) | payer MEDICARE ==
[2018-11-24] MEDS ORDERED: SILVER NITRATE TP ONE (11:56)
== END 2018-11-24 11:28 | disposition home or self-care (01) ==
LOC: WOUND 11:27
PROVIDERS: ATTEND Surgery
DX: E11.621 Type 2 diabetes mellitus with foot ulcer (principal); L97.511 Non-pressure chronic ulcer of other part of right foot limited to breakdown of skin; L97.522 Non-pressure chronic ulcer of other part of left foot with fat layer exposed; E11.622 Type 2 diabetes mellitus with other skin ulcer; L97.812 Non-pressure chronic ulcer of other part of right lower leg with fat layer exposed; E11.40 Type 2 diabetes mellitus with diabetic neuropathy, unspecified; L84 Corns and callosities

== ENCOUNTER 2018-11-26 13:52 | Outpatient (CLI) | payer MEDICARE | END 2018-11-26 13:53 | disposition home or self-care (01) | LOC: WOUND 13:52 | PROVIDERS: ATTEND Surgery | DX: E11.621 Type 2 diabetes mellitus with foot ulcer (principal); L97.511 Non-pressure chronic ulcer of other part of right foot limited to breakdown of skin; L97.522 Non-pressure chronic ulcer of other part of left foot with fat layer exposed; E11.622 Type 2 diabetes mellitus with other skin ulcer; L97.812 Non-pressure chronic ulcer of other part of right lower leg with fat layer exposed; E11.40 Type 2 diabetes mellitus with diabetic neuropathy, unspecified; L84 Corns and callosities ==

== ENCOUNTER 2018-11-30 11:19 | Outpatient (CLI) | payer MEDICARE | END 2018-11-30 11:20 | disposition home or self-care (01) | LOC: WOUND 11:19 | PROVIDERS: ATTEND Surgery | DX: E11.621 Type 2 diabetes mellitus with foot ulcer (principal); L97.511 Non-pressure chronic ulcer of other part of right foot limited to breakdown of skin; L97.522 Non-pressure chronic ulcer of other part of left foot with fat layer exposed; E11.622 Type 2 diabetes mellitus with other skin ulcer; L97.812 Non-pressure chronic ulcer of other part of right lower leg with fat layer exposed; E11.40 Type 2 diabetes mellitus with diabetic neuropathy, unspecified; L84 Corns and callosities | CPT/HCPCS: 99213; G0463 ==

== ENCOUNTER 2018-12-03 11:37 | Outpatient (CLI) | payer MEDICARE | END 2018-12-03 11:38 | disposition home or self-care (01) | LOC: MRI 11:37 | PROVIDERS: ATTEND Surgery | DX: E11.621 Type 2 diabetes mellitus with foot ulcer (principal); I10 Essential (primary) hypertension | CPT/HCPCS: 36415; 82565; 84520 ==

== ENCOUNTER 2018-12-07 14:20 | Outpatient (CLI) | payer MEDICARE | END 2018-12-07 14:21 | disposition home or self-care (01) | LOC: WOUND 14:20 | PROVIDERS: ATTEND Surgery | DX: E11.621 Type 2 diabetes mellitus with foot ulcer (principal); L97.511 Non-pressure chronic ulcer of other part of right foot limited to breakdown of skin; L97.522 Non-pressure chronic ulcer of other part of left foot with fat layer exposed; E11.622 Type 2 diabetes mellitus with other skin ulcer; L97.812 Non-pressure chronic ulcer of other part of right lower leg with fat layer exposed; E11.40 Type 2 diabetes mellitus with diabetic neuropathy, unspecified; L84 Corns and callosities ==

== ENCOUNTER 2018-12-09 11:48 | Outpatient (CLI) | payer MEDICARE | END 2018-12-09 11:49 | disposition home or self-care (01) | LOC: WOUND 11:48 | PROVIDERS: ATTEND Surgery | DX: E11.621 Type 2 diabetes mellitus with foot ulcer (principal); L97.511 Non-pressure chronic ulcer of other part of right foot limited to breakdown of skin; L97.522 Non-pressure chronic ulcer of other part of left foot with fat layer exposed; E11.40 Type 2 diabetes mellitus with diabetic neuropathy, unspecified; L84 Corns and callosities ==

== ENCOUNTER 2018-12-16 11:08 | Outpatient (CLI) | payer MEDICARE | END 2018-12-16 11:09 | disposition home or self-care (01) | LOC: WOUND 11:08 | PROVIDERS: ATTEND Surgery | DX: E11.621 Type 2 diabetes mellitus with foot ulcer (principal); L97.511 Non-pressure chronic ulcer of other part of right foot limited to breakdown of skin; L97.522 Non-pressure chronic ulcer of other part of left foot with fat layer exposed; E11.40 Type 2 diabetes mellitus with diabetic neuropathy, unspecified; L84 Corns and callosities ==

== ENCOUNTER 2018-12-23 11:17 | Outpatient (CLI) | payer MEDICARE ==
[2018-12-23] MEDS ORDERED: SILVER NITRATE TP ONE (12:18)
== END 2018-12-23 11:18 | disposition home or self-care (01) ==
LOC: WOUND 11:17
PROVIDERS: ATTEND Surgery
DX: E11.622 Type 2 diabetes mellitus with other skin ulcer (principal); L97.212 Non-pressure chronic ulcer of right calf with fat layer exposed; L97.221 Non-pressure chronic ulcer of left calf limited to breakdown of skin; E11.621 Type 2 diabetes mellitus with foot ulcer; L97.522 Non-pressure chronic ulcer of other part of left foot with fat layer exposed; E11.40 Type 2 diabetes mellitus with diabetic neuropathy, unspecified
CPT/HCPCS: 97597; 97598

== ENCOUNTER 2018-12-27 13:32 | Outpatient (CLI) | payer MEDICARE | END 2018-12-27 13:33 | disposition home or self-care (01) | LOC: WOUND 13:32 | PROVIDERS: ATTEND Surgery | DX: E11.622 Type 2 diabetes mellitus with other skin ulcer (principal); L97.212 Non-pressure chronic ulcer of right calf with fat layer exposed; L97.221 Non-pressure chronic ulcer of left calf limited to breakdown of skin; E11.621 Type 2 diabetes mellitus with foot ulcer; L97.522 Non-pressure chronic ulcer of other part of left foot with fat layer exposed; E11.40 Type 2 diabetes mellitus with diabetic neuropathy, unspecified; Q82.0 Hereditary lymphedema ==

== ENCOUNTER 2018-12-31 13:39 | Outpatient (CLI) | payer MEDICARE | END 2018-12-31 13:40 | disposition home or self-care (01) | LOC: WOUND 13:39 | PROVIDERS: ATTEND Surgery | DX: E11.621 Type 2 diabetes mellitus with foot ulcer (principal); L97.522 Non-pressure chronic ulcer of other part of left foot with fat layer exposed; E11.622 Type 2 diabetes mellitus with other skin ulcer; L97.212 Non-pressure chronic ulcer of right calf with fat layer exposed; L97.221 Non-pressure chronic ulcer of left calf limited to breakdown of skin; Q82.0 Hereditary lymphedema ==

== ENCOUNTER 2019-01-03 13:23 | Outpatient (CLI) | payer MEDICARE | END 2019-01-03 13:24 | disposition home or self-care (01) | LOC: WOUND 13:23 | PROVIDERS: ATTEND Surgery | DX: E11.621 Type 2 diabetes mellitus with foot ulcer (principal); L97.522 Non-pressure chronic ulcer of other part of left foot with fat layer exposed; E11.622 Type 2 diabetes mellitus with other skin ulcer; L97.212 Non-pressure chronic ulcer of right calf with fat layer exposed; L97.221 Non-pressure chronic ulcer of left calf limited to breakdown of skin; Q82.0 Hereditary lymphedema ==

== ENCOUNTER 2019-01-06 11:50 | Outpatient (CLI) | payer MEDICARE ==
[2019-01-06] MEDS ORDERED: SILVER NITRATE TP ONE ×2 (12:25→13:13)
[2019-01-06] MEDS ORDERED: SODIUM CHLORIDE FLUSH SYRINGE 10 ML IV PRN (12:52)
== END 2019-01-06 11:51 | disposition home or self-care (01) ==
LOC: WOUND 11:50
PROVIDERS: ATTEND Surgery
DX: E11.621 Type 2 diabetes mellitus with foot ulcer (principal); L97.522 Non-pressure chronic ulcer of other part of left foot with fat layer exposed; E11.622 Type 2 diabetes mellitus with other skin ulcer; L97.212 Non-pressure chronic ulcer of right calf with fat layer exposed; L97.221 Non-pressure chronic ulcer of left calf limited to breakdown of skin; Q82.0 Hereditary lymphedema
CPT/HCPCS: 15275; Q4196

== ENCOUNTER 2019-01-10 13:25 | Outpatient (CLI) | payer MEDICARE | END 2019-01-10 13:26 | disposition home or self-care (01) | LOC: WOUND 13:25 | PROVIDERS: ATTEND Surgery | DX: E11.621 Type 2 diabetes mellitus with foot ulcer (principal); L97.522 Non-pressure chronic ulcer of other part of left foot with fat layer exposed; E11.622 Type 2 diabetes mellitus with other skin ulcer; L97.212 Non-pressure chronic ulcer of right calf with fat layer exposed; L97.221 Non-pressure chronic ulcer of left calf limited to breakdown of skin; Q82.0 Hereditary lymphedema | CPT/HCPCS: 29445 ==

== ENCOUNTER 2019-01-13 09:06 | Outpatient (CLI) | payer MEDICARE ==
[2019-01-13] MEDS ORDERED: SODIUM CHLORIDE FLUSH SYRINGE 10 ML IV ONE (10:12)
[2019-01-13] MEDS ORDERED: SILVER NITRATE TP ONE (10:30)
== END 2019-01-13 09:07 | disposition home or self-care (01) ==
LOC: WOUND 09:06
PROVIDERS: ATTEND Surgery
DX: E11.621 Type 2 diabetes mellitus with foot ulcer (principal); L97.522 Non-pressure chronic ulcer of other part of left foot with fat layer exposed; E11.622 Type 2 diabetes mellitus with other skin ulcer; L97.212 Non-pressure chronic ulcer of right calf with fat layer exposed; L97.221 Non-pressure chronic ulcer of left calf limited to breakdown of skin; Q82.0 Hereditary lymphedema
CPT/HCPCS: 15275; 29581; Q4196

== ENCOUNTER 2019-01-17 13:10 | Outpatient (CLI) | payer MEDICARE | END 2019-01-17 13:11 | disposition home or self-care (01) | LOC: WOUND 13:10 | PROVIDERS: ATTEND Surgery | DX: E11.621 Type 2 diabetes mellitus with foot ulcer (principal); L97.522 Non-pressure chronic ulcer of other part of left foot with fat layer exposed; E11.622 Type 2 diabetes mellitus with other skin ulcer; L97.212 Non-pressure chronic ulcer of right calf with fat layer exposed; L97.221 Non-pressure chronic ulcer of left calf limited to breakdown of skin; Q82.0 Hereditary lymphedema | CPT/HCPCS: 29445 ==

== ENCOUNTER 2019-01-20 09:12 | Outpatient (CLI) | payer MEDICARE ==
[2019-01-20] MEDS ORDERED: SODIUM CHLORIDE FLUSH SYRINGE 10 ML IV ONE (10:30)
== END 2019-01-20 09:13 | disposition home or self-care (01) ==
LOC: WOUND 09:12
PROVIDERS: ATTEND Surgery
DX: E11.621 Type 2 diabetes mellitus with foot ulcer (principal); L97.522 Non-pressure chronic ulcer of other part of left foot with fat layer exposed; E11.622 Type 2 diabetes mellitus with other skin ulcer; L97.212 Non-pressure chronic ulcer of right calf with fat layer exposed; L97.221 Non-pressure chronic ulcer of left calf limited to breakdown of skin; Q82.0 Hereditary lymphedema
CPT/HCPCS: 15271; 29581; Q4196

== ENCOUNTER 2019-01-24 13:44 | Outpatient (CLI) | payer MEDICARE | END 2019-01-24 13:45 | disposition home or self-care (01) | LOC: WOUND 13:44 | PROVIDERS: ATTEND Surgery | DX: E11.621 Type 2 diabetes mellitus with foot ulcer (principal); L97.522 Non-pressure chronic ulcer of other part of left foot with fat layer exposed; E11.622 Type 2 diabetes mellitus with other skin ulcer; L97.212 Non-pressure chronic ulcer of right calf with fat layer exposed; L97.221 Non-pressure chronic ulcer of left calf limited to breakdown of skin; Q82.0 Hereditary lymphedema | CPT/HCPCS: 29581 ==

== ENCOUNTER 2019-01-27 09:05 | Outpatient (CLI) | payer MEDICARE ==
[2019-01-27] MEDS ORDERED: SILVER NITRATE TP ONE (10:00)
[2019-01-27] MEDS ORDERED: SODIUM CHLORIDE FLUSH SYRINGE 10 ML IV PRN (10:00)
== END 2019-01-27 09:06 | disposition home or self-care (01) ==
LOC: WOUND 09:05
PROVIDERS: ATTEND Surgery
DX: E11.621 Type 2 diabetes mellitus with foot ulcer (principal); L97.522 Non-pressure chronic ulcer of other part of left foot with fat layer exposed; E11.622 Type 2 diabetes mellitus with other skin ulcer; L97.212 Non-pressure chronic ulcer of right calf with fat layer exposed; L97.221 Non-pressure chronic ulcer of left calf limited to breakdown of skin; Q82.0 Hereditary lymphedema
CPT/HCPCS: 11042; 15275; 29581; Q4196

== ENCOUNTER 2019-02-03 08:27 | Outpatient (CLI) | payer MEDICARE ==
[2019-02-03] MEDS ORDERED: SODIUM CHLORIDE FLUSH SYRINGE 10 ML IV ONE (09:52)
[2019-02-03] MEDS ORDERED: SILVER NITRATE TP ONE (09:58)
== END 2019-02-03 08:28 | disposition home or self-care (01) ==
LOC: WOUND 08:27
PROVIDERS: ATTEND Surgery
DX: E11.621 Type 2 diabetes mellitus with foot ulcer (principal); L97.522 Non-pressure chronic ulcer of other part of left foot with fat layer exposed; E11.622 Type 2 diabetes mellitus with other skin ulcer; L97.212 Non-pressure chronic ulcer of right calf with fat layer exposed; L97.221 Non-pressure chronic ulcer of left calf limited to breakdown of skin; Q82.0 Hereditary lymphedema

== ENCOUNTER 2019-02-10 08:37 | Outpatient (CLI) | payer MEDICARE ==
[2019-02-10] MEDS ORDERED: XYLOCAINE TOPICAL 4% TP ONE (09:30)
[2019-02-10] MEDS ORDERED: SODIUM CHLORIDE FLUSH SYRINGE 10 ML IV ONE (09:30)
== END 2019-02-10 08:38 | disposition home or self-care (01) ==
LOC: WOUND 08:37
PROVIDERS: ATTEND Surgery
DX: E11.621 Type 2 diabetes mellitus with foot ulcer (principal); L97.422 Non-pressure chronic ulcer of left heel and midfoot with fat layer exposed; L97.521 Non-pressure chronic ulcer of other part of left foot limited to breakdown of skin; E11.622 Type 2 diabetes mellitus with other skin ulcer; L97.811 Non-pressure chronic ulcer of other part of right lower leg limited to breakdown of skin; L97.821 Non-pressure chronic ulcer of other part of left lower leg limited to breakdown of skin; I87.8 Other specified disorders of veins; Q82.0 Hereditary lymphedema
CPT/HCPCS: 15275; 29581; Q4196

== ENCOUNTER 2019-02-10 11:16 | Outpatient (CLI) | payer MEDICARE ==
--- NOTE | 2019-02-10 11:58 | XRay Report ---
CHEST 2 VIEWS INDICATION: FOR HBO CLEARANCE/L97.422NON PRESSURE CHRONIC ULCER OF LT.HEEL. COMPARISON: None FINDINGS: Support devices: None. Heart: Within normal limits. Lungs/pleura: No acute air space or interstitial disease. No pneumothorax. Additional findings: None. IMPRESSION: No acute findings. Signer Name: Cornell Morales Jr, MD Signed: 02/10/2019 11:54 AM Workstation Name: [id number]
== END 2019-02-10 11:17 | disposition home or self-care (01) ==
LOC: XRAY 11:16
PROVIDERS: ATTEND Surgery
DX: L97.422 Non-pressure chronic ulcer of left heel and midfoot with fat layer exposed (principal); Q82.0 Hereditary lymphedema; E11.621 Type 2 diabetes mellitus with foot ulcer; I10 Essential (primary) hypertension; E66.9 Obesity, unspecified; Z86.2 Personal history of diseases of the blood and blood-forming organs and certain disorders involving the immune mechanism
CPT/HCPCS: 71046

== ENCOUNTER 2019-02-17 09:27 | Outpatient (CLI) | payer MEDICARE ==
[2019-02-17] MEDS ORDERED: SODIUM CHLORIDE FLUSH SYRINGE 10 ML IV ONE (10:30)
== END 2019-02-17 09:28 | disposition home or self-care (01) ==
LOC: WOUND 09:27
PROVIDERS: ATTEND Surgery
DX: E11.621 Type 2 diabetes mellitus with foot ulcer (principal); L97.422 Non-pressure chronic ulcer of left heel and midfoot with fat layer exposed; L97.521 Non-pressure chronic ulcer of other part of left foot limited to breakdown of skin; I87.8 Other specified disorders of veins; Q82.0 Hereditary lymphedema
CPT/HCPCS: 11042; 15275; Q4196

== ENCOUNTER 2019-02-18 10:29 | Outpatient (CLI) | payer MEDICARE | END 2019-02-18 10:30 | disposition home or self-care (01) | LOC: WOUND 10:29 | PROVIDERS: ATTEND Surgery | DX: E11.621 Type 2 diabetes mellitus with foot ulcer (principal); L97.422 Non-pressure chronic ulcer of left heel and midfoot with fat layer exposed; Q82.0 Hereditary lymphedema; E11.40 Type 2 diabetes mellitus with diabetic neuropathy, unspecified | CPT/HCPCS: 82962 ==

== ENCOUNTER 2019-02-24 09:30 | Outpatient (CLI) | payer MEDICARE ==
[2019-02-24] MEDS ORDERED: SODIUM CHLORIDE FLUSH SYRINGE 10 ML IV ONE (10:22)
[2019-02-24] MEDS ORDERED: SILVER NITRATE TP ONE (10:30)
== END 2019-02-24 09:31 | disposition home or self-care (01) ==
LOC: WOUND 09:30
PROVIDERS: ATTEND Surgery
DX: E11.621 Type 2 diabetes mellitus with foot ulcer (principal); L97.422 Non-pressure chronic ulcer of left heel and midfoot with fat layer exposed; E11.40 Type 2 diabetes mellitus with diabetic neuropathy, unspecified; Q82.0 Hereditary lymphedema
CPT/HCPCS: 15275; 29581; Q4196; 82962

== ENCOUNTER 2019-03-15 10:59 | Outpatient (CLI) | payer MEDICARE ==
[2019-03-15] MEDS ORDERED: SODIUM CHLORIDE FLUSH SYRINGE 10 ML IV ONE (13:13)
== END 2019-03-15 11:00 | disposition home or self-care (01) ==
LOC: WOUND 10:59
PROVIDERS: ATTEND Surgery
DX: E11.621 Type 2 diabetes mellitus with foot ulcer (principal); L97.422 Non-pressure chronic ulcer of left heel and midfoot with fat layer exposed; E11.40 Type 2 diabetes mellitus with diabetic neuropathy, unspecified; Q82.0 Hereditary lymphedema
CPT/HCPCS: 11042; 11045; 15275; Q4196

== ENCOUNTER 2019-03-30 10:48 | Outpatient (CLI) | payer MEDICARE | END 2019-03-30 10:49 | disposition home or self-care (01) | LOC: WOUND 10:48 | PROVIDERS: ATTEND Surgery | DX: E11.621 Type 2 diabetes mellitus with foot ulcer (principal); L97.522 Non-pressure chronic ulcer of other part of left foot with fat layer exposed; L84 Corns and callosities; E11.40 Type 2 diabetes mellitus with diabetic neuropathy, unspecified; Q82.0 Hereditary lymphedema ==

== ENCOUNTER 2019-04-06 10:43 | Outpatient (CLI) | payer MEDICARE ==
[2019-04-06] MEDS ORDERED: SILVER NITRATE APPLICATOR 1 EA TP ONE (12:00)
[2019-04-06] MEDS ORDERED: LIDOCAINE (4%) 40 MG/ML TOPICAL SOLN 50 ML BOTTLE TP ONE (12:00)
== END 2019-04-06 10:44 | disposition home or self-care (01) ==
LOC: WOUND 10:43
PROVIDERS: ATTEND Surgery
DX: E11.621 Type 2 diabetes mellitus with foot ulcer (principal); L97.522 Non-pressure chronic ulcer of other part of left foot with fat layer exposed; L97.422 Non-pressure chronic ulcer of left heel and midfoot with fat layer exposed; E11.40 Type 2 diabetes mellitus with diabetic neuropathy, unspecified; Q82.0 Hereditary lymphedema

== ENCOUNTER 2019-04-13 10:42 | Outpatient (CLI) | payer MEDICARE ==
[2019-04-13] MEDS ORDERED: SILVER NITRATE TP ONE (11:30)
== END 2019-04-13 10:43 | disposition home or self-care (01) ==
LOC: WOUND 10:42
PROVIDERS: ATTEND Surgery
DX: E11.621 Type 2 diabetes mellitus with foot ulcer (principal); L97.522 Non-pressure chronic ulcer of other part of left foot with fat layer exposed; L97.422 Non-pressure chronic ulcer of left heel and midfoot with fat layer exposed; E11.40 Type 2 diabetes mellitus with diabetic neuropathy, unspecified; Q82.0 Hereditary lymphedema

== ENCOUNTER 2019-04-18 11:10 | Outpatient (CLI) | payer MEDICARE | END 2019-04-18 11:11 | disposition home or self-care (01) | LOC: WOUND 11:10 | PROVIDERS: ATTEND Surgery | DX: E11.621 Type 2 diabetes mellitus with foot ulcer (principal); L97.522 Non-pressure chronic ulcer of other part of left foot with fat layer exposed; L97.422 Non-pressure chronic ulcer of left heel and midfoot with fat layer exposed; E11.40 Type 2 diabetes mellitus with diabetic neuropathy, unspecified; Q82.0 Hereditary lymphedema ==

== ENCOUNTER 2019-04-21 10:40 | Outpatient (CLI) | payer MEDICARE | END 2019-04-21 10:41 | disposition home or self-care (01) | LOC: WOUND 10:40 | PROVIDERS: ATTEND Surgery | DX: E11.621 Type 2 diabetes mellitus with foot ulcer (principal); L97.522 Non-pressure chronic ulcer of other part of left foot with fat layer exposed; L97.422 Non-pressure chronic ulcer of left heel and midfoot with fat layer exposed; E11.40 Type 2 diabetes mellitus with diabetic neuropathy, unspecified; Q82.0 Hereditary lymphedema ==

== ENCOUNTER 2019-04-26 10:46 | Outpatient (CLI) | payer MEDICARE | END 2019-04-26 10:47 | disposition home or self-care (01) | LOC: WOUND 10:46 | PROVIDERS: ATTEND Surgery | DX: E11.621 Type 2 diabetes mellitus with foot ulcer (principal); L97.521 Non-pressure chronic ulcer of other part of left foot limited to breakdown of skin; L97.422 Non-pressure chronic ulcer of left heel and midfoot with fat layer exposed; E11.40 Type 2 diabetes mellitus with diabetic neuropathy, unspecified; Q82.0 Hereditary lymphedema; L84 Corns and callosities ==

== ENCOUNTER 2019-04-28 11:07 | Outpatient (CLI) | payer MEDICARE ==
[2019-04-28] MEDS ORDERED: LIDOCAINE (4%) 40 MG/ML TOPICAL SOLN 50 ML BOTTLE TP ONE (12:00)
== END 2019-04-28 11:08 | disposition home or self-care (01) ==
LOC: WOUND 11:07
PROVIDERS: ATTEND Surgery
DX: E11.621 Type 2 diabetes mellitus with foot ulcer (principal); L97.521 Non-pressure chronic ulcer of other part of left foot limited to breakdown of skin; L97.422 Non-pressure chronic ulcer of left heel and midfoot with fat layer exposed; E11.40 Type 2 diabetes mellitus with diabetic neuropathy, unspecified; Q82.0 Hereditary lymphedema; L84 Corns and callosities
CPT/HCPCS: 15275; 29581; Q4196

== ENCOUNTER 2019-05-02 10:42 | Outpatient (CLI) | payer MEDICARE | END 2019-05-02 10:43 | disposition home or self-care (01) | LOC: WOUND 10:42 | PROVIDERS: ATTEND Surgery | DX: E11.621 Type 2 diabetes mellitus with foot ulcer (principal); L97.521 Non-pressure chronic ulcer of other part of left foot limited to breakdown of skin; L97.422 Non-pressure chronic ulcer of left heel and midfoot with fat layer exposed; E11.40 Type 2 diabetes mellitus with diabetic neuropathy, unspecified; Q82.0 Hereditary lymphedema; L84 Corns and callosities ==

== ENCOUNTER 2019-05-05 11:05 | Outpatient (CLI) | payer MEDICARE ==
[2019-05-05] MEDS ORDERED: SILVER NITRATE APPLICATOR 1 EA TP ONE (13:11)
== END 2019-05-05 11:06 | disposition home or self-care (01) ==
LOC: WOUND 11:05
PROVIDERS: ATTEND Surgery
DX: E11.621 Type 2 diabetes mellitus with foot ulcer (principal); L97.521 Non-pressure chronic ulcer of other part of left foot limited to breakdown of skin; L97.422 Non-pressure chronic ulcer of left heel and midfoot with fat layer exposed; E11.40 Type 2 diabetes mellitus with diabetic neuropathy, unspecified; Q82.0 Hereditary lymphedema; L84 Corns and callosities
CPT/HCPCS: 15275; 29581; Q4196

== ENCOUNTER 2019-05-12 11:00 | Outpatient (CLI) | payer MEDICARE | END 2019-05-12 11:01 | disposition home or self-care (01) | LOC: WOUND 11:00 | PROVIDERS: ATTEND Surgery | DX: E11.621 Type 2 diabetes mellitus with foot ulcer (principal); L97.521 Non-pressure chronic ulcer of other part of left foot limited to breakdown of skin; L97.422 Non-pressure chronic ulcer of left heel and midfoot with fat layer exposed; E11.40 Type 2 diabetes mellitus with diabetic neuropathy, unspecified; Q82.0 Hereditary lymphedema; L84 Corns and callosities | CPT/HCPCS: 15275; 29581; Q4196 ==

== ENCOUNTER 2019-05-23 14:17 | Outpatient (CLI) | payer MEDICARE | END 2019-05-23 14:18 | disposition home or self-care (01) | LOC: WOUND 14:17 | PROVIDERS: ATTEND Surgery | DX: E11.621 Type 2 diabetes mellitus with foot ulcer (principal); L97.521 Non-pressure chronic ulcer of other part of left foot limited to breakdown of skin; L97.422 Non-pressure chronic ulcer of left heel and midfoot with fat layer exposed; S80.822A Blister (nonthermal), left lower leg, initial encounter; E11.40 Type 2 diabetes mellitus with diabetic neuropathy, unspecified; Q82.0 Hereditary lymphedema; L84 Corns and callosities; X58.XXXA Exposure to other specified factors, initial encounter; Y93.89 Activity, other specified; Y92.89 Other specified places as the place of occurrence of the external cause; Y99.8 Other external cause status ==

== ENCOUNTER 2019-05-25 08:55 | Outpatient (CLI) | payer MEDICARE | END 2019-05-25 08:56 | disposition home or self-care (01) | LOC: WOUND 08:55 | PROVIDERS: ATTEND Surgery | DX: E11.621 Type 2 diabetes mellitus with foot ulcer (principal); L97.521 Non-pressure chronic ulcer of other part of left foot limited to breakdown of skin; L97.422 Non-pressure chronic ulcer of left heel and midfoot with fat layer exposed; S80.822D Blister (nonthermal), left lower leg, subsequent encounter; E11.40 Type 2 diabetes mellitus with diabetic neuropathy, unspecified; Q82.0 Hereditary lymphedema; L84 Corns and callosities; X58.XXXD Exposure to other specified factors, subsequent encounter ==

== ENCOUNTER 2019-06-03 10:51 | Outpatient (CLI) | payer MEDICARE | END 2019-06-03 10:52 | disposition home or self-care (01) | LOC: WOUND 10:51 | PROVIDERS: ATTEND Surgery | DX: E11.621 Type 2 diabetes mellitus with foot ulcer (principal); I87.312 Chronic venous hypertension (idiopathic) with ulcer of left lower extremity; L97.521 Non-pressure chronic ulcer of other part of left foot limited to breakdown of skin; L97.422 Non-pressure chronic ulcer of left heel and midfoot with fat layer exposed; L84 Corns and callosities; E11.40 Type 2 diabetes mellitus with diabetic neuropathy, unspecified; Q82.0 Hereditary lymphedema | CPT/HCPCS: 29581 ==

== ENCOUNTER 2019-06-06 13:49 | Outpatient (CLI) | payer MEDICARE | END 2019-06-06 13:50 | disposition home or self-care (01) | LOC: WOUND 13:49 | PROVIDERS: ATTEND Surgery | DX: E11.621 Type 2 diabetes mellitus with foot ulcer (principal); L97.521 Non-pressure chronic ulcer of other part of left foot limited to breakdown of skin; L97.422 Non-pressure chronic ulcer of left heel and midfoot with fat layer exposed; S80.822D Blister (nonthermal), left lower leg, subsequent encounter; E11.40 Type 2 diabetes mellitus with diabetic neuropathy, unspecified; Q82.0 Hereditary lymphedema; L84 Corns and callosities; X58.XXXD Exposure to other specified factors, subsequent encounter ==

== ENCOUNTER 2019-07-05 09:20 | Outpatient (CLI) | payer MEDICARE ==
[2019-07-05] MEDS ORDERED: SILVER NITRATE APPLICATOR 1 EA TP ONE (10:31)
== END 2019-07-05 09:21 | disposition home or self-care (01) ==
LOC: WOUND 09:20
PROVIDERS: ATTEND Surgery
DX: E11.621 Type 2 diabetes mellitus with foot ulcer (principal); L97.521 Non-pressure chronic ulcer of other part of left foot limited to breakdown of skin; L97.422 Non-pressure chronic ulcer of left heel and midfoot with fat layer exposed; S80.822D Blister (nonthermal), left lower leg, subsequent encounter; E11.40 Type 2 diabetes mellitus with diabetic neuropathy, unspecified; Q82.0 Hereditary lymphedema; L84 Corns and callosities; X58.XXXD Exposure to other specified factors, subsequent encounter

== ENCOUNTER 2019-07-13 13:07 | Outpatient (CLI) | payer MEDICARE | END 2019-07-13 13:08 | disposition home or self-care (01) | LOC: WOUND 13:07 | PROVIDERS: ATTEND Surgery | DX: E11.621 Type 2 diabetes mellitus with foot ulcer (principal); L97.521 Non-pressure chronic ulcer of other part of left foot limited to breakdown of skin; L97.422 Non-pressure chronic ulcer of left heel and midfoot with fat layer exposed; S80.822D Blister (nonthermal), left lower leg, subsequent encounter; E11.40 Type 2 diabetes mellitus with diabetic neuropathy, unspecified; Q82.0 Hereditary lymphedema; L84 Corns and callosities; X58.XXXD Exposure to other specified factors, subsequent encounter ==

== ENCOUNTER 2019-07-19 13:31 | Outpatient (CLI) | payer MEDICARE | END 2019-07-19 13:32 | disposition home or self-care (01) | LOC: WOUND 13:31 | PROVIDERS: ATTEND Surgery | DX: E11.621 Type 2 diabetes mellitus with foot ulcer (principal); I87.312 Chronic venous hypertension (idiopathic) with ulcer of left lower extremity; L97.521 Non-pressure chronic ulcer of other part of left foot limited to breakdown of skin; L97.422 Non-pressure chronic ulcer of left heel and midfoot with fat layer exposed; E11.40 Type 2 diabetes mellitus with diabetic neuropathy, unspecified; Q82.0 Hereditary lymphedema; L84 Corns and callosities ==

== ENCOUNTER 2019-07-22 13:01 | Outpatient (CLI) | payer MEDICARE | END 2019-07-22 13:02 | disposition home or self-care (01) | LOC: WOUND 13:01 | PROVIDERS: ATTEND Surgery | DX: E11.621 Type 2 diabetes mellitus with foot ulcer (principal); I87.312 Chronic venous hypertension (idiopathic) with ulcer of left lower extremity; L97.521 Non-pressure chronic ulcer of other part of left foot limited to breakdown of skin; L97.422 Non-pressure chronic ulcer of left heel and midfoot with fat layer exposed; E11.40 Type 2 diabetes mellitus with diabetic neuropathy, unspecified; Q82.0 Hereditary lymphedema; L84 Corns and callosities | CPT/HCPCS: 29581 ==

== ENCOUNTER 2019-07-29 14:05 | Outpatient (CLI) | payer MEDICARE | END 2019-07-29 14:06 | disposition home or self-care (01) | LOC: WOUND 14:05 | PROVIDERS: ATTEND Surgery | DX: I87.312 Chronic venous hypertension (idiopathic) with ulcer of left lower extremity (principal); E11.621 Type 2 diabetes mellitus with foot ulcer; L97.521 Non-pressure chronic ulcer of other part of left foot limited to breakdown of skin; L97.422 Non-pressure chronic ulcer of left heel and midfoot with fat layer exposed; E11.40 Type 2 diabetes mellitus with diabetic neuropathy, unspecified; Q82.0 Hereditary lymphedema; L84 Corns and callosities ==

== ENCOUNTER 2019-08-09 08:44 | Outpatient (CLI) | payer MEDICARE ==
[2019-08-09] MEDS ORDERED: SILVER NITRATE APPLICATOR 1 EA TP SCH (09:30)
== END 2019-08-09 08:45 | disposition home or self-care (01) ==
LOC: WOUND 08:44
PROVIDERS: ATTEND Surgery
DX: I87.312 Chronic venous hypertension (idiopathic) with ulcer of left lower extremity (principal); E11.621 Type 2 diabetes mellitus with foot ulcer; L97.521 Non-pressure chronic ulcer of other part of left foot limited to breakdown of skin; L97.422 Non-pressure chronic ulcer of left heel and midfoot with fat layer exposed; E11.40 Type 2 diabetes mellitus with diabetic neuropathy, unspecified; Q82.0 Hereditary lymphedema; L84 Corns and callosities
CPT/HCPCS: 29581

== ENCOUNTER 2019-11-24 14:06 | Outpatient (CLI) | payer MEDICARE | END 2019-11-24 14:07 | disposition home or self-care (01) | LOC: WOUND 14:06 | PROVIDERS: ATTEND Surgery ==

== ENCOUNTER 2020-01-11 11:26 | Outpatient (CLI) | payer MEDICARE | END 2020-01-11 11:27 | disposition home or self-care (01) | LOC: WOUND 11:26 | PROVIDERS: ATTEND Surgery | DX: E11.621 Type 2 diabetes mellitus with foot ulcer (principal); L97.522 Non-pressure chronic ulcer of other part of left foot with fat layer exposed; L97.422 Non-pressure chronic ulcer of left heel and midfoot with fat layer exposed; L84 Corns and callosities; E11.40 Type 2 diabetes mellitus with diabetic neuropathy, unspecified ==

== ENCOUNTER 2020-01-18 09:07 | Outpatient (CLI) | payer MEDICARE ==
--- NOTE | 2020-01-18 10:57 | Vascular Lab Report ---
DUPLEX DOPPLER LOWER EXTREMITY ARTERIAL, LEFT INDICATION: I87.312Chronic venous hypertension (idiopathic) with ulcer of lef. TECHNIQUE: Arterial duplex examination of the left lower extremity performed using B-mode, color flow and spectr al Doppler assessment. FINDINGS: Common Femoral Artery: PSV 140 cm/sec. Triphasic waveform. Proximal SFA: PSV 156 cm/sec. Triphasic waveform. Mid SFA: PSV 177 cm/sec. Biphasic waveform. Distal SFA: PSV 143 cm/sec. Monophasic waveform. Popliteal artery: PSV 134 cm/sec. Monophasic waveform. Posterior tibial artery: PSV 111 cm/sec. Monophasic waveform. Dorsalis Pedis Artery: PSV 78 cm/sec. Monophasic waveform. IMPRESSION: Left lower extremity arterial structures are patent although monophasic waveforms are demonstrated di janine. Doppler Waveform: * Triphasic is normal. * Biphasic is abnormal if clear transition from triphasic signal along vascular tree. * Monophasic is abnormal. Signer Name: Cornell Morales Jr, MD Signed: 01/18/2020 10:53 AM Workstation Name: [id number]
== END 2020-01-18 09:08 | disposition home or self-care (01) ==
LOC: VAS 09:07
PROVIDERS: ATTEND Surgery
DX: I87.312 Chronic venous hypertension (idiopathic) with ulcer of left lower extremity (principal); E11.621 Type 2 diabetes mellitus with foot ulcer

== ENCOUNTER 2020-02-09 10:50 | Outpatient (CLI) | payer MEDICARE ==
[2020-02-09] MEDS ORDERED: SILVER NITRATE APPLICATOR 1 EA TP ONE (12:00)
== END 2020-02-09 10:51 | disposition home or self-care (01) ==
LOC: WOUND 10:50
PROVIDERS: ATTEND Surgery
DX: E11.621 Type 2 diabetes mellitus with foot ulcer (principal); L97.425 Non-pressure chronic ulcer of left heel and midfoot with muscle involvement without evidence of necrosis; L97.412 Non-pressure chronic ulcer of right heel and midfoot with fat layer exposed; L97.522 Non-pressure chronic ulcer of other part of left foot with fat layer exposed; L84 Corns and callosities; E11.40 Type 2 diabetes mellitus with diabetic neuropathy, unspecified